=== PATIENT | female | born 1935 | race Caucasian/White ===

== ENCOUNTER 2023-06-21 18:06 | Inpatient (IN) | payer MEDICARE, SELFPAY ==
[2023-06-21] VITALS (12 sets, daily range): BP systolic 88–119; BP diastolic 46–85
[2023-06-21 15:33] LABS: ALT (SGPT) 31 U/L (0-35); AST (SGOT) 35 U/L (14-36); Albumin 3.2 g/dl (3.5-5.0); Alkaline Phosphatase 60 U/L (38-126); Blood Urea Nitrogen 79 mg/dl (7-17); Calcium 9.4 mg/dl (8.4-10.2); Carbon Dioxide 26 mmol/L (22-30); Chloride 108 mmol/L (98-107); Glucose 56 mg/dl (70-99); Magnesium 2.6 mg/dl (1.6-2.3); Potassium 5.2 mmol/L (3.5-5.1); Sodium 137 mmol/L (135-145); Total Bilirubin 0.7 mg/dl (0.2-1.3); Total Protein 5.6 g/dl (6.3-8.2)
[2023-06-21] MEDS: CARDIZEM 15 MG IV (15:49)
[2023-06-21] MEDS: CARDIZEM 125 IV (15:50)
[2023-06-21] MEDS: NSS 500 IV (15:50)
[2023-06-21 15:53] LABS: NT-proBNP 21200 pg/ml; Troponin I 0.231 ng/ml
[2023-06-21 15:54] LABS: % Basophils 0.9 % (0-2); % Eosinophils 2.1 % (0-6); % Immature Granulocytes 0.6 % (0-0.5); % Lymphocytes 18.1 % (20.5-51.1); % Monocytes 12.1 % (1.7-9.3); % Neutrophils 66.2 % (42.2-75.2); Absolute Basophils 0.1 10^3/uL (0-0.2); Absolute Eosinophils 0.2 10^3/uL (0-0.7); Absolute Immature Granulocytes 0.1 10^3/uL (0-0.05); Absolute Lymphocytes 2.1 10^3/uL (1.2-3.4); Absolute Monocytes 1.4 10^3/uL (0.1-0.6); Absolute Neutrophils 7.6 10^3/uL (1.4-6.5); Hemoglobin 11.9 g/dL (12.0-16.0); Mean Corpuscular Hgb 38.1 pg (27.0-31.0); Mean Corpuscular Volume 112.2 fL (81.0-99.0); Mean Platelet Volume 12.3 fL (7.4-10.4); Nucleated Red Blood Cells % 0.2 %; Platelet Count 136 10^3/uL (130-400); Red Blood Cell Count 3.12 10^6/uL (4.20-5.40); Red Cell Dist. Width 15.6 % (11.5-14.5); White Blood Cell Count 11.4 10^3/uL (4.8-10.8)
--- NOTE | 2023-06-21 16:42 | ED.GENMED ---
History of Present Illness
General
Chief Complaint: Fatigue
Source: patient
Exam Limitations: none
Time Seen by Provider: 06/21/23 14:52
Nursing documentation reviewed up to this point in time: agreed with
Travel History
Have you had any contact with someone who has COVID-19?: Yes
Comment: na
Do you have any symptoms of coronavirus? Fever > 100 degrees, chills, cough, shortness of breath, sore throat, loss of taste or smell, muscle aches, or headache?: Yes
Symptoms:: na
History of Present Illness
History of Present Illness:
Patient presents to ED secondary to worsening shortness of breath with exertion over the past 1 week. Denies fever or chills. Denies chest pain. Denies nausea or vomiting. Denies recent illness. Denies recent change in medications or diet. Of
note, patient states that she has had difficult time eating over the past 1 week, as her 'hiatal hernia' has been getting worse. Denies recent travel or surgery. Denies leg pain or swelling. Upon arrival, patient is found to be in rapid atrial
fibrillation, which is new for the patient.
Past History
Past History
ED Past Medical History: NIDDM
Social History
Living: alone
Review of Systems
Review of Systems
Allergies reviewed?: Yes
All Other Systems: ROS reviewed and negative except as documented in HPI and ROS
Constitutional: Reports no symptoms
EENT: Reports no symptoms
Respiratory: Reports trouble breathing
Cardiac: Reports no symptoms
ABD/GI: Reports no symptoms
: Reports no symptoms
Musculoskeletal: Reports no symptoms
Skin: Reports no symptoms
Neurological: Reports no symptoms
Phy Exam
Physical Exam
Physical Exam:
Physical Exam
General: mild distress, not acutely ill. afebrile. tachycardic
Head: nc/at. eomi
Neck: supple. no meningeal signs.
Heart: irregularly irregular, no murmur. equal radial pulses.
Lungs: mild respiratory distress. diminished breath sounds bilaterally
Abdomen: normal bowel sounds. not tender.
Neuro: alert and oriented. no focal neurological deficits
Skin: no rash
Psychiatric: well kept. interactive and cooperative
Extremities: no edema. no calf tenderness.
Course
Orders/Labs/Results
Orders:
Orders
06/21/23 14:55
Electrocardiogram (*1) Urgent
Reason for Study: Tachycardia
EKG- Treatment ONCE
BNP [NT-proBNP] Urgent
Troponin I Urgent
06/21/23 14:59
Comprehensive Metabolic Panel Urgent
Magnesium Urgent
TSH Urgent
06/21/23 Dinner
2200 calorie (18 carb) Diabetic
At Your Request: Limited Participation
06/21/23 15:22
Diltiazem HCl [Cardizem] 15 mg IV NOW STA
06/21/23 15:23
0.9% Sodium Chloride 500 ml [Nss] 500 ml IV BOLUS
CR Chest Portable - 1 View Urgent
Comment:
Reason For Exam: sob
Reason Study Needs to be Portable: Patient Unstable
06/21/23 15:30
Diltiazem 125 mg/125 ml Nss [Cardizem] 125 mg in 125 ml IV PER PROTOCOL
Initial dose in mg/hr, then titrate:: 2.5
Titrate to keep:: Heart rate 80-100 bpm
Titrate by mg/hr:: 5 mg/hr
Frequency of titrations (minutes):: 15
Maximum dose in mg/hr:: 15
06/21/23 15:36
Diltiazem HCl [Cardizem] 25 mg .ROUTE .STK-MED ONE
06/21/23 15:38
Complete Blood Count/With Diff Urgent
06/21/23 16:28
CR Chest - 2 Views Urgent
Comment:
Reason For Exam: sob
06/21/23 17:15
Dextrose 50%-Water [Dextrose 50% Syringe] 25 grams IV NOW STA
06/21/23 17:31
Admit/Transfer Patient As Directed
Co-Sign Provider:
Level of Care: Inpatient admission
Assign to:: IVU
Physician / Group: Hospitalist
Diagnosis: Afib
Reason for Hospitalization: .
Expected length of stay greater than two midnights?: Yes
ELOS- Estimated Length of Stay in days: 3
I certify the patient meets the requirements for IP care: Yes
Code Status As Directed
Resuscitation Status: Full Code
06/21/23 17:35
Heparin 4,000 units IV NOW STA
Heparin 4,000 units IV NOW STA
06/21/23 17:54
Digoxin [Lanoxin] 125 mcg IV NOW STA
06/21/23 17:59
PTT Urgent
06/21/23 18:24
Troponin I Q8H
Aspirin Low Dose EC [Aspir Low (Enteric Coated)] 81 mg PO QPM
Atorvastatin [Lipitor] 80 mg PO QPM
Calcium Gluconate 1 gram/100mL [Calcium Gluconate] 1 gram in 100 ml IV ONCE
Dextrose 50%-Water [Dextrose 50% Syringe] 12.5 grams IV [id number] PRN
Ezetimibe [Zetia] 10 mg PO QPM
Glucagon [GlucaGen] 1 mg IM PRN PRN
Heparin 57091 Units/250 ml 25,000 units in 250 ml IV PER PROTOCOL
Weight to be used for heparin protocol in kilograms (kg):: 88
Protocol:: Cardiac Tx/Acute Coronary
PTT Goal Range to be used:: PTT 73 to 111 seconds
Order type:: Initial
INITIAL Infusion Dose (UNITS/KG/hr) & then follow protocol:: 12 units/kg/hr
Infusion Dose in UNITS/hr & then follow protocol (UNITS/hr):: 1,000
INFUSION RATE in mL/hr & then follow protocol (mL/hr):: 10
PTT less than or equal to 64 seconds:: Increase rate by 200 units/hr (+ 2 mL/hr)
PTT 64.1 to 72.9 seconds:: Increase rate by 100 units/hr (+ 1 mL/hr)
PTT 73 to 111 seconds:: Target Range. No change in rate.
PTT 111.1 to 130.9 seconds:: Decrease rate by 100 units/hr (- 1 mL/hr)
PTT 131 to 199.9 seconds:: HOLD for 1 hr. Then decrease rate by 200 units/hr (- 2 mL/hr)
PTT greater than or equal to 200 seconds:: HOLD for 2 hrs & Notify Provider. Then decrease by 200 units/hr (-
2 mL/hr)
Lab follow-up:: Each change, PTT q6h until 2 consecutive are therapeutic. Then PTT
daily.
Loperamide [Imodium] 2 mg PO Q6HPRN PRN
06/21/23 18:24
Echo 2D MMode Color/Doppler [Echo 2D MMode Color/Doppler] Routine
Reason for Study: Afib
Consult Cardiology [CARDIOLOGY CONSULT] Routine
Consulting Provider: Ian Gonzalez
Was physician already notified: Yes
Reason for consult: A fib
PTT Urgent
Comment: Obtain baseline before beginning heparin infusion if not already collected
Bedside Glucose Monitoring As Directed
Frequency: AC&HS
Comment: Change to q6h if pt on TPN, tube feeding or not eating
Bladder Scan As Directed
Follow Bladder Retention/Intermittent Cath Algorithm?: Yes
PRN if no void in __ hours: 6
Frequency: Per Retention Algorithm
If Bladder Scan Result >: 400
then:: Straight cath
Notify MD As Directed
Notify physician if: Call provider for further orders if PTT is greater than or equal to 200 per heparin
infusion protocol.
Nursing to Place Non Medication Order As Directed
Physician Order: PTT 6 hours after initial start of Heparin infusion
Straight Cath As Directed
Frequency: Per Retention Algorithm
Additional Instructions: straight cath as needed per acute urinary retention algorithm for 24 hrs
Additional Instructions: for bladder scan greater than 400 mL
06/21/23 20:00
Acetaminophen [Tylenol] 650 mg PO BID
06/21/23 22:00
Doxazosin Mesylate [Cardura] 2 mg PO HS
06/22/23 02:24
Troponin I Q8H
06/22/23 06:00
Glycohemoglobin (HgbA1c) IN AM
06/22/23 07:30
Insulin Aspart Corrective Low [Novolog Flexpen-Low Resistance] See Protocol SC AC
06/22/23 08:00
Pantoprazole [Protonix IV] 40 mg IV DAILY
06/22/23 10:24
Troponin I Q8H
Abnormal Lab Results
06/21/23 06/21/23 06/21/23
14:55 14:59 15:38
WBC 11.4 H 10^3/uL
(4.8-10.8)
RBC 3.12 L 10^6/uL
(4.20-5.40)
Hgb 11.9 L g/dL
(12.0-16.0)
Hct 35.0 L %
(37.0-47.0)
MCV 112.2 H fL
(81.0-99.0)
MCH 38.1 H pg
(27.0-31.0)
RDW 15.6 H %
(11.5-14.5)
MPV 12.3 H fL
(7.4-10.4)
Abs Immat Gran (auto) 0.1 H 10^3/uL
(0-0.05)
Absolute Neuts (auto) 7.6 H 10^3/uL
(1.4-6.5)
Absolute Monos (auto) 1.4 H 10^3/uL
(0.1-0.6)
Immature Gran % 0.6 H %
(0-0.5)
Lymphocytes % 18.1 L %
(20.5-51.1)
Monocytes % 12.1 H %
(1.7-9.3)
Potassium 5.2 H mmol/L
(3.5-5.1)
Chloride 108 H mmol/L
(98-107)
BUN 79 H mg/dl
(7-17)
Creatinine 2.9 H mg/dL
(0.6-1.0)
Glucose 56 L mg/dl
(70-99)
Magnesium 2.6 H mg/dl
(1.6-2.3)
Troponin I 0.231 H* ng/ml
Total Protein 5.6 L g/dl
(6.3-8.2)
Albumin 3.2 L g/dl
(3.5-5.0)
TSH 5.20 H uIU/ml
(0.47-4.68)
POC Glucose
06/21/23
17:11
WBC
RBC
Hgb
Hct
MCV
MCH
RDW
MPV
Abs Immat Gran (auto)
Absolute Neuts (auto)
Absolute Monos (auto)
Immature Gran %
Lymphocytes %
Monocytes %
Potassium
Chloride
BUN
Creatinine
Glucose
Magnesium
Troponin I
Total Protein
Albumin
TSH
POC Glucose 53 L* mg/dl
(70-99)
06/21/23 15:38
06/21/23 14:59
Vital Signs
Initial and Last Documented VS:
Initial Vital Signs
Temp Pulse Resp BP Pulse Ox
98.4 F 150 23 119/72 100
06/21/23 14:33 06/21/23 14:33 06/21/23 14:33 06/21/23 14:33 06/21/23 14:33
Last Documented Vital Signs
Temp Pulse Resp BP Pulse Ox
98.4 F 127 18 110/61 99
06/21/23 14:33 06/21/23 18:29 06/21/23 18:29 06/21/23 18:29 06/21/23 18:29
MDM/Problems Addressed
MDM/Problems Addressed:
Patient found to be in rapid atrial fibrillation. Patient started on Cardizem infusion with improvement in heart rate. Elevated troponin noted, without chest pain, likely secondary to tachycardia. Patient will be admitted for further evaluation
and treatment.
Will defer anticoagulation to admitting team.
Critical care statement: A total of 40 minutes of critical care time was provided for this patient. This includes management of unstable vital signs, evaluation of the patient at bedside, reviewing the patient's pertinent medical records, discussion
with consultants, review of old EKGs and review of pertinent medical records. This time with separate from time utilized to perform the aforementioned documented procedures
*Critical Care Note
Total Time (30-74mins, 75-104mins- exclusive of procedures): 40 min
ED Attending Note
-
Portions of this chart may have been created with voice recognition software.� Occasional wrong word or��sound alike� substitutions may have occurred due to the inherent limitations of voice recognition software.
Discharge Plan
Departure
Patient Disposition: Admit
Date of Disposition: 06/21/23
Time of Disposition: 16:48
Admit to: IMU
Presentation/result/management discussed w/ accepting MD/DO: Hospitalist
Discharge Problem:
Atrial fibrillation, rapid, Abnormal cardiac enzyme level
Interventions
Interventions:
*Risk Screen - Suicide Last Done: 06/21/23 14:33
*General Assessment Last Done: 06/21/23 14:33
*Neglect/Abuse Screening Last Done: 06/21/23 14:33
*ED COVID-19 Vaccine History Last Done: 06/21/23 14:33
*Nursing Disposition Last Done: 06/21/23 18:27
Discharge Date and Time
Discharge Date/Time: 06/21/23 18:27
[2023-06-21 17:13] LABS: Glucose - Point of Care 53 mg/dl (70-99)
[2023-06-21] MEDS: DEXTROSE 50% SYRINGE 25 GRAMS IV (17:15)
--- NOTE | 2023-06-21 17:30 | HPS.HSE ---
Family Physician
-
Family Physician: Ashtyn Newby
Chief Complaint
-
Shortness of breath and weakness for 1 week during
History of Present Illness
88 years old female presented with shortness of breath and weakness for 1 week. History taken from the patient and family at bedside. Patient had diarrhea a week ago. She had one-time vomiting and thought was related to her hiatal hernia. She
has not been eating well the whole week. She had another bout of diarrhea last night for one time. Nonbloody. She continued to have shortness of breath and not feeling well. She was brought into the emergency room. She was found to have rapid
atrial fibrillation around 140-150. She was started on Cardizem drip. Patient denied history of cardiac disease in the past although coronary artery disease was on her record. 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 Her blood pressure dropped
in the ER to systolic 88 and patient became cold and clammy. Immediate check of blood glucose showed 53. Patient was given dextrose 50. She was given IV fluid and Cardizem drip was put on hold. Patient took her insulin today without eating
proper meals. Patient denied chest pain. She denied hypoxia in the past. She had mild elevation in white count at 11.4 creatinine 2.9 with potassium 5.2. Patient has known chronic kidney disease stage IV per records. Patient follows with
[facility] for kidney disease. Initial troponin was 0.231.
Medical History
Past Medical History
Past Medical History: Reports Other ( Type 2 diabetes, polymyalgia rheumatica, insomnia, hyperlipidemia, chronic kidney disease stage IV, venous insufficiency of lower extremities, obesity, coronary artery disease, dysphagia/hiatal hernia, back
pain, gastroesophageal reflux disease.)
Past Surgical History: Reports Other (No recent major surgery)
Social History
Tobacco: Non-smoker
Alcohol: None
Drug: None
Personal:
Living: Alone
Employment: Retired
Family History
Family History: Other (History of atrial fibrillation in the family)
Allergies / Home Medications
Allergies reflects when Allergies were last updated in [facility].
Home Medications with original date entered in [facility]
Allergy/Medication List:
Allergies
Allergy/AdvReac Type Severity Reaction Status Date / Time
No Known Allergies Allergy Verified 09/14/15 09:54
Home Medications
insulin aspar prot-insulin aspart 100 unit/mL (70-30) subcutaneous pen (Novolog Mix 70-30FlexPen U-100) 15 units (0.15 mL) SC BID@0800,1700 ##2 08/15/19
acetaminophen 325 mg tablet (Tylenol) 650 mg PO BID 06/21/23
aspirin 81 mg tablet,delayed release 81 mg PO QPM 06/21/23
atorvastatin 80 mg tablet (Lipitor) 80 mg PO QPM 06/21/23
bismuth subsalicylate 262 mg/15 mL oral suspension (Pepto-Bismol) 262 mg PO BIDPRN PRN diarrhea 06/21/23
calcium carbonate 500 mg-vitamin D3 10 mcg (400 unit) tablet (Calcium 500 + D) 1 tab PO BID 06/21/23
carvedilol 25 mg tablet (Coreg) 25 mg PO BID 06/21/23
doxazosin 2 mg tablet 2 mg PO HS 06/21/23
ezetimibe 10 mg tablet (Zetia) 10 mg PO QPM 06/21/23
furosemide 40 mg tablet (Lasix) 40 mg PO DAILY 06/21/23
loperamide 2 mg tablet 2 mg PO Q4HPRN PRN diarrhea 06/21/23
losartan 100 mg tablet 100 mg PO DAILY 06/21/23
omega 0-gzg-ozt-fish oil 1,000 mg (120 mg-180 mg) capsule (Fish Oil) 1 cap PO DAILY 06/21/23
therapeutic multivitamin 1 tab PO DAILY 06/21/23
Review of Systems
-
History Source: Patient
A 12 point ROS was completed and negative except as noted: Yes
Constitutional: Denies Fever or Chills
EENT: Denies Sore Throat or Runny Nose
Respiratory: Reports Trouble Breathing; Denies Cough
Cardiac: Denies Chest Pain
Abdomen/GI: Denies Abdominal Pain
: Denies Dysuria
Musculoskeletal: Denies Joint Pain
Skin: Denies Itching
Neurological: Denies Numbness
Endocrine: Denies Temp Intolerance
Hematologic/Lymphatic: Denies Bruising
Psych: Denies Panic Disorder
Physical Exam
Vital Signs
Vital Signs
Temp Pulse Resp BP Pulse Ox
98.4 F 109 17 88/59 97
06/21/23 14:33 06/21/23 17:02 06/21/23 15:30 06/21/23 17:02 06/21/23 17:02
Physical Exam
General: Appears Chronically Ill
HEENT: Anicteric and Moist mucous membranes
Respiratory: Rales (At the base)
Cardiac: Irregular Rhythm and Tachycardia
GI: Soft, Non Tender and Non Distended
Rectal: No Maroon Stools
Genito-urinary: No costovertebral tender
Musculoskeletal: No Clubbing, No Cyanosis and No Edema
Skin: No Jaundice
Neuro: AO x 3; No Slurred Speech, Facial Droop or Tremors
Psych: Calm and Intact Judgment/Insight
Laboratory Results
-
06/21/23 15:38
06/21/23 14:59
Laboratory Results
Total Bilirubin 0.7 mg/dl (0.2-1.3) 06/21/23 14:59
AST 35 U/L (14-36) 06/21/23 14:59
ALT 31 U/L (0-35) 06/21/23 14:59
Alkaline Phosphatase 60 U/L (38-126) 06/21/23 14:59
Troponin I 0.231 ng/ml H* 06/21/23 14:55
Impression/Plan
-
88 years old female presented with shortness of breath and weakness and was found to have rapid atrial fibrillation
#Atrial fibrillation with rapid ventricular response. No history of similar episodes in the past.
No history of cardiac disease per patient but CAD on records
Currently, patient denies chest pain. She reported weakness and shortness of breath over the last few days
Chest x-ray showing mild pleural effusion with signs of interstitial markings/cardiomegaly
EKG showed atrial fibrillation with with ST/T wave abnormalities
Troponin mildly positive.
Admit the patient to high level care IVU
Start the patient on Cardizem drip but patient became hypotensive. Will give some volume support with IV fluid
Cut back on drip rate.
Order echocardiogram
Start the patient on intravenous heparin. Monitor PTT
If blood pressure drops, will consider digoxin temporarily
Patient is not toxic appearing.
Appreciate cardiology input
# Hypoglycemia. Type 2 diabetes
Secondary to taking insulin and not maintaining good oral intake
Change her insulin to sliding scale only with Accu-Chek. Start dextrose 50 given now. Will monitor blood glucose
#Chronic kidney disease stage IV.
Creatinine on admission 2.9. Creatinine 2020 1.7. According to records, she is stage IV per nephrology evaluation
No flank pain. No hematuria. Monitor for retention
Will do bladder scan protocol
# Hyperkalemia. Hold losartan. Will give intravenous calcium gluconate.
Recheck potassium in few hours
# Type II MS secondary to rapid atrial fibrillation
Will trend troponin. No chest pain. Patient is on IV heparin.
Order echo
Eventual ischemic workup
# Hypovolemic shock/hypotension exacerbated by Cardizem drip
I think the patient is volume depleted. She has not eaten for a while.
Will give IV fluid and monitor. Hold blood pressure medications including Lasix, losartan, carvedilol.
# Obesity
# Gastroesophageal reflux disease/history of hiatal hernia
Keep on PPI, will add IV Protonix.
As needed Imodium for diarrhea. Abdominal examination is benign.
# Hyperlipidemia
# History of polymyalgia rheumatica/insomnia
Continue with Tylenol twice daily.
Total critical time spent to see the patient, examine the patient on the floor, review data and lab results, discuss treatment plan with patient, ER doctor and nursing staff around 85 minutes
[2023-06-21 18:20] LABS: APTT 25.6 Sec (23.4-35.0)
[2023-06-21 18:23] LABS: Glucose - Point of Care 151 mg/dl (70-99)
--- NOTE | 2023-06-21 18:50 | PTCARENOTE ---
received patient from ER, extremely [place] with bialt hearing aids and son at bedside. monitor placed, Afib, HR 132, BP 110/61. 2 INT's in left arm, patient has blood work that needs to be drawn , patient is a very difficult stick and unable to obtain
, paged phlebotomy. noticed from ER report that BS was 53 and was treated in ER but no follow up BS, accu check obtained 151, will obtain venous glucose as per protocol. ordered patient dinner. oriented to room and surroundings. report given to on
coming RN.
[2023-06-21] MEDS: CALCIUM GLUCONATE 100 IV (19:56)
[2023-06-21] MEDS: ZETIA 10 MG PO (20:02)
[2023-06-21] MEDS: ASPIR LOW (ENTERIC COATED) 81 MG PO (20:02)
[2023-06-21] MEDS: TYLENOL 650 MG PO (20:02)
[2023-06-21] MEDS: LIPITOR 80 MG PO (20:03)
[2023-06-21] MEDS: LANOXIN 125 MCG IV (20:03)
[2023-06-21 20:05] LABS: APTT 33.5 Sec (23.4-35.0)
[2023-06-21 20:07] LABS: Glucose 143 mg/dl (70-99)
[2023-06-21] MEDS: HEPARIN 4000 UNITS IV (20:34)
[2023-06-21] MEDS: HEPARIN 25000 UNITS/250 ML IV (20:41)
[2023-06-21 22:38] LABS: Glucose - Point of Care 206 mg/dl (70-99)
[2023-06-21 22:53] LABS: Troponin I 0.353 ng/ml
--- NOTE | 2023-06-21 23:09 | PTCARENOTE ---
Addendum entered by Kailee Mckinney RN 06/21/23 23:26:
She continues to be A-Fib on the monitor with HR in the 120s-130s.
Original Note:
Received patient at change of shift this PM. AAOx3. She is [employer] [employer] bilaterally and wears hearing aides in both ears. VSS. She is hypotensive and unable to tolerate Cardizem drip at this time. SBPs dropped into 80s with this in ED. Will continue to
monitor BPs. Discussed this with Nessa Cisneros NP and she would like to keep Cardizem as an active order, but not started again unless BPs are maintaining SBP of over 100. HS BP medication held and parameters added. INTx2 patent. She is a difficult
stick and a midline was placed in her right upper arm. Heparin drip started at 10mL/hr. She denies chest pain or discomfort. Plan of care discussed. We discussed her medications in depth and Heparin was explained. She has no further questions about
these at this time. She is receptive to teaching and motivated. She denies pain and appears comfortable in bed at this time. Will continue to monitor.
[2023-06-22] VITALS (22 sets, daily range): BP systolic 89–123; BP diastolic 46–91; BMI 34.6
[2023-06-22 03:57] LABS: APTT 156.4 Sec (23.4-35.0)
--- NOTE | 2023-06-22 06:36 | W.PN.HOSP.TC ---
Today's Communication/Plan
-
.
Assessment / Plan
Assessment / Plan
Physical Exam
General: Appears Chronically Ill but not in distress.
HEENT: Anicteric and Moist mucous membranes
Respiratory: Rales (At the base)
Cardiac: Irregular Rhythm and Tachycardia
GI: Soft, Non Tender and Non Distended
Rectal: No Maroon Stools
Genito-urinary: No costovertebral tender
Musculoskeletal: No Clubbing, No Cyanosis and No Edema
Skin: No Jaundice
Neuro: AO x 3; No Slurred Speech, Facial Droop or Tremors
Psych: Calm and Intact Judgment/Insight
88 years old female presented with shortness of breath and weakness and was found to have rapid atrial fibrillation
#Atrial fibrillation with rapid ventricular response.� No history of similar episodes in the past.
HR around 110-130 this morning
Not on Cardizem gtt due to hypotension
Given one dose Digoxin that helped, will try another
Can start on low dose oral Cardizem or IV Cardizem low rate
Order Echo
on IV Heparin gtt . [id number] around 6
Appreciate cardiology input
# Suspect Acute HRpEF
We do not have new Echo, will repeat
Unable to do Lasix while low BP, gaol to stabilize HR for now and trial of diuretic therapy
Might need pressure support
# Hypoglycemia.�Resolved
Hx of Type 2 diabetes
s/p D50
Now on ISS / Diabetic diet
#Chronic kidney disease stage IV.
Creatinine on admission 2.9.� Creatinine 2020 1.7.� According to records, she is stage IV per nephrology evaluation
No flank pain.� No hematuria.� Monitor for retention
Bladder scan protocol
Repeat BMP
# Hyperkalemia.� Hold losartan.� s/p intravenous calcium gluconate.
Recheck potassium
# Type II MO secondary to rapid atrial fibrillation
� No chest pain.� Patient is on IV heparin.
Order echo
Eventual ischemic workup
# Hypovolemic shock/hypotension exacerbated by Cardizem drip
I think the patient is volume depleted.� She has not eaten for a while.
Will give IV fluid and monitor.� Hold blood pressure medications including Lasix, losartan, carvedilol.
# Obesity
# Gastroesophageal reflux disease/history of hiatal hernia
Keep on PPI IV Protonix.
As needed Imodium for diarrhea.� Abdominal examination is benign.
# Hyperlipidemia
# History of polymyalgia rheumatica/insomnia
Continue with Tylenol twice daily.
Total time spent to see the patient, examine the patient on the floor, review data and lab results, discuss treatment plan with patient, and nursing staff around 59 minutes
Anticipated Discharge: > 48 hours
Subjective/Interval History
-
Date of Service: June 22, 2023
Exertional SOB
No chest pain
No abd pain
Night team: Digoxin helped to lower HR, Off Cardizem gtt
Objective Data
-
Labs:
Laboratory Results
06/21/23 06/21/23 06/22/23
19:42 19:43 02:42
APTT 33.5 156.4 H*
Glucose 143 H
06/22/23
11:10
APTT Pending
Glucose
Vital Signs:
Vital Signs
Temp Pulse Resp BP Pulse Ox
98.3 F 145 22 103/66 100
06/22/23 02:35 06/22/23 02:32 06/22/23 02:35 06/22/23 02:32 06/22/23 02:35
I&O
06/20/23 06/21/23 06/22/23
06:59 06:59 06:59
Intake Total 960 / 960
Balance 960 / 960
--- NOTE | 2023-06-22 07:50 | CON.CAR ---
Consultation
Consultation Request
Date/Time Consultation Requested: 06/21/2023 at 2000
Date/Time Consultation Performed: 06/22/2023 at 750
Requesting Provider: Dr. Aly
Performing Provider: Ian Gonzalez
Reason for Consultation: Atrial fibrillation
Medical History
-
Chief Complaint: Shortness of breath, fatigue
History of Present Illness:
88-year-old woman who has been short of breath for 1 week following what could have been a gastroenteritis, now with shortness of breath and progressive fatigue over the last month or so. No prior history of atrial fibrillation. She presented to
the emergency department with marginal blood pressure, heart rate approximately 140, markedly elevated proBNP and evidence of heart failure with atrial fibrillation and rapid ventricular response. Heart rate has been difficult to control since
admission on IV diltiazem, she is short of breath, no awareness of tachycardia. She has dysphagia and was planning to see Dr. Sweeney.
PMH:
CKD 4, creatinine 1.77, GFR 28 May 20, 2023
Type 2 diabetes
Hypertension
Hyperlipidemia
Polymyalgia rheumatica
Diabetic neuropathy
Obesity
Past Medical History
Past Medical History: Other (Per HPI)
Past Surgical History: Other (Cataract surgery)
Social History
Tobacco: Former Smoker
Alcohol: Occasional
Drug: None
Personal:
Living: Alone
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
Family History
Family History: Reviewed & Not Pertinent (Lives with foster families)
Allergies / Home Medications
Allergy/AdvReac Type Severity Reaction Status Date / Time
No Known Allergies Allergy Verified 09/14/15 09:54
Medication Instructions Recorded Confirmed Type
insulin aspar prot-insulin aspart 15 units (0.15 mL) SC 08/15/19 06/21/23 Rx
100 unit/mL (70-30) subcutaneous BID@0800,1700 ##2
pen (Novolog Mix 70-30FlexPen
U-100)
acetaminophen 325 mg tablet 650 mg PO BID 06/21/23 06/21/23 History
(Tylenol)
aspirin 81 mg tablet,delayed 81 mg PO QPM 06/21/23 06/21/23 History
release
atorvastatin 80 mg tablet (Lipitor) 80 mg PO QPM 06/21/23 06/21/23 History
bismuth subsalicylate 262 mg/15 mL 262 mg PO BIDPRN PRN diarrhea 06/21/23 06/21/23 History
oral suspension (Pepto-Bismol)
calcium carbonate 500 mg-vitamin 1 tab PO BID 06/21/23 06/21/23 History
D3 10 mcg (400 unit) tablet
(Calcium 500 + D)
carvedilol 25 mg tablet (Coreg) 25 mg PO BID 06/21/23 06/21/23 History
doxazosin 2 mg tablet 2 mg PO HS 06/21/23 06/21/23 History
ezetimibe 10 mg tablet (Zetia) 10 mg PO QPM 06/21/23 06/21/23 History
furosemide 40 mg tablet (Lasix) 40 mg PO DAILY 06/21/23 06/21/23 History
loperamide 2 mg tablet 2 mg PO Q4HPRN PRN diarrhea 06/21/23 06/21/23 History
losartan 100 mg tablet 100 mg PO DAILY 06/21/23 06/21/23 History
omega 1-zql-ybp-fish oil 1,000 mg 1 cap PO DAILY 06/21/23 06/21/23 History
(120 mg-180 mg) capsule (Fish Oil)
therapeutic multivitamin 1 tab PO DAILY 06/21/23 06/21/23 History
Physical Exam
Vital Signs
Temp Pulse Resp BP Pulse Ox
36.6 C 129 22 104/67 100
06/22/23 07:47 06/22/23 07:47 06/22/23 07:47 06/22/23 07:47 06/22/23 07:47
Lab Results
06/21/23 15:38
06/21/23 19:42
Troponin I 0.340 ng/ml H* 06/22/23 02:42
Ebr-R-Slpkrwtipty Pept 04065 pg/ml 06/21/23 14:55
Physical Exam
General: No Apparent Distress (Possibly mildly tachypneic)
Respiratory: Other (Diminished breath sounds)
Cardiac: Irregular Rhythm (Tachycardic rate around 140, no murmurs) and JVD (JVD difficult to assess)
Musculoskeletal: No Edema
Skin: Warm
Neuro: AO x 3
Psych: Calm
Impression / Plan
-
Impression:
Acute heart failure, suspect acute HFpEF
New onset atrial fibrillation with RVR, suspect 1 week in duration
DANIEL with CKD 4
Type 2 diabetes
Hypertension
Hyperlipidemia
Polymyalgia rheumatica
Diabetic neuropathy
Obesity
Dysphagia
Echo 08/2019: EF 50-55%, normal RV, mildly dilated left atrium, aortic sclerosis
Holter monitor August 2020: Normal sinus rhythm average 63 bpm occasional PVCs and PACs with rare short atrial and ventricular runs, 2% PVC burden, 1% PAC burden
Plan:
She presents with acute heart failure, I suspect HFpEF, likely related to atrial fibrillation.
Management is very challenging. She has acute kidney injury, and a history of dysphagia. A-fib duration is probably at least a week, possibly a month.
Thus far we have been unable to control her heart rate largely related to marginal blood pressure. We will attempt to manage without the use of pressor support though this may be necessary.
Will add IV amiodarone for rate control. She has received 2 doses of dig, given acute kidney injury will not give any more. Will try low-dose metoprolol and will add midodrine to support blood pressure. She may need Jitendra-Synephrine which would
require transfer to IMU or ICU.
Continue IV diltiazem for now though this is relatively contraindicated in the setting of HFpEF.
She will likely need transesophageal echo and cardioversion. However she may need GI evaluation given her history of dysphagia. She will likely require either EGD or barium swallow.
Stop heparin, start renally dosed Eliquis.
I discussed with patient and son.
Data Reviewed
-
EKG: Tracing Personally Visualized and interpreted (ECG atrial fibrillation, rapid ventricular response, nonspecific ST and T wave changes, consider lateral ischemia)
Radiology: Image Personally Visualized and interpreted (Small bilateral pleural effusions, interstitial prominence)
Labs: Labs Reviewed by me (Hemoglobin 11.9, MCV 112, platelets 136, troponin 0.34, proBNP 21,200, creatinine is 2.9, had been 1.7 on August 15, 2019, magnesium 2.6, normal TSH, potassium 5.2)
Old Records: Reviewed
[2023-06-22] MEDS: NSS (PRESERVATIVE FREE) 10 ML IV (08:00)
[2023-06-22 08:33] LABS: Glycohemoglobin (HgbA1c) 5.5 % (4.0-5.6)
[2023-06-22] MEDS: CORDARONE 103 MG IV (08:43)
[2023-06-22] MEDS: LOPRESSOR 12.5 MG PO ×4 (08:44→23:24)
[2023-06-22] MEDS: PROTONIX IV 40 MG IV (08:44)
[2023-06-22] MEDS: TYLENOL 650 MG PO ×2 (08:44→19:35)
[2023-06-22] MEDS: ELIQUIS 2.5 MG PO ×2 (08:47→19:34)
[2023-06-22] MEDS: FLUSH (NSS) 1 FLUSH IV (08:47)
[2023-06-22] MEDS: ProAmatine 5 MG PO ×3 (08:50→17:12)
[2023-06-22] MEDS: NOVOLOG FLEXPEN-LOW RESISTANCE SC ×2 (08:53→13:19)
[2023-06-22 08:55] LABS: Glucose - Point of Care 139 mg/dl (70-99)
[2023-06-22] MEDS: LANOXIN 125 MCG IV (09:07)
[2023-06-22] MEDS: CORDARONE 518 MG IV (09:15)
--- NOTE | 2023-06-22 09:26 | PTCARENOTE ---
Dr. Artem Gonzalez in with patient, monitor shows Afib in the 130's BP 104/67, Digoxin, Lopressor, midodrine, Eliquis given as ordered. IV amiodarone bolus given followed by a IV amiodarone drip via right midline at 1mg/min for 6 hours then will be
decreased to 0.5mg/min. IV heparin gtt. D/C'd as ordered. lab work drawn thru midline as ordered and sent to lab. BP 89/75, Dr. Artem Gonzalez aware that IV cardizem gtt has not been on since ER yesterday. patient is going to remain NPO for barium
swallow test as ordered. patient is extremely MINTO with bilat. hearing aids in. patient is SOB, o2 sat on 2 LNC 96%, can hear audible wheezes. patient doesnot appear to be in any distress at this time. patient will be transferred to CVICU.
[2023-06-22 09:33] LABS: Hematocrit 32.9 % (37.0-47.0); Hemoglobin 10.6 g/dL (12.0-16.0); Mean Corp Hgb Conc. 32.2 g/dL (33.0-37.0); Mean Corpuscular Hgb 37.5 pg (27.0-31.0); Mean Corpuscular Volume 116.3 fL (81.0-99.0); Mean Platelet Volume 12.3 fL (7.4-10.4); Platelet Count 129 10^3/uL (130-400); Red Blood Cell Count 2.83 10^6/uL (4.20-5.40); Red Cell Dist. Width 15.6 % (11.5-14.5); White Blood Cell Count 12.2 10^3/uL (4.8-10.8)
[2023-06-22 09:49] LABS: Blood Urea Nitrogen 82 mg/dl (7-17); Calcium 8.9 mg/dl (8.4-10.2); Carbon Dioxide 24 mmol/L (22-30); Chloride 103 mmol/L (98-107); Estimated Creatinine Clearance 13 ml/min; Glucose 144 mg/dl (70-99); Potassium 4.8 mmol/L (3.5-5.1); Sodium 135 mmol/L (135-145); eGFR 14.59
[2023-06-22 09:58] LABS: Troponin I 0.245 ng/ml
--- NOTE | 2023-06-22 11:34 | PTCARENOTE ---
Barium swallow completed, patient will return to IVU.
[2023-06-22 12:17] LABS: Glucose - Point of Care 180 mg/dl (70-99)
--- NOTE | 2023-06-22 14:14 | PTCARENOTE ---
Addendum entered by Sonia Torres RN 06/22/23 14:16:
Dr. Aly aware, already consulted renal.
Original Note:
patient has not voided since this am, bladder scanned patient, 4cc of urine. patient has no urge to void.
--- NOTE | 2023-06-22 14:44 | W.CON.NEPH ---
Addendum entered and electronically signed by Jean Carlos Estrella DO 06/22/23 15:16:
sbp ~100 and patient with volume overload
40mg IV lasix given
Original Note:
Consultation
-
Date/Time Consultation Requested: June 22, 2023 218pm
Date/Time Consultation Performed: June 22, 2023 2:18 PM
Requesting Provider: Sheeba
Performing Provider: Delores
Reason for Consultation: DANIEL/CKD 4
Medical History
-
Chief Complaint: Acute on chronic renal failure
History of Present Illness:
88-year-old woman who has been short of breath for several weeks following what could have been a gastroenteritis, now with shortness of breath and progressive fatigue over the last month or so.� No prior history of atrial fibrillation.� She
presented to the emergency department with marginal blood pressure, heart rate approximately 140, markedly elevated proBNP and evidence of heart failure with atrial fibrillation and rapid ventricular response.� Heart rate has been difficult to
control since admission on IV diltiazem, she is short of breath, no awareness of tachycardia.� She has dysphagia due to esophageal dysfunction. The patient has a longstanding history of diabetes with multiple microvascular complications and is
maintained on insulin therapy. She is maintained on Lasix therapy 40 mg daily for her congestive heart failure. She does have a history of hypertension and is maintained on losartan and carvedilol and doxazosin. She is seen by Dr. Avila of
nephrology for her CKD stage IV with a baseline creatinine noted to be 1.77 in May 2023. I was consulted for acute on chronic renal failure as her creatinine has now escalated up to 3 and she is essentially anuric.
Past Medical History
CKD 4, creatinine 1.77, GFR 28 May 20, 2023
Type 2 diabetes with known neuropathy
Hypertension
Hyperlipidemia
Polymyalgia rheumatica
Diabetic neuropathy
Obesity
Coronary artery
Hearing impaired
Social History
Tobacco: Former Smoker
Alcohol: Occasional
Drug: None
Family History
No CKD
Allergies / Home Medications
Allergy/AdvReac Type Severity Reaction Status Date / Time
No Known Allergies Allergy Verified 09/14/15 09:54
Medication Instructions Recorded Confirmed Type
acetaminophen 325 mg tablet 650 mg PO BID Pain 06/21/23 06/21/23 History
(Tylenol)
aspirin 81 mg tablet,delayed 81 mg PO QPM Blood Clot 06/21/23 06/21/23 History
release Prevention/Tx
atorvastatin 80 mg tablet (Lipitor) 80 mg PO QPM High Cholesterol 06/21/23 06/21/23 History
bismuth subsalicylate 262 mg/15 mL 262 mg PO BIDPRN PRN diarrhea 06/21/23 06/21/23 History
oral suspension (Pepto-Bismol)
calcium carbonate 500 mg-vitamin 1 tab PO BID Supplement 06/21/23 06/21/23 History
D3 10 mcg (400 unit) tablet
(Calcium 500 + D)
carvedilol 25 mg tablet (Coreg) 25 mg PO BID Heart 06/21/23 06/21/23 History
Disease/Condition
doxazosin 2 mg tablet 2 mg PO HS Urinary Issue 06/21/23 06/21/23 History
ezetimibe 10 mg tablet (Zetia) 10 mg PO QPM High Cholesterol 06/21/23 06/21/23 History
furosemide 40 mg tablet (Lasix) 40 mg PO DAILY Fluid 06/21/23 06/21/23 History
Retention/Swelling
loperamide 2 mg tablet 2 mg PO Q4HPRN PRN diarrhea 06/21/23 06/21/23 History
losartan 100 mg tablet 100 mg PO DAILY Blood Pressure 06/21/23 06/21/23 History
omega 4-zyk-svx-fish oil 1,000 mg 1 cap PO DAILY High Cholesterol 06/21/23 06/21/23 History
(120 mg-180 mg) capsule (Fish Oil)
therapeutic multivitamin 1 tab PO DAILY Supplement 06/21/23 06/21/23 History
insulin aspar prot-insulin aspart 15 units SC BID@00,1700 Diabetes 06/22/23 06/21/23 History
100 unit/mL (70-30) subcutaneous
pen (Novolog Mix 70-30FlexPen
U-100)
Review of Systems
-
History Source: Patient
All other systems: Negative unless noted
Constitutional: Fatigue (Decreased appetite)
EENT: Other (Chronic hearing impairment ()
Respiratory: Trouble Breathing
Cardiac: No Symptoms
Abdomen/GI: No Symptoms
: Incontinence and Difficulty Voiding
Musculoskeletal: No Symptoms
Skin: No Symptoms
Neurological: Other (Baseline lower extremity neuropathy)
Endocrine: No Symptoms
Hematologic/Lymphatic: No Symptoms
Physical Exam
Vital Signs
Vital Signs
Temp Pulse Resp BP Pulse Ox
97.9 F 127 22 109/89 96
06/22/23 07:47 06/22/23 13:18 06/22/23 07:47 06/22/23 13:21 06/22/23 08:30
Lab Results
WBC 12.2 10^3/uL (4.8-10.8) H 06/22/23 09:24
RBC 2.83 10^6/uL (4.20-5.40) L 06/22/23 09:24
Hgb 10.6 g/dL (12.0-16.0) L 06/22/23 09:24
Hct 32.9 % (37.0-47.0) L 06/22/23 09:24
Plt Count 129 10^3/uL (130-400) L 06/22/23 09:24
Sodium 135 mmol/L (135-145) 06/22/23 09:24
Potassium 4.8 mmol/L (3.5-5.1) 06/22/23 09:24
Chloride 103 mmol/L (98-107) 06/22/23 09:24
Carbon Dioxide 24 mmol/L (22-30) 02/11/24 09:24
BUN 82 mg/dl (7-17) H 06/22/23 09:24
Creatinine 3.0 mg/dL (0.6-1.0) H 06/22/23 09:24
eGFR 14.59 06/22/23 09:24
Glucose 144 mg/dl (70-99) H 06/22/23 09:24
Calcium 8.9 mg/dl (8.4-10.2) 06/22/23 09:24
Nxq-J-Tpufcnussvk Pept 58689 pg/ml 06/21/23 14:55
Albumin 3.2 g/dl (3.5-5.0) L 06/21/23 14:59
Physical Exam
General: AOx3 and Other (Obese)
HEENT: PERRL, EOMI, Ear/Nose Intact, Hearing Normal (Hearing impairment with bilateral hearing aid), Facial Symmetry (No asymmetry), Neck Supple, Trachea Midline, No JVD and No Thyromegaly
Respiratory: Normal Excursion and Other (Coarse breath sounds noted)
Cardiac: Regular Rate/Rhythm (Irregular rhythm) and Edema (+1)
Breast: Deferred by me
Abdomen: Soft, Nontender, Nondistended and No Hepatosplenomegaly
Musculoskeletal: No Clubbing, No Cyanosis and Edema (Trace edema)
Skin: No Rash
Neuro: Nonfocal/Grossly Intact and Other (Some plantar neurosensory deficit)
Hematologic/Lymphatic: No Cervical Lymphadenopathy
Psych: Mood/afflect pleasant
Assessment/Plan
-
Acute kidney injury
CKD stage IV with baseline creatinine 1.77
Decompensated congestive heart failure in setting of new onset atrial fibrillation with rapid ventricular response
Hypotension
Diabetes
History of hypertension
PMR history
Dyslipidemia
Obesity
Troponin leak
Plan:
Acute kidney injury:
-Likely prerenal in mediated in setting of hypotension due to decompensated congestive heart failure in setting of atrial fibrillation with rapid ventricular response
-Check fractional excretion of sodium
-Antihypertensives held
-Bladder scan obtained with less than 10 cc of urine
-Need to maximize MAP to greater than 65 with midodrine and/or pressor support to augment renal arterial perfusion pressure
-Accurate I's and O's and daily weight
-Will need eventual diuresis once hemodynamically more stable
-No acute hemodialysis requirement at this
Data Reviewed
-
Radiology: Image Personally Visualized and interpreted (Chest x-ray personally reviewed by myself noted lower lobe opacifications)
Medical Tests (Nuc Med, Echo etc): Image Personally Visualized and interpreted (EKG report reviewed noted atrial fibrillation rhythm with rapid ventricular response)
Labs: Labs Reviewed by me
Old Records: Reviewed (Noted previous creatinine in electronic medical record at 1.77 in May 2023)
Labs
-
Labs:
06/22/23:24
06/22/23:24
WBC 12.2 10^3/uL (4.8-10.8) H 06/22/23:24
RBC 2.83 10^6/uL (4.20-5.40) L 06/22/23:24
Hgb 10.6 g/dL (12.0-16.0) L 06/22/23:24
Hct 32.9 % (37.0-47.0) L 06/22/23:24
Plt Count 129 10^3/uL (130-400) L 06/22/23:24
Sodium 135 mmol/L (135-145) 06/22/23:24
Potassium 4.8 mmol/L (3.5-5.1) 06/22/23:24
Chloride 103 mmol/L (98-107) 06/22/23:24
Carbon Dioxide 24 mmol/L (22-30) 06/22/23:24
BUN 82 mg/dl (7-17) H 06/22/23:24
Creatinine 3.0 mg/dL (0.6-1.0) H 06/22/23 09:24
eGFR 14.59 06/22/23 09:24
Glucose 144 mg/dl (70-99) H 06/22/23 09:24
Calcium 8.9 mg/dl (8.4-10.2) 06/22/23 09:24
Tac-S-Mxsgnovwrys Pept 53063 pg/ml 06/21/23 14:55
Albumin 3.2 g/dl (3.5-5.0) L 06/21/23 14:59
[2023-06-22] MEDS: LASIX 40 MG IV (15:33)
--- NOTE | 2023-06-22 15:46 | PTCARENOTE ---
Dr. Mckinney in seeing patient, aware that patient has not voided today and bladder scan done, lasix 40mg IV given as ordered.
[2023-06-22] MEDS: LIPITOR 80 MG PO (17:12)
[2023-06-22] MEDS: ZETIA 10 MG PO (17:12)
[2023-06-22 17:17] LABS: Glucose - Point of Care 168 mg/dl (70-99)
[2023-06-22] MEDS: NOVOLOG FLEXPEN-LOW RESISTANCE 1 UNITS SC (17:17)
[2023-06-22 20:08] LABS: Urine Sodium 21 mmol/L (30-90)
[2023-06-22 21:27] LABS: Glucose - Point of Care 189 mg/dl (70-99)
--- NOTE | 2023-06-22 21:41 | PTCARENOTE ---
Pt. voided 300 ml mariaa urine in BSC; pending specimen sent. Remains A-fib on the monitor, rate 100's-120's. Pt. does get SOB with activity, exertional wheeze present, pulse ox 100% on 2L O2. Pt. very pleasant, completely oriented.
[2023-06-23] VITALS (12 sets, daily range): BP systolic 91–126; BP diastolic 42–84; PULSE 118–125; O2SAT 99; BMI 34.2
[2023-06-23] MEDS: LOPRESSOR 12.5 MG PO (06:22)
--- NOTE | 2023-06-23 06:34 | PTCARENOTE ---
Able to give all scheduled doses of metoprolol without dropping BP (SBP ranging low 100's - 110's). Continued A-fib on the monitor, HR mostly low 100's with sleep, 120's when OOB to use BSC. Amiodarone gtt infusing as ordered. Pt. voided another
350 ml mariaa urine without difficulty this morning.
[2023-06-23 06:57] LABS: Blood Urea Nitrogen 90 mg/dl (7-17); Calcium 8.9 mg/dl (8.4-10.2); Carbon Dioxide 22 mmol/L (22-30); Chloride 99 mmol/L (98-107); Estimated Creatinine Clearance 12 ml/min; Glucose 169 mg/dl (70-99); Potassium 5.2 mmol/L (3.5-5.1); Sodium 132 mmol/L (135-145); eGFR 13.01
[2023-06-23] MEDS: ELIQUIS PO (08:32)
[2023-06-23] MEDS: NSS (PRESERVATIVE FREE) 10 ML IV ×2 (08:33)
[2023-06-23] MEDS: TYLENOL 650 MG PO ×2 (08:33→19:22)
[2023-06-23] MEDS: ProAmatine 5 MG PO ×3 (08:34→18:02)
[2023-06-23] MEDS: FLUSH (NSS) 1 FLUSH IV (08:36)
[2023-06-23] MEDS: NOVOLOG FLEXPEN-LOW RESISTANCE SC (08:47)
[2023-06-23] MEDS: PROTONIX IV 40 MG IV (08:53)
[2023-06-23] MEDS: PACERONE 400 MG PO ×3 (08:53→22:34)
--- NOTE | 2023-06-23 09:43 | W.PN.HOSP.TC ---
Today's Communication/Plan
-
see bold
Assessment / Plan
Assessment / Plan
88 years old female presented with shortness of breath and weakness and was found to have rapid atrial fibrillation
#Atrial fibrillation with rapid ventricular response.� No history of similar episodes in the past.
Appreciate cardiology input, status post IV heparin/IV cardizem
Currently on amiodarone, and metoprolol tartrate
Consider PUJA/cardioversion pending GI workup of dysphagia versus reflux
Plan to start Eliquis once GI workup completed
# Suspect Acute HFpEF
Continue diuretics as per nephrology
Echocardiogram requested, fluid restriction
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
#Probable cardiorenal syndrome
Creatinine continues to worsen at 3.3 today, was 3, baseline 1.77
Nephrology following
#Dysphagia
Patient was supposed to see Dr. Sweeney on 06/24
Consult SPL, consult GI here
# Hyperkalemia
Hold losartan, low K diet
#Hyponatremia
Likely due to fluid overload, fluid restrict, Lasix as per nephrology
# Type 2 diabetes
# Hypoglycemia
Hypoglycemia resolved
Continue carb controlled diet, sliding scale insulin
# Type II IN secondary to rapid atrial fibrillation
No chest pain
# Hypovolemic shock/hypotension exacerbated by Cardizem drip
Hold losartan
Continue midodrine 5 mg 3 times daily
# Obesity
Affects all aspects of care
# Gastroesophageal reflux disease/history of hiatal hernia
Keep on PPI IV Protonix.
As needed Imodium for diarrhea.� Abdominal examination is benign.
# Hyperlipidemia
# History of polymyalgia rheumatica/insomnia
Continue with Tylenol twice daily.
DVT ppx - SCDs
Full Code
Total time spent to see the patient on the floor, examine the patient, review data and lab results, discuss treatment plan with patient, nursing staff around 51 minutes.
Physical Exam
General: Obese, no acute distress
HEENT: Normocephalic, Atraumatic, EOMI, MMM
Respiratory: Clear to Auscultation bilaterally
Cardiac: Normal S1/S2, tachycardic rate, irregular rhythm
GI: Soft, Nontender, Nondistended, Normal Bowel Sounds
Anticipated Discharge: > 48 hours
Subjective/Interval History
-
Date of Service: June 23, 2023
Patient reports food is getting stuck in her esophagus when eating. Denies palpitations, denies chest pain.
Objective Data
-
Labs:
Laboratory Results
06/23/23
05:55
Sodium 132 L
Potassium 5.2 H
Chloride 99
Carbon Dioxide 22
BUN 90 H
Creatinine 3.3 H
Glucose 169 H
Calcium 8.9
Vital Signs:
Vital Signs
Temp Pulse Resp BP Pulse Ox
98.0 F 123 20 116/68 98
06/23/23 06:17 06/23/23 08:53 06/23/23 06:17 06/23/23 08:53 06/23/23 06:17
I&O
06/22/23 06/23/23 06/24/23
06:59 06:59 06:59
Intake Total 960 / 960 302.8 / 302.8
Output Total 650 / 650
Balance 960 / 960 -347.2 / -347.2
--- NOTE | 2023-06-23 09:56 | PTCARENOTE ---
D/C'd IV amiodarone and started on po as ordered.
--- NOTE | 2023-06-23 10:34 | W.PN.CARDCBS ---
Addendum entered and electronically signed by Danial Streeter MD 06/23/23 11:23:
I saw and examined the patient.
The CRIPPLE CHASER or PA's note was reviewed and I agree with the note.
Comment: General: Well developed, well nourished in NAD.
Neck: Supple, no JVD, HJR, carotids +2 B/L, no bruits bilaterally.
Heart: Non displaced PMI, irregular, no murmurs, No S3, S4, no rubs.
Lungs: Scattered rhonchi
Extremities: No clubbing, cyanosis or edema bilaterally.
Neuro: Grossly nonfocal, awake, alert and oriented x3.
Remains in atrial fibrillation with poor heart rate control
Change amiodarone to p.o.
GI has been consulted and will consider PUJA/cardioversion pending workup of possible dysphagia versus reflux.
Also might consider rate control
Hold Eliquis until GI evaluation has been done
Increase Lopressor to 25 mg p.o. every 6 hours with plans to change to twice daily
Discussed with GI as well as primary service
check echo
Original Note:
Today's Communication / Plan
-
Stopped amiodarone gtt and transitioned to amiodarone 400 mg PO TID
Appreciate help of Hospitalist in consulting GI in case we move forward with PUJA/CV this admission
Eliquis now on hold, last dose 06/22/23 PM. Will restart Eliquis tonight if no GI procedures are planned
Impression / Plan
-
PCP: Ashtyn Newby PA-C
Cardiology: Dr. Herrera
Impression:
Acute HFpEF
Newly diagnosed Afib with RVR
DANIEL with CKD 4
Type 2 diabetes
Hypertension
Hyperlipidemia
Polymyalgia rheumatica
Diabetic neuropathy
Obesity
Dysphagia
Holter monitor August 2020: Normal sinus rhythm average 63 bpm occasional PVCs and PACs with rare short atrial and ventricular runs, 2% PVC burden, 1% PAC burden
Echo 08/13/19: EF 50-55%, normal RV, mildly dilated left atrium, aortic sclerosis
Echo 06/23/23: Study pending
Plan:
-Weight is down 6 lbs from admission after Lasix 40 mg IV x1 on 06/22/23 at 1515. Patient was taking Lasix 40 mg PO daily prior to admission.
-Cre up to 3.3 on 06/23/23 and Nephrology is following.
-Patient with rapid Afib on admission of unclear duration and this was a new diagnosis at time of admission. Initially plan was for rate control with Cardizem gtt, but hypotension proved difficult for optimal HR control so Cardizem gtt stopped and
patient was given Digoxin 125 mcg IV x2 doses of 06/21/23 and then started on an amiodarone gtt 06/22/23. Lopressor 12.5 mg PO q6 hours was ordered 06/22/23 as well.
-Amiodarone gtt converted to amiodarone 400 mg PO TID on 06/23/23 AM
-HRs in the 110-120 range and patient is intermittently hypotensive. Options include ongoing amiodarone PO for rate control or PUJA/CV.
-Patient reports dysphagia and was scheduled to see Dr. Sweeney in the office 06/24/23 at 10. Esophagram ordered by cardiology 06/22/23 was a limited study due to patient mobility and debility, but esophagus was normal in caliber, without significant
focal mucosal abnormality or mass/ulceration, decreased esophageal motility with tertiary contractions and no esophageal obstruction. Appreciate help of Hospitalist attending ordering a formal GI consultation on 06/23/23.
-Due to overall frailty might want to consider rate control alone.
-Midodrine 5 mg TID added 06/22/23 and BPs tolerating low dose Lopressor. Outpatient dose of losartan 100 mg daily is on hold.
-Eliquis 2.5 mg BID started on 06/22/23 in anticipation of possible PUJA/CV 06/23/23, but given above this is deferred and GI has been consulted so will hold Eliquis 06/23/23 AM and considering transitioning back to Heparin gtt while plan is made
HPI: 88-year-old woman who has been short of breath for 1 week following what could have been a gastroenteritis, now with shortness of breath and progressive fatigue over the last month or so.� No prior history of atrial fibrillation.� She presented
to the emergency department with marginal blood pressure, heart rate approximately 140, markedly elevated proBNP and evidence of heart failure with atrial fibrillation and rapid ventricular response.� Heart rate has been difficult to control since
admission on IV diltiazem, she is short of breath, no awareness of tachycardia.� She has dysphagia and was planning to see Dr. Sweeney.
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
Subjective
Date of Service: June 23, 2023
No palpitations
Objective
Labs:
06/22/23 09:24
06/23/23 05:55
Labs
Hgb 10.6 g/dL (12.0-16.0) L 06/22/23 09:24
Hct 32.9 % (37.0-47.0) L 06/22/23 09:24
Plt Count 129 10^3/uL (130-400) L 06/22/23 09:24
APTT Cancelled 06/22/23 11:10
Sodium 132 mmol/L (135-145) L 06/23/23 05:55
Potassium 5.2 mmol/L (3.5-5.1) H 06/23/23 05:55
BUN 90 mg/dl (7-17) H 06/23/23 05:55
Creatinine 3.3 mg/dL (0.6-1.0) H 06/23/23 05:55
Glucose 169 mg/dl (70-99) H 06/23/23 05:55
Troponins
06/21/23 06/21/23 06/21/23
14:55 19:42 22:19
Troponin I 0.231 H* Cancelled 0.353 H* D
06/22/23 06/22/23
02:42 09:24
Troponin I 0.340 H* 0.245 H* D
Vital Signs and I&O:
Vital Signs
Temp Pulse Resp BP Pulse Ox
98.0 F 132 20 116/68 98
06/23/23 06:17 06/23/23 10:00 06/23/23 06:17 06/23/23 08:53 06/23/23 08:30
Vital Signs
Temp Pulse Resp BP Pulse Ox
98.0 F 132 20 116/68 98
06/23/23 06:17 06/23/23 10:00 06/23/23 06:17 06/23/23 08:53 06/23/23 08:30
Intake & Output
06/21/23 06/22/23 06/23/23 06/24/23
06:59 06:59 06:59 06:59
Intake Total 960 / 960 302.8 / 302.8
Output Total 650 / 650
Balance 960 / 960 -347.2 / -347.2
Physical Exam
Physical Exam
GEN: NAD. AAO to person, place and situation
HEENT: EOMI
LUNGS: CTA B/L
CV: Irreg irreg
ABD: +BS
EXT: No edema
NEURO: Gross non-focal
SKIN: No rash
--- NOTE | 2023-06-23 12:27 | CON.GI ---
Addendum entered and electronically signed by Addie Gutierrez MD 06/23/23 16:04:
I saw and examined the patient.
The GROUND SOURCE HEAT PUMP TECHNICIAN or PA's note was reviewed and I agree with the note.
Comment: 88-year-old female with history of diabetes, chronic kidney disease, GERD presenting with shortness of breath, in the ER noted to have rapid atrial fibrillation. Reports having diarrhea last Friday but normal pattern is more for
constipation. She has history of trouble swallowing which has been chronic, mainly with liquids with regurgitation, sometimes solid food also feels like it is going down slow, usually no trouble with pills, no choking or coughing, no abdominal
pain, odynophagia, GERD or vomiting. No blood in the stool or black stool or unintentional weight loss or NSAID use. Upper endoscopy in 2021 showing normal esophagus, no evidence of eosinophilic esophagitis, erythema in the antrum, no H. pylori.
Upper GI study showing normal thoracic esophagus, decreased motility noted but free flow of contrast into the stomach without any obstruction, mucosal abnormality.
Colonoscopy in 2015, random biopsies with mild nonspecific colitis.
Mild anemia noted during this hospital visit without any overt bleeding.
-Dysphagia which seems to be chronic
Upper endoscopy without eosinophilic esophagitis or structural abnormalities
Likely esophageal dysmotility causing trouble swallowing
No contraindication to PUJA at this time
Evaluated by speech who recommended regular solids with thin liquids with precautions. No signs of aspiration noted.
Continue PPI.
Will arrange for outpatient follow-up with Dr. Mixon after discharge.
Will sign off, please call back if needed.
Original Note:
Consultation
-
Date/Time Consultation Requested: 06/23/23 1100
Date/Time Consultation Performed: 05/23/23 1220
Requesting Provider: Lalit Cooley MD
Performing Provider: GINA Don, Addie Gutierrez MD
Reason for Consultation: dysphagia
Medical History
Chief Complaint / HPI
Chief Complaint: dysphagia
History of Present Illness:
Pt is a 88yo with hx NIDDM, PMR, CKD, venous insufficiency, obesity,GERD with onset of shortness of breath with recent diarrhea and vomiting thought to be from hiatal hernia. In ER noted with rapid afib and marginal BP. Pt is scheduled for
possible PUJA cardioversion 06/23 and noted with complaints of dysphagia. She completed esophagram with some limitation of study without focal mucosal abnormality or mass. Some decreased esophageal motility with tertiary contraction without
obstruction. Hx EGD 04/2022 with erythema in antrum, gastric atrophy normal duodenum with neg.
Pt states symptoms worse with liquids. She will eat some thing solid and try to rinse down with liquid and then have regurgitation with liquids. Symptoms have been chronic for some time. She also had diarrhea and constipation. She denies wt
loss, nausea, abdominal pain, or rectal bleeding.
Past Medical History
Past Medical History: Arrhythmias (afib with RVR), CAD, GERD, Hypercholesterolemia, NIDDM, NM, Renal Failure (CKD) and Other (obesity, HH, PMR, insomnia, venous insufficiency)
Social History
Tobacco: Non-Smoker
Alcohol: Occasional (rare)
Drug: None
Living: Alone
Employment: Retired
Family History
Family History: Other (father with colon CA in 50's)
Allergies / Home Medications
Allergy/AdvReac Type Severity Reaction Status Date / Time
No Known Allergies Allergy Verified 09/14/15 09:54
Medication Instructions Recorded
acetaminophen 325 mg tablet 650 mg PO BID Pain 06/21/23
(Tylenol)
aspirin 81 mg tablet,delayed 81 mg PO QPM Blood Clot 06/21/23
release Prevention/Tx
atorvastatin 80 mg tablet (Lipitor) 80 mg PO QPM High Cholesterol 06/21/23
bismuth subsalicylate 262 mg/15 mL 262 mg PO BIDPRN PRN diarrhea 06/21/23
oral suspension (Pepto-Bismol)
calcium carbonate 500 mg-vitamin 1 tab PO BID Supplement 06/21/23
D3 10 mcg (400 unit) tablet
(Calcium 500 + D)
carvedilol 25 mg tablet (Coreg) 25 mg PO BID Heart 06/21/23
Disease/Condition
doxazosin 2 mg tablet 2 mg PO HS Urinary Issue 06/21/23
ezetimibe 10 mg tablet (Zetia) 10 mg PO QPM High Cholesterol 06/21/23
furosemide 40 mg tablet (Lasix) 40 mg PO DAILY Fluid 06/21/23
Retention/Swelling
loperamide 2 mg tablet 2 mg PO Q4HPRN PRN diarrhea 06/21/23
losartan 100 mg tablet 100 mg PO DAILY Blood Pressure 06/21/23
omega 1-bhp-efz-fish oil 1,000 mg 1 cap PO DAILY High Cholesterol 06/21/23
(120 mg-180 mg) capsule (Fish Oil)
therapeutic multivitamin 1 tab PO DAILY Supplement 06/21/23
insulin aspar prot-insulin aspart 15 units SC BID@0800,1700 Diabetes 06/22/23
100 unit/mL (70-30) subcutaneous
pen (Novolog Mix 70-30FlexPen
U-100)
Review of Systems
-
History Source: Patient and Family
Constitutional: Reports No Symptoms
EENT: Reports No Symptoms
Respiratory: Reports Trouble Breathing (with exertion)
Cardiac: Reports No Symptoms
Abdomen/GI: Reports Diarrhea, Constipated and Other (dysphagia worse with liquids )
: Reports No Symptoms
Musculoskeletal: Reports No Symptoms
Skin: Reports No Symptoms
Neurological: Reports No Symptoms
Endocrine: Reports No Symptoms
Hematologic/Lymphatic: Reports No Symptoms
Vital Signs
Temp Pulse Resp BP Pulse Ox
98.6 F 132 18 116/68 99
06/23/23 12:22 06/23/23 10:00 06/23/23 12:22 06/23/23 08:53 06/23/23 12:22
Physical Exam
Exam
General: Well Developed, Well Nourished and No Apparent Distress
HEENT: Normocephalic and Anicteric
Respiratory: Clear
Cardiac: Other (tachy)
GI: Soft, Non Tender and Non Distended
Musculoskeletal: No Clubbing and No Cyanosis
Skin: Warm and Dry
Neuro: Awake, Alert and AO x 3
Psych: Calm
Results
WBC 12.2 10^3/uL (4.8-10.8) H 06/22/23 09:24
Hgb 10.6 g/dL (12.0-16.0) L 06/22/23 09:24
Hct 32.9 % (37.0-47.0) L 06/22/23 09:24
MCV 116.3 fL (81.0-99.0) H 06/22/23 09:24
Plt Count 129 10^3/uL (130-400) L 06/22/23 09:24
Absolute Neuts (auto) 7.6 10^3/uL (1.4-6.5) H 06/21/23 15:38
APTT Cancelled 06/22/23 11:10
Sodium 132 mmol/L (135-145) L 06/23/23 05:55
Potassium 5.2 mmol/L (3.5-5.1) H 06/23/23 05:55
Chloride 99 mmol/L (98-107) 06/23/23 05:55
Carbon Dioxide 22 mmol/L (22-30) 06/23/23 05:55
BUN 90 mg/dl (7-17) H 06/23/23 05:55
Creatinine 3.3 mg/dL (0.6-1.0) H 06/23/23 05:55
Calcium 8.9 mg/dl (8.4-10.2) 06/23/23 05:55
Total Bilirubin 0.7 mg/dl (0.2-1.3) 06/21/23 14:59
AST 35 U/L (14-36) 06/21/23 14:59
ALT 31 U/L (0-35) 06/21/23 14:59
Alkaline Phosphatase 60 U/L (38-126) 06/21/23 14:59
Diagnostic Image Results:
06/22/23 esophagram
Limited study demonstrating the esophagus to be normal in caliber, without significant focal mucosal abnormality or mass/ulceration.
Decreased esophageal motility with tertiary contractions. No esophageal obstruction.
06/21/23 CXR
There is persistent bibasilar interstitial prominence, small bilateral pleural effusions, and findings most consistent with CHF in a patient with cardiomegaly.
No radiopaque foreign body
Prior GI Procedures:
EGD: �04/2022 mixon� � � � - Normal esophagus.
�� � � � � � � � � � � - Erythematous mucosa in the antrum. Biopsied.
�� � � � � � � � � � � - Gastric mucosal atrophy. Biopsied.
�� � � � � � � � � � � - Normal examined duodenum.
�� � � � � � � � � � � - Biopsies were taken with a cold forceps for
�� � � � � � � � � � � evaluation of eosinophilic esophagitis.
Colonoscopy: mixon � - One diminutive polyp in the cecum. Resected and
�� � � � � � � � � � retrieved.
�� � � � � � � � � � - Biopsies were taken with a cold forceps from the
�� � � � � � � � � � ascending colon, descending colon and rectum for
�� � � � � � � � � � evaluation of microscopic colitis.
Assessment / Plan
-
Pt is a 88yo with hx NIDDM, PMR, CKD, venous insufficiency, obesity, GERD with onset of shortness of breath with recent diarrhea and vomiting thought to be from hiatal hernia. In ER noted with rapid afib and marginal BP. Pt is scheduled for
possible PUJA cardioversion 06/23 and noted with complaints of chronic dysphagia. She completed esophagram with some limitation of study without focal mucosal abnormality or mass. Some decreased esophageal motility with tertiary contraction without
obstruction. Hx EGD 04/2022 with erythema in antrum, gastric atrophy normal duodenum with neg.
-dysphagia
-esophagram with decreased motility with tertiary contractions
-rapid Afib on admission
-acute CHF
-hypotension on Midodrine
-chronic diarrhea and constipation
-leukocytosis
-macrocytosis
-mild thrombocytopenia
-acute on chronic renal disease
other medical problems:
-NIDDM
-obesity
-GERD
-venous insufficiency
-PMR
PLAN:
etiology of dysphagia related to esophageal dysmotility vs other
will review esophagram 06/[address] Gutierrez for clearance for PUJA but no noted mucosal abnormality or mass
EGD 04/2022 stable
discussed small bites and staying upright after meals
pt was given 1 dose Eliquis 06/22 with new afib then on hold
cont PPI daily
monitor diarrhea and constipation has been chronic issues consider adding fiber supplement
trend cbc with leukocytosis and mild thrombocytopenia
renal following with worsening creat
-
-
Thank you for consultation and allowing me to participate in the patient's care. Please call the customer care consultant GI physician during the after hours with any questions or concerns.
[2023-06-23 12:40] LABS: Glucose - Point of Care 310 mg/dl (70-99)
[2023-06-23] MEDS: NOVOLOG FLEXPEN-LOW RESISTANCE 4 UNITS SC (12:40)
[2023-06-23] MEDS: LOPRESSOR 25 MG PO ×3 (12:44→23:49)
--- NOTE | 2023-06-23 14:08 | PTCARENOTE ---
Echo completed at bedside.
--- NOTE | 2023-06-23 14:16 | CM ---
priced shabbir with pts perscript plan. her first month copay is $ 333.81- this includes her deductible--after that her co-pay is $146.31 this is a teir 3 drug in her plan. pt is agreeable to this cost.
--- NOTE | 2023-06-23 14:18 | CM ---
spoke to pt in room, she is prev indep, lives alone in a mobile home with 5 steps to enter. she has a cane she uses and a walker to use at home if needed. she denies any dc planning needs. plan is for dc to home when medicably stable
--- NOTE | 2023-06-23 15:07 | PTOTSP ---
Speech Therapy Swallowing Assessment
Oral/pharyngeal swallow deemed within functional limits without overt signs of aspiration. Patient reports symptoms consistent with findings of dysmotility on recent esophagram including sternal retention, and occasional burping with regurgitation
to mouth but not observed during assessment today.
Recommend
1. Regular solids and Thin Liquids
2. Avoid overly dry/dense solids
3. Alternate sip of liquid in between every 2-3 bites of solids.
4. Take rest break for 1-2 minutes when sensation of sternal retention.
5. Smaller, more frequent meals.
6. Reflux precautions.
7. Remain upright for at least 30 minutes after meals.
[2023-06-23] MEDS: NOVOLOG FLEXPEN-LOW RESISTANCE 2 UNITS SC (17:43)
[2023-06-23 17:44] LABS: Glucose - Point of Care 241 mg/dl (70-99)
[2023-06-23] MEDS: LIPITOR 80 MG PO (17:45)
[2023-06-23] MEDS: ZETIA 10 MG PO (17:45)
--- NOTE | 2023-06-23 19:22 | W.PN.NEPH.PH ---
Today's Communication / Plan
-
- lasix IV 20mg once
- continue to trend BMPs
Assessment/Plan
-
Acute kidney injury
CKD stage IV with baseline creatinine 1.77
Decompensated congestive heart failure in setting of new onset atrial fibrillation with rapid ventricular response
Hypotension
Diabetes
History of hypertension
PMR history
Dyslipidemia
Obesity
Troponin leak
Plan:
Acute kidney injury:
-Likely prerenal in mediated in setting of hypotension due to decompensated congestive heart failure in setting of atrial fibrillation with rapid ventricular response
-FeNa <1% --> prerenal disease
-Antihypertensives held
-Bladder scan obtained with less than 10 cc of urine
-Need to maximize MAP to greater than 65 with midodrine and/or pressor support to augment renal arterial perfusion pressure
-Accurate I's and O's and daily weight
-Plan for diuresis with 20 IV Lasix today
-No acute hemodialysis requirement at this
-
-
Date of Service: June 23, 2023
CC / HPI / ROS
-
Chief Complaint:
DANIEL
History of Present Illness:
DANIEL on CKD (bl Cr 1.7). Cr elevated 3.3 today
Afib
Dysphagia
Review of Systems:
UOP 650cc
lasix 20mg IV today
Labs
-
Labs:
WBC 12.2 10^3/uL (4.8-10.8) H 06/22/23 09:24
RBC 2.83 10^6/uL (4.20-5.40) L 06/22/23 09:24
Hgb 10.6 g/dL (12.0-16.0) L 06/22/23 09:24
Hct 32.9 % (37.0-47.0) L 06/22/23 09:24
Plt Count 129 10^3/uL (130-400) L 06/22/23 09:24
Sodium 132 mmol/L (135-145) L 06/23/23 05:55
Potassium 5.2 mmol/L (3.5-5.1) H 06/23/23 05:55
Chloride 99 mmol/L (98-107) 06/23/23 05:55
Carbon Dioxide 22 mmol/L (22-30) 06/23/23 05:55
BUN 90 mg/dl (7-17) H 06/23/23 05:55
Creatinine 3.3 mg/dL (0.6-1.0) H 06/23/23 05:55
eGFR 13.01 06/23/23 05:55
Glucose 169 mg/dl (70-99) H 06/23/23 05:55
Calcium 8.9 mg/dl (8.4-10.2) 06/23/23 05:55
Bop-A-Eqqavxgpxlm Pept 30927 pg/ml 06/21/23 14:55
Albumin 3.2 g/dl (3.5-5.0) L 06/21/23 14:59
Physical Exam
-
Vital Signs:
Vital Signs
Temp Pulse Resp BP Pulse Ox
98.2 F 112 18 91/66 99
06/23/23 15:26 06/23/23 18:02 06/23/23 15:26 06/23/23 18:02 06/23/23 15:26
Cardiovascular:: Irregular rate and rhythm
Respiratory:: Bilateral: CTA
Lung Excursion:: Normal
Abdomen:: Nontender and Soft
Bowel Sounds:: Normal
Extremity Edema:: +1: Bilateral:
Suarez Catheter: No
[2023-06-23] MEDS: LASIX 20 MG IV (19:48)
[2023-06-23 22:39] LABS: Glucose - Point of Care 137 mg/dl (70-99)
[2023-06-24] VITALS (9 sets, daily range): BP systolic 107–128; BP diastolic 67–87; O2SAT 98; BMI 35.0; BMI 34.9
--- NOTE | 2023-06-24 02:41 | PTCARENOTE ---
Patient ambulating in room and using RW, and appears RICK. Patient w/ an audible exp wheeze after ambulating back from the bathroom. Heaven FUENTES notified, and orders obtained. Sating 92% RA, applied 2L of O2 for comfort. Tele remains Afib w/ HR
in the 100-120's. Denies any chest pain. Does c/o acid reflux, Heaven FUENTES notified. Patient aware of POC,call mosqueda within reach.
[2023-06-24] MEDS: XOPENEX 1.25 MG INHALANT SOLUTION INH (02:46)
[2023-06-24] MEDS: TUMS EX (EXTRA STRENGTH) CHEWABLE 2 TABLET PO ×2 (02:59→22:28)
[2023-06-24 03:07] LABS: Hematocrit 31.7 % (37.0-47.0); Hemoglobin 10.7 g/dL (12.0-16.0); Mean Corp Hgb Conc. 33.8 g/dL (33.0-37.0); Mean Corpuscular Hgb 37.9 pg (27.0-31.0); Mean Corpuscular Volume 112.4 fL (81.0-99.0); Mean Platelet Volume 12.1 fL (7.4-10.4); Platelet Count 141 10^3/uL (130-400); Red Blood Cell Count 2.82 10^6/uL (4.20-5.40); Red Cell Dist. Width 15.7 % (11.5-14.5); White Blood Cell Count 10.6 10^3/uL (4.8-10.8)
[2023-06-24 03:33] LABS: Blood Urea Nitrogen 86 mg/dl (7-17); Calcium 8.5 mg/dl (8.4-10.2); Carbon Dioxide 23 mmol/L (22-30); Chloride 104 mmol/L (98-107); Estimated Creatinine Clearance 12 ml/min; Glucose 141 mg/dl (70-99); Potassium 5.2 mmol/L (3.5-5.1); Sodium 131 mmol/L (135-145); eGFR 13.01
[2023-06-24] MEDS: LOPRESSOR 25 MG PO ×2 (06:10→13:14)
[2023-06-24 07:20] LABS: Glucose - Point of Care 150 mg/dl (70-99)
[2023-06-24] MEDS: TYLENOL 650 MG PO ×2 (08:30→19:24)
[2023-06-24] MEDS: PACERONE 400 MG PO ×3 (08:31→22:27)
[2023-06-24] MEDS: NOVOLOG FLEXPEN-LOW RESISTANCE 1 UNITS SC ×3 (08:32→18:37)
[2023-06-24] MEDS: ELIQUIS 2.5 MG PO ×2 (08:33→19:24)
[2023-06-24] MEDS: PROTONIX IV 40 MG IV (08:34)
[2023-06-24] MEDS: ProAmatine 5 MG PO ×3 (08:37→17:35)
--- NOTE | 2023-06-24 09:58 | W.PN.CARDCBS ---
Addendum entered and electronically signed by Danial Streeter MD 06/24/23 13:38:
I saw and examined the patient.
The MAID CLEANING COOKING or PA's note was reviewed and I agree with the note.
Comment: General: Well developed, well nourished in NAD.
Neck: Supple, no JVD, HJR, carotids +2 B/L, no bruits bilaterally.
Heart: Non displaced PMI, irregular, no murmurs, No S3, S4, no rubs.
Lungs: Scattered rhonchi
Abdomen: Normal bowel sounds, soft, non-tender, non-distended.
Extremities: No clubbing, cyanosis or edema bilaterally.
Neuro: Grossly nonfocal, awake, alert and oriented x3.
Remains in atrial fibrillation with relatively poor heart rate control. EF 25 to 30%. Will change Lopressor to Coreg. No CRUZITO/ARB with renal insufficiency. No Aldactone with renal insufficiency.. Nephrology managing diuretics and creatinine
remains elevated but stable at 3.3. Tentative plan is for PUJA/cardioversion on 06/25. GI gave clearance for PUJA. Will update son.
Original Note:
Today's Communication / Plan
-
Possible PUJA/CV in AM
Await call back from her son to review
Weight is up despite ongoing IV diuresis, nephrology following
Impression / Plan
-
PCP: Ashtyn Newby PA-C
Cardiology: Dr. Herrera
Impression:
Acute HFpEF
Newly diagnosed Afib with RVR
DANIEL with CKD 4
Type 2 diabetes
Hypertension
Hyperlipidemia
Polymyalgia rheumatica
Diabetic neuropathy
Obesity
Dysphagia
Holter monitor August 2020: Normal sinus rhythm average 63 bpm occasional PVCs and PACs with rare short atrial and ventricular runs, 2% PVC burden, 1% PAC burden
Echo 08/13/19: EF 50-55%, normal RV, mildly dilated left atrium, aortic sclerosis
Echo 06/23/23: EF 25-30%, global hypokinesis, biatrial enlargement, mild MR, mild TR, small pericardial effusion
Plan:
-Weight is up 5 lbs overnight despite Lasix 20 mg IV x1 given 06/23/23 at 1923. Patient also received Lasix 40 mg IV x1 on 06/22/23. Patient was taking Lasix 40 mg PO daily prior to admission. Will ask nursing to weigh again.
-Nephrology is following and Cre is stable at 3.3.
-EF down to 25-30% by echo. Reviewed echo with patient on 06/24/23
-CM might be related to tachyarrhythmia. Talked with patient about new rapid Afib on admission of unclear duration. Talked about rate control vs rhythm control. Rate control has been difficult due to hypotension and initially managed with Cardizem
gtt, but stopped due to hypotension. Patient given Digoxin 125 mcg IV x2 doses of 06/21/23 and then started on an amiodarone gtt 06/22/23. Lopressor 12.5 mg PO q6 hours was ordered 06/22/23 as well. Then started on amiodarone gtt and finally converted
to amiodarone 400 mg PO TID on 06/23/23 AM
-Talked with patient about possibility of a PUJA/CV and explained procedure. Then called patient's son, Uzair, and left a message asking for a call back to review.
-Appreciate help of GI team in clearing patient for PUJA.
-Midodrine 5 mg TID added 06/22/23 and BPs tolerating low dose Lopressor. Outpatient dose of losartan 100 mg daily is on hold.
-New to Eliquis 2.5 mg BID this admission.
HPI: 88-year-old woman who has been short of breath for 1 week following what could have been a gastroenteritis, now with shortness of breath and progressive fatigue over the last month or so.� No prior history of atrial fibrillation.� She presented
to the emergency department with marginal blood pressure, heart rate approximately 140, markedly elevated proBNP and evidence of heart failure with atrial fibrillation and rapid ventricular response.� Heart rate has been difficult to control since
admission on IV diltiazem, she is short of breath, no awareness of tachycardia.� She has dysphagia and was planning to see Dr. Sweeney.
Progress Note - Marketing Executive
Subjective
Date of Service: June 24, 2023
She says she is tired
Objective
Labs:
06/24/23 02:55
06/24/23 02:55
Labs
Hgb 10.7 g/dL (12.0-16.0) L 06/24/23 02:55
Hct 31.7 % (37.0-47.0) L 06/24/23 02:55
Plt Count 141 10^3/uL (130-400) 06/24/23 02:55
APTT Cancelled 06/22/23 11:10
Sodium 131 mmol/L (135-145) L 06/24/23 02:55
Potassium 5.2 mmol/L (3.5-5.1) H 06/24/23 02:55
BUN 86 mg/dl (7-17) H 06/24/23 02:55
Creatinine 3.3 mg/dL (0.6-1.0) H 06/24/23 02:55
Glucose 141 mg/dl (70-99) H 06/24/23 02:55
Troponins
06/21/23 06/21/23 06/21/23
14:55 19:42 22:19
Troponin I 0.231 H* Cancelled 0.353 H* D
06/22/23 06/22/23
02:42 09:24
Troponin I 0.340 H* 0.245 H* D
Vital Signs and I&O:
Vital Signs
Temp Pulse Resp BP Pulse Ox
97.8 F 112 18 124/78 94
06/24/23 07:15 06/24/23 08:00 06/24/23 07:15 06/24/23 07:17 06/24/23 08:00
Vital Signs
Temp Pulse Resp BP Pulse Ox
97.8 F 112 18 124/78 94
06/24/23 07:15 06/24/23 08:00 06/24/23 07:15 06/24/23 07:17 06/24/23 08:00
Intake & Output
06/22/23 06/23/23 06/24/23 06/25/23
06:59 06:59 06:59 06:59
Intake Total 960 / 960 302.8 / 302.8 240 / 240
Output Total 650 / 650 350 / 350
Balance 960 / 960 -347.2 / -347.2 -110 / -110
Physical Exam
Physical Exam
GEN: NAD. AAO to person, place and situation
HEENT: EOMI
LUNGS: CTA B/L
CV: Irreg irreg
ABD: +BS
EXT: No edema
NEURO: Gross non-focal
SKIN: No rash
--- NOTE | 2023-06-24 10:32 | W.PN.HOSP.TC ---
Today's Communication/Plan
-
see bold
Assessment / Plan
Assessment / Plan
88 years old female presented with shortness of breath and weakness and was found to have rapid atrial fibrillation
#Atrial fibrillation with rapid ventricular response.� No history of similar episodes in the past.
Appreciate cardiology input, status post IV heparin/IV cardizem
Currently on eliquis, amiodarone, and coreg
For possible PUJA cardioversion tomorrow
# Suspect Acute HFpEF
Continue diuretics as per nephrology
Echocardiogram reviewed, continue fluid restriction
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
#Probable cardiorenal syndrome
Creatinine at 3.3 today, was 3.3, was 3, baseline 1.77
Nephrology following
#Chronic dysphagia
Patient was supposed to see Dr. Sweeney on 06/24
Appreciate GI input, EGD done in 2021 shows normal esophagus, no evidence of eosinophilic esophagitis, erythema in the antrum, no H. pylori
GI suspects esophageal dysmotility
No contraindications for PUJA cardioversion, follow-up with Dr. Sweeney in the office
# Hyperkalemia
Hold losartan, low K diet
#Hyponatremia
Likely due to fluid overload, fluid restrict, Lasix as per nephrology
# Type 2 diabetes
# Hypoglycemia
Hypoglycemia resolved
Continue carb controlled diet, sliding scale insulin
# Type II VT secondary to rapid atrial fibrillation
No chest pain
# Hypovolemic shock/hypotension exacerbated by Cardizem drip
Hold losartan
Continue midodrine 5 mg 3 times daily
# Obesity
Affects all aspects of care
# Gastroesophageal reflux disease/history of hiatal hernia
IV Protonix, as needed Imodium for diarrhea
# Hyperlipidemia
# History of polymyalgia rheumatica/insomnia
Continue with Tylenol twice daily
DVT ppx - eliquis
Full Code
Total time spent to see the patient on the floor, examine the patient, review data and lab results, discuss treatment plan with patient, nursing staff around 51 minutes.
Physical Exam
General: Obese, no acute distress
HEENT: Normocephalic, Atraumatic, EOMI, MMM
Respiratory: Clear to Auscultation bilaterally
Cardiac: Normal S1/S2, tachycardic rate, irregular rhythm
GI: Soft, Nontender, Nondistended, Normal Bowel Sounds
Anticipated Discharge: > 48 hours
Subjective/Interval History
-
Date of Service: June 24, 2023
Denies palpitations. Continues to have dyspnea with activity.
Objective Data
-
Labs:
Laboratory Results
06/24/23
02:55
WBC 10.6
Hgb 10.7 L
Hct 31.7 L
Plt Count 141
Sodium 131 L
Potassium 5.2 H
Chloride 104
Carbon Dioxide 23
BUN 86 H
Creatinine 3.3 H
Glucose 141 H
Calcium 8.5
Vital Signs:
Vital Signs
Temp Pulse Resp BP Pulse Ox
97.8 F 112 18 124/78 94
06/24/23 07:15 06/24/23 08:00 06/24/23 07:15 06/24/23 07:17 06/24/23 08:00
I&O
06/23/23 06/24/23 06/25/23
06:59 06:59 06:59
Intake Total 302.8 / 302.8 240 / 240
Output Total 650 / 650 350 / 350
Balance -347.2 / -347.2 -110 / -110
[2023-06-24 11:35] LABS: Glucose - Point of Care 158 mg/dl (70-99)
--- NOTE | 2023-06-24 14:12 | W.PN.NEPH.PH ---
Today's Communication / Plan
-
- hold diuresis
- CTM
Assessment/Plan
-
Acute kidney injury
CKD stage IV with baseline creatinine 1.77
Decompensated congestive heart failure in setting of new onset atrial fibrillation with rapid ventricular response
Hypotension
Diabetes
History of hypertension
PMR history
Dyslipidemia
Obesity
Troponin leak
Plan:
Acute kidney injury:
-Likely prerenal in mediated in setting of hypotension due to decompensated congestive heart failure in setting of atrial fibrillation with rapid ventricular response
-FeNa <1% --> prerenal disease
-Antihypertensives held
-Bladder scan obtained with less than 10 cc of urine
-Need to maximize MAP to greater than 65 with midodrine and/or pressor support to augment renal arterial perfusion pressure
-Accurate I's and O's and daily weight
-hold further diuresis at this time
-No acute hemodialysis requirement at this
-
-
Date of Service: June 24, 2023
CC / HPI / ROS
-
Chief Complaint:
DANIEL
History of Present Illness:
DANIEL on CKD (bl Cr 1.7). Cr elevated 3.3 today
Afib
Dysphagia
Review of Systems:
UOP 350cc
little respons eto lasix, hold off on further diuretics today
Labs
-
Labs:
WBC 10.6 10^3/uL (4.8-10.8) 06/24/23 02:55
RBC 2.82 10^6/uL (4.20-5.40) L 06/24/23 02:55
Hgb 10.7 g/dL (12.0-16.0) L 06/24/23 02:55
Hct 31.7 % (37.0-47.0) L 06/24/23 02:55
Plt Count 141 10^3/uL (130-400) 06/24/23 02:55
Sodium 131 mmol/L (135-145) L 06/24/23 02:55
Potassium 5.2 mmol/L (3.5-5.1) H 06/24/23 02:55
Chloride 104 mmol/L (98-107) 06/24/23 02:55
Carbon Dioxide 23 mmol/L (22-30) 06/24/23 02:55
BUN 86 mg/dl (7-17) H 06/24/23 02:55
Creatinine 3.3 mg/dL (0.6-1.0) H 06/24/23 02:55
eGFR 13.01 06/24/23 02:55
Glucose 141 mg/dl (70-99) H 06/24/23 02:55
Calcium 8.5 mg/dl (8.4-10.2) 06/24/23 02:55
Tna-Q-Dskeggvecje Pept 38937 pg/ml 06/21/23 14:55
Albumin 3.2 g/dl (3.5-5.0) L 06/21/23 14:59
Physical Exam
-
Vital Signs:
Vital Signs
Temp Pulse Resp BP Pulse Ox
98.4 F 125 16 117/87 97
06/24/23 11:29 06/24/23 13:00 06/24/23 11:29 06/24/23 11:31 06/24/23 11:29
Cardiovascular:: Regular rate and rhythm
Respiratory:: Bilateral: Coarse
Lung Excursion:: Normal
Abdomen:: Nontender and Soft
Bowel Sounds:: Normal
Extremity Edema:: None: Bilateral:
Suarez Catheter: No
[2023-06-24] MEDS: ZETIA 10 MG PO (17:35)
[2023-06-24] MEDS: LIPITOR 80 MG PO (17:35)
[2023-06-24 18:41] LABS: Glucose - Point of Care 157 mg/dl (70-99)
[2023-06-24] MEDS: COREG 12.5 MG PO (19:24)
[2023-06-24 22:31] LABS: Glucose - Point of Care 208 mg/dl (70-99)
--- NOTE | 2023-06-24 22:36 | PTCARENOTE ---
Tele remains Afib. VSS, and sating 94-95% RA. Denies any chest pain. Occasional RICK when ambulating. Patient aware of NPO status at midnight for PUJA/ECHO tomorrow. Call mosqueda in reach.
[2023-06-25] VITALS (12 sets, daily range): BP systolic 92–147; BP diastolic 46–97; PULSE 52–60; O2SAT 95–96; BMI 34.8
[2023-06-25 05:02] LABS: Hematocrit 32.6 % (37.0-47.0); Hemoglobin 10.8 g/dL (12.0-16.0); Mean Corp Hgb Conc. 33.1 g/dL (33.0-37.0); Mean Corpuscular Hgb 36.9 pg (27.0-31.0); Mean Corpuscular Volume 111.3 fL (81.0-99.0); Mean Platelet Volume 12.2 fL (7.4-10.4); Platelet Count 152 10^3/uL (130-400); Red Blood Cell Count 2.93 10^6/uL (4.20-5.40); Red Cell Dist. Width 15.6 % (11.5-14.5); White Blood Cell Count 8.6 10^3/uL (4.8-10.8)
[2023-06-25 05:32] LABS: Blood Urea Nitrogen 86 mg/dl (7-17); Calcium 9.2 mg/dl (8.4-10.2); Carbon Dioxide 21 mmol/L (22-30); Chloride 103 mmol/L (98-107); Estimated Creatinine Clearance 13 ml/min; Glucose 165 mg/dl (70-99); Potassium 4.7 mmol/L (3.5-5.1); Sodium 133 mmol/L (135-145); eGFR 14.59
[2023-06-25 07:48] LABS: Glucose - Point of Care 164 mg/dl (70-99)
[2023-06-25] MEDS: TYLENOL 650 MG PO ×2 (08:30→20:04)
[2023-06-25] MEDS: ProAmatine 5 MG PO ×3 (08:30→20:04)
[2023-06-25] MEDS: COREG 12.5 MG PO (08:30)
[2023-06-25] MEDS: PACERONE 400 MG PO ×3 (08:31→22:48)
[2023-06-25] MEDS: ELIQUIS 2.5 MG PO ×2 (08:31→20:04)
[2023-06-25] MEDS: NSS (PRESERVATIVE FREE) 10 ML IV (08:32)
[2023-06-25] MEDS: NOVOLOG FLEXPEN-LOW RESISTANCE 1 UNITS SC ×3 (08:40→18:28)
[2023-06-25] MEDS: PROTONIX IV 40 MG IV (08:44)
--- NOTE | 2023-06-25 09:02 | W.PN.NEPH.PH ---
Today's Communication / Plan
-
lasix 40mg IV
Assessment/Plan
-
Acute kidney injury
CKD stage IV with baseline creatinine 1.77
Decompensated congestive heart failure in setting of new onset atrial fibrillation with rapid ventricular response
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
Hypotension
Diabetes
History of hypertension
PMR history
Dyslipidemia
Obesity
Troponin leak
Plan:
Acute kidney injury:
-Creatinine with modest improvement to 3, urine output around 600 cc, weight is unchanged
-Likely prerenal in mediated in setting of hypotension due to decompensated congestive heart failure in setting of atrial fibrillation with rapid ventricular response
-FeNa <1% --> prerenal disease
-Antihypertensives held, now hemodynamically stable
-For cardioversion today in setting of A-fib
-Accurate I's and O's and daily weight
-lasix 40mg IV after CV
-
-
Date of Service: June 25, 2023
CC / HPI / ROS
-
Chief Complaint:
DANIEL
History of Present Illness:
DANIEL on CKD (bl Cr 1.7). Cr improving to 3
Afib but hemodynamically
Review of Systems:
UOP around 600 cc
No chest pain
Weight is unchanged
Dysphagia
Labs
-
Labs:
WBC 8.6 10^3/uL (4.8-10.8) 06/25/23 04:44
RBC 2.93 10^6/uL (4.20-5.40) L 06/25/23 04:44
Hgb 10.8 g/dL (12.0-16.0) L 06/25/23 04:44
Hct 32.6 % (37.0-47.0) L 06/25/23 04:44
Plt Count 152 10^3/uL (130-400) 06/25/23 04:44
Sodium 133 mmol/L (135-145) L 06/25/23 04:44
Potassium 4.7 mmol/L (3.5-5.1) 06/25/23 04:44
Chloride 103 mmol/L (98-107) 06/25/23 04:44
Carbon Dioxide 21 mmol/L (22-30) L 06/25/23 04:44
BUN 86 mg/dl (7-17) H 06/25/23 04:44
Creatinine 3.0 mg/dL (0.6-1.0) H 06/25/23 04:44
eGFR 14.59 06/25/23 04:44
Glucose 165 mg/dl (70-99) H 06/25/23 04:44
Calcium 9.2 mg/dl (8.4-10.2) 06/25/23 04:44
Rgc-D-Fbybucwwzvb Pept 65376 pg/ml 06/21/23 14:55
Albumin 3.2 g/dl (3.5-5.0) L 06/21/23 14:59
Physical Exam
-
Vital Signs:
Vital Signs
Temp Pulse Resp BP Pulse Ox
97.9 F 123 16 146/97 96
06/25/23 07:45 06/25/23 07:45 06/25/23 07:45 06/25/23 04:38 06/25/23 07:45
Cardiovascular:: Irregular rate and rhythm
Lung Excursion:: Normal
Abdomen:: Nontender and Soft
Bowel Sounds:: Normal
Extremity Edema:: +1: Bilateral:
Suarez Catheter: No
--- NOTE | 2023-06-25 09:36 | W.PN.CARDCBS ---
Addendum entered and electronically signed by Geoffrey Kate MD 06/25/23 12:48:
I saw and examined the patient.
The Hip Hop Performers's note was reviewed and I agree with the note.
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
She underwent PUJA/DCCV this morning with successful muslim of normal sinus rhythm
Post procedure she has been bradycardic with heart rate into the 40s, plan to decrease Coreg dose to 3.125
Would continue amiodarone load with 400 mg 3 times daily and monitor heart rate
Continue Eliquis for cardioembolic prophylaxis
Appreciate nephrology input regarding diuretics in the setting of CKD 4
Original Note:
Today's Communication / Plan
-
PUJA/CV today
Lasix 40 mg IV after PUJA/CV
Cont amiodarone, has received a 2.4 gram load as of 06/25/23
Impression / Plan
-
PCP: Ashtyn Newby PA-C
Cardiology: Dr. Herrera
Impression:
Acute HFpEF
Newly diagnosed Afib with RVR
DANIEL with CKD 4
Type 2 diabetes
Hypertension
Hyperlipidemia
Polymyalgia rheumatica
Diabetic neuropathy
Obesity
Dysphagia
Holter monitor August 2020: Normal sinus rhythm average 63 bpm occasional PVCs and PACs with rare short atrial and ventricular runs, 2% PVC burden, 1% PAC burden
Echo 08/13/19: EF 50-55%, normal RV, mildly dilated left atrium, aortic sclerosis
Echo 06/23/23: EF 25-30%, global hypokinesis, biatrial enlargement, mild MR, mild TR, small pericardial effusion
Plan:
-Patient is scheduled for a PUJA/CV 06/25/23. Previously cleared for PUJA by GI. Reviewed procedure with patient on 06/24/23 and answered patient's questions. Called patient's son, Uzair, to review and he did not answer so left a detailed message and
asked for a call back.
-Remains volume overloaded. Nephrology managing IV diuretics due to CKD 4 and plan is for Lasix 40 mg IV after PUJA/CV 06/25/23.
-Cre up to 3.3 on 06/24/23, but improved to 3.0 on 06/25/23.
-Patient was taking Lasix 40 mg PO daily prior to admission.
-EF down to 25-30% by echo. Reviewed echo with patient on 06/24/23
-CM might be related to tachyarrhythmia.Rate control has been difficult due to hypotension and initially managed with Cardizem gtt, but stopped due to hypotension. Patient given Digoxin 125 mcg IV x2 doses of 06/21/23 and then started on an
amiodarone gtt 06/22/23. Lopressor 12.5 mg PO q6 hours was ordered 06/22/23 as well. Then started on amiodarone gtt and finally converted to amiodarone 400 mg PO TID on 06/23/23 AM. Patient has received a 2.4 gram load as of 06/25/23 AM.
-Midodrine 5 mg TID added 06/22/23 and BPs tolerating low dose Lopressor. Outpatient dose of losartan 100 mg daily is on hold.
-New to Eliquis 2.5 mg BID this admission and Hgb has been stable.
HPI: 88-year-old woman who has been short of breath for 1 week following what could have been a gastroenteritis, now with shortness of breath and progressive fatigue over the last month or so.� No prior history of atrial fibrillation.� She presented
to the emergency department with marginal blood pressure, heart rate approximately 140, markedly elevated proBNP and evidence of heart failure with atrial fibrillation and rapid ventricular response.� Heart rate has been difficult to control since
admission on IV diltiazem, she is short of breath, no awareness of tachycardia.� She has dysphagia and was planning to see Dr. Sweeney.
Progress Note - Director Of Customer Service
Subjective
Date of Service: June 25, 2023
She feels well and recalls that she is having a CV today
Objective
Labs:
06/25/23 04:44
06/25/23 04:44
Labs
Hgb 10.8 g/dL (12.0-16.0) L 06/25/23 04:44
Hct 32.6 % (37.0-47.0) L 06/25/23 04:44
Plt Count 152 10^3/uL (130-400) 06/25/23 04:44
APTT Cancelled 06/22/23 11:10
Sodium 133 mmol/L (135-145) L 06/25/23 04:44
Potassium 4.7 mmol/L (3.5-5.1) 06/25/23 04:44
BUN 86 mg/dl (7-17) H 06/25/23 04:44
Creatinine 3.0 mg/dL (0.6-1.0) H 06/25/23 04:44
Glucose 165 mg/dl (70-99) H 06/25/23 04:44
Troponins
06/22/23
09:24
Troponin I 0.245 H* D
Vital Signs and I&O:
Vital Signs
Temp Pulse Resp BP Pulse Ox
97.9 F 125 16 126/79 96
06/25/23 07:45 06/25/23 09:00 06/25/23 07:45 06/25/23 07:45 06/25/23 07:45
Vital Signs
Temp Pulse Resp BP Pulse Ox
97.9 F 125 16 126/79 96
06/25/23 07:45 06/25/23 09:00 06/25/23 07:45 06/25/23 07:45 06/25/23 07:45
Intake & Output
06/23/23 06/24/23 06/25/23 06/26/23
06:59 06:59 06:59 06:59
Intake Total 302.8 / 302.8 240 / 240 240 / 240
Output Total 650 / 650 350 / 350 600 / 600
Balance -347.2 / -347.2 -110 / -110 -360 / -360
Physical Exam
Physical Exam
GEN: NAD. AAO to person, place and situation
HEENT: EOMI
LUNGS: Rales B/L without wheeze
CV: Irreg irreg
ABD: +BS
EXT: Trace B/L LE edema
NEURO: Gross non-focal
SKIN: No rash
--- NOTE | 2023-06-25 10:14 | W.PN.UPDATE ---
Update Note
Progress Note Update
seen and examined prior to PUJA /CV. Procedure and risks reviewed. This includes increased risk with advanced age, h/o HF and severely reduced LVF.
The patient then underwent PUJA/CV with successful conversion from afib to sinus john.
hold amiodarone and carvedilol as HR is monitored. Additonal management directed by DCA.
[2023-06-25] MEDS: LASIX 40 MG IV (11:09)
--- NOTE | 2023-06-25 11:48 | PTCARENOTE ---
Pt returned post PUJA/CV awake, alert and oriented. Pt in SB,1st degree block, rate in the 40's to 50's. Room air sat 97. No c/o offered.
[2023-06-25 12:38] LABS: Glucose - Point of Care 174 mg/dl (70-99)
--- NOTE | 2023-06-25 15:32 | W.PN.HOSP.TC ---
Today's Communication/Plan
-
see bold
Assessment / Plan
Assessment / Plan
88 years old female presented with shortness of breath and weakness and was found to have rapid atrial fibrillation
#Atrial fibrillation with rapid ventricular response.� No history of similar episodes in the past.
Appreciate cardiology input, status post IV heparin/IV cardizem
Status post PUJA guided cardioversion on 04/24, currently sinus bradycardia
Currently on eliquis, hold amiodarone/coreg due to bradycardia
Continue to monitor
PT rec HH
# Suspect Acute HFpEF
Continue diuretics as per nephrology
Echocardiogram reviewed, continue fluid restriction
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
#Probable cardiorenal syndrome
Creatinine at 3 today, was 3.3, was 3, baseline 1.77
Nephrology following
#Chronic dysphagia
Patient was supposed to see Dr. Sweeney on 06/24
Appreciate GI input, EGD done in 2021 shows normal esophagus, no evidence of eosinophilic esophagitis, erythema in the antrum, no H. pylori
GI suspects esophageal dysmotility
No contraindications for PUJA cardioversion, follow-up with Dr. Sweeney in the office
# Hyperkalemia
Resolved
Hold losartan, low K diet
#Hyponatremia
Likely due to fluid overload, fluid restrict, Lasix as per nephrology
# Type 2 diabetes
# Hypoglycemia
Hypoglycemia resolved
Continue carb controlled diet, sliding scale insulin
# Type II DC secondary to rapid atrial fibrillation
No chest pain
# Hypovolemic shock/hypotension exacerbated by Cardizem drip
Hold losartan
Continue midodrine 5 mg 3 times daily
# Obesity
Affects all aspects of care
# Gastroesophageal reflux disease/history of hiatal hernia
IV Protonix, as needed Imodium for diarrhea
# Hyperlipidemia
# History of polymyalgia rheumatica/insomnia
Continue with Tylenol twice daily
DVT ppx - eliquis
Full Code
Physical Exam
General: Obese, no acute distress
HEENT: Normocephalic, Atraumatic, EOMI, MMM
Respiratory: Clear to Auscultation bilaterally
Cardiac: Normal S1/S2, tachycardic rate, irregular rhythm
GI: Soft, Nontender, Nondistended, Normal Bowel Sounds
Anticipated Discharge: 24 - 48 hours
Subjective/Interval History
-
Date of Service: June 25, 2023
Patient is lethargic after her procedure. Denies pain.
Objective Data
-
Labs:
Laboratory Results
06/25/23
04:44
WBC 8.6
Hgb 10.8 L
Hct 32.6 L
Plt Count 152
Sodium 133 L
Potassium 4.7
Chloride 103
Carbon Dioxide 21 L
BUN 86 H
Creatinine 3.0 H
Glucose 165 H
Calcium 9.2
Vital Signs:
Vital Signs
Temp Pulse Resp BP Pulse Ox
97.9 F 123 16 146/97 96
06/25/23 07:45 06/25/23 07:45 06/25/23 07:45 06/25/23 04:38 06/25/23 07:45
I&O
06/24/23 06/25/23 06/26/23
06:59 06:59 06:59
Intake Total 240 / 240 240 / 240
Output Total 350 / 350 600 / 600
Balance -110 / -110 -360 / -360
[2023-06-25] MEDS: LIPITOR 80 MG PO (17:54)
[2023-06-25] MEDS: ZETIA 10 MG PO (17:54)
[2023-06-25 18:20] LABS: Glucose - Point of Care 172 mg/dl (70-99)
--- NOTE | 2023-06-25 19:18 | PTCARENOTE ---
Pt's heart rate down in the 30's while working with PT. Pt was sitting on the toilet and bend down to fix her gown. Pt asymptomatic. Heart rate back up in the 50's to 60's while ambulating.
[2023-06-25] MEDS: COREG PO (21:22)
[2023-06-25 22:48] LABS: Glucose - Point of Care 193 mg/dl (70-99)
[2023-06-25] MEDS: TUMS EX (EXTRA STRENGTH) CHEWABLE 2 TABLET PO (22:48)
[2023-06-26] VITALS (8 sets, daily range): BP systolic 125–155; BP diastolic 30–77; PULSE 57; O2SAT 96; BMI 34.8
--- NOTE | 2023-06-26 03:50 | PTCARENOTE ---
Tele remains Sinus john w/ occasional PVCs. HR in the 40-60's at rest. Patient denies any CP but does c/o acid reflux. Administered Tums--see MAR for details. Patient aware of POC, call mosqueda within reach.
[2023-06-26 05:04] LABS: Hematocrit 30.6 % (37.0-47.0); Hemoglobin 10.4 g/dL (12.0-16.0); Mean Corpuscular Hgb 37.3 pg (27.0-31.0); Mean Corpuscular Volume 109.7 fL (81.0-99.0); Mean Platelet Volume 11.8 fL (7.4-10.4); Platelet Count 152 10^3/uL (130-400); Red Blood Cell Count 2.79 10^6/uL (4.20-5.40); White Blood Cell Count 9.9 10^3/uL (4.8-10.8)
[2023-06-26 05:25] LABS: Blood Urea Nitrogen 92 mg/dl (7-17); Calcium 9.1 mg/dl (8.4-10.2); Carbon Dioxide 23 mmol/L (22-30); Chloride 102 mmol/L (98-107); Estimated Creatinine Clearance 13 ml/min; Glucose 161 mg/dl (70-99); Potassium 4.6 mmol/L (3.5-5.1); Sodium 134 mmol/L (135-145)
--- NOTE | 2023-06-26 08:00 | PTCARENOTE ---
resumed care of patient from previous RN. Patient AAOx3. Min assist with walker into the bathroom. Assisted with AM care. Very SOB afterwards. Pulse ox 92%. Assisted to chair. Pulse ox quickly recovered to 96%. Breathing slowed. SB on monitor. HR
50-60s. Pulses palpable. trace edema. Poor appetite reported. Had formed BM. Claudine pad in place for stress inc. Will continue to monitor.
[2023-06-26] MEDS: ProAmatine 5 MG PO (08:30)
[2023-06-26] MEDS: ELIQUIS 2.5 MG PO ×2 (08:31→20:29)
[2023-06-26] MEDS: TYLENOL 650 MG PO ×2 (08:31→20:30)
[2023-06-26] MEDS: NOVOLOG FLEXPEN-LOW RESISTANCE 1 UNITS SC (08:41)
[2023-06-26] MEDS: COREG PO (08:43)
[2023-06-26] MEDS: PACERONE PO (08:43)
--- NOTE | 2023-06-26 08:57 | W.PN.HOSP.TC ---
Today's Communication/Plan
-
see bold
Assessment / Plan
Assessment / Plan
88 years old female presented with shortness of breath and weakness and was found to have rapid atrial fibrillation
#Atrial fibrillation with rapid ventricular response.� No history of similar episodes in the past.
Appreciate cardiology input, status post IV heparin/IV cardizem
Status post PUJA guided cardioversion on 04/24, currently sinus bradycardia
Currently on eliquis, continue amiodarone/coreg with holding parameters as per cardiology
Continue to monitor
PT rec HH
# Suspect Acute HFpEF
Continue diuretics as tolerated as per nephrology
Echocardiogram reviewed, continue fluid restriction
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
#Probable cardiorenal syndrome
Creatinine 3.2 today, was 3, was 3.3, was 3.3, was 3, baseline 1.77
Nephrology following
#Chronic dysphagia
Patient was supposed to see Dr. Sweeney on 06/24
Appreciate GI input, EGD done in 2021 shows normal esophagus, no evidence of eosinophilic esophagitis, erythema in the antrum, no H. pylori
GI suspects esophageal dysmotility
No contraindications for PUJA cardioversion, follow-up with Dr. Sweeney in the office
#Hyperkalemia
Resolved
Hold losartan, low K diet
#Hyponatremia
Likely due to fluid overload, fluid restrict, Lasix as per nephrology
# Type 2 diabetes
# Hypoglycemia
Hypoglycemia resolved
Continue carb controlled diet, sliding scale insulin
# Type II AR secondary to rapid atrial fibrillation
No chest pain
# Hypovolemic shock/hypotension exacerbated by Cardizem drip
Hold losartan
Continue midodrine 5 mg 3 times daily
# Obesity
Affects all aspects of care
# Gastroesophageal reflux disease/history of hiatal hernia
IV Protonix, as needed Imodium for diarrhea
# Hyperlipidemia
# History of polymyalgia rheumatica/insomnia
Continue with Tylenol twice daily
DVT ppx - eliquis
Full Code
Physical Exam
General: Obese, no acute distress
HEENT: Normocephalic, Atraumatic, EOMI, MMM
Respiratory: Clear to Auscultation bilaterally
Cardiac: Normal S1/S2, tachycardic rate, irregular rhythm
GI: Soft, Nontender, Nondistended, Normal Bowel Sounds
Anticipated Discharge: 24 - 48 hours
Subjective/Interval History
-
Date of Service: June 26, 2023
Patient continues to have dyspnea with activity. No palpitations, no chest pain. Her cough persists as well.
Objective Data
-
Labs:
Laboratory Results
06/26/23
04:35
WBC 9.9
Hgb 10.4 L
Hct 30.6 L
Plt Count 152
Sodium 134 L
Potassium 4.6
Chloride 102
Carbon Dioxide 23
BUN 92 H
Creatinine 3.2 H
Glucose 161 H
Calcium 9.1
Vital Signs:
Vital Signs
Temp Pulse Resp BP Pulse Ox
97.7 F 54 22 125/77 94
06/26/23 07:30 06/26/23 08:43 06/26/23 07:30 06/26/23 08:30 06/26/23 08:16
I&O
06/25/23 06/26/23 06/27/23
06:59 06:59 06:59
Intake Total 240 / 240
Output Total 600 / 600 300 / 300
Balance -360 / -360 -300 / -300
--- NOTE | 2023-06-26 11:12 | PTCARENOTE ---
patient inc of diarrhea x1
--- NOTE | 2023-06-26 11:36 | CM ---
CM following for DC planning needs.
Met w/ patient at bedside. Patient reports that she is feeling well.
Reviewed recommendation for home health. Pt. agrees to this and prefers [facility]. Referral sent, await determination.
Anticipated DC plan is for home w/ [facility], if accepted.
Will cont. to follow.
--- NOTE | 2023-06-26 11:36 | W.PN.CARDCBS ---
Addendum entered and electronically signed by Maryam Clement MD 06/26/23 12:42:
I saw and examined the patient.
The Nutrition And Dietetics Instructor's note was reviewed and I agree with the note.
Comment:
I saw and examined the patient.
The Nutrition And Dietetics Instructor's note was reviewed and I agree with the note.
Comment: Patient is maintaining sinus rhythm but has sinus bradycardia. Difficult situation given significant renal dysfunction and low left ventricular ejection fraction. Treatment is limited.
Hopefully left ventricular ejection fraction will improve now that patient is in sinus rhythm. Unable to add guideline directed medical therapy because of bradycardia and renal dysfunction.
-For heart failure defer diuretics to nephrology.
-Continue carvedilol 3.125 twice daily but will need to follow and this medicine may need to be discontinued if bradycardia becomes problematic.
-Patient with sick sinus syndrome. Would not be surprised if she requires pacing at some time in the future.
She unfortunately continues to be dyspneic with exertion.
-Check chest x-ray to rule out increased effusion.
Given atrial fibrillation we will try to suppress with amiodarone.
-She has received about 3.2 g thus far. At this time we will decrease amiodarone to 200 mg twice daily.
-Last EKG stable and QT interval stable.
-Anticoagulation started.
Has had hypotension
-On midodrine and stable with parameters
Original Note:
Today's Communication / Plan
-
Check CXR
Decrease amiodarone to 200 mg TID
Impression / Plan
-
PCP: Ashtyn Newby PA-C
Cardiology: Dr. Herrera
Impression:
Acute HFpEF
Newly diagnosed Afib with RVR s/p successful PUJA/CV 06/25/23
New start to chronic Eliquis OAC
Sinus bradycardia
DANIEL with CKD 4
Type 2 diabetes
h/o hypertension
Hyperlipidemia
Polymyalgia rheumatica
Diabetic neuropathy
Obesity
Dysphagia
Hypotension, new to midodrine 06/22/23
Holter monitor August 2020: Normal sinus rhythm average 63 bpm occasional PVCs and PACs with rare short atrial and ventricular runs, 2% PVC burden, 1% PAC burden
Echo 08/13/19: EF 50-55%, normal RV, mildly dilated left atrium, aortic sclerosis
Echo 06/23/23: EF 25-30%, global hypokinesis, biatrial enlargement, mild MR, mild TR, small pericardial effusion
Plan:
-Patient had a successful PUJA/CV on 06/25/23 and remains in SR with sinus bradycardia. Patient denies feeling lightheaded.
-Patient loaded with amiodarone this admission and has received a 3.2 gram load as of 06/26/23 AM. Will decrease to amiodarone 200 mg TID.
-Initially managed with Cardizem gtt, but stopped due to hypotension. Then Digoxin 125 mcg IV x2 doses of 06/21/23. Then Lopressor 12.5 mg PO q6 hours and then changed to Coreg 12.5 mg BID. Coreg dose lowered to 3.125 mg BID after CV on 06/25/23. Will
try to continue Coreg for GDMT.
-New to Eliquis 2.5 mg BID this admission (age 88, Cre 3.2)
-Remains in acute HF with symptoms of SOB and RICK, but pulse ox has been normal. Check CXR to evaluate for pleural effusion and if present would recommend thoracentesis given DANIEL with attempts at diuresis thus far.
-Nephrology managing IV diuretics due to CKD 4. Overall weight is up compared to admission. Patient was taking Lasix 40 mg PO daily prior to admission.
-Cre 3.3 on 06/24/23, then 3.0 on 06/25/23 and up again to 3.2 on 06/26/23.
-EF down to 25-30% by echo.
-CM might be related to tachyarrhythmia.
-Coreg as above. Outpatient dose of losartan has been on hold since admission due to DANIEL. Not a candidate for aldosterone antagonist due to DANIEL.
-Midodrine 5 mg TID added 06/22/23.
HPI: 88-year-old woman who has been short of breath for 1 week following what could have been a gastroenteritis, now with shortness of breath and progressive fatigue over the last month or so.� No prior history of atrial fibrillation.� She presented
to the emergency department with marginal blood pressure, heart rate approximately 140, markedly elevated proBNP and evidence of heart failure with atrial fibrillation and rapid ventricular response.� Heart rate has been difficult to control since
admission on IV diltiazem, she is short of breath, no awareness of tachycardia.� She has dysphagia and was planning to see Dr. Sweeney.
Progress Note - [employer]ating
Subjective
Date of Service: June 26, 2023
She says she does not feel any better
Objective
Labs:
06/26/23 04:35
06/26/23 04:35
Labs
Hgb 10.4 g/dL (12.0-16.0) L 06/26/23 04:35
Hct 30.6 % (37.0-47.0) L 06/26/23 04:35
Plt Count 152 10^3/uL (130-400) 06/26/23 04:35
APTT Cancelled 06/22/23 11:10
Sodium 134 mmol/L (135-145) L 06/26/23 04:35
Potassium 4.6 mmol/L (3.5-5.1) 06/26/23 04:35
BUN 92 mg/dl (7-17) H 06/26/23 04:35
Creatinine 3.2 mg/dL (0.6-1.0) H 06/26/23 04:35
Glucose 161 mg/dl (70-99) H 06/26/23 04:35
Vital Signs and I&O:
Vital Signs
Temp Pulse Resp BP Pulse Ox
97.7 F 54 22 125/77 94
06/26/23 07:30 06/26/23 08:43 06/26/23 07:30 06/26/23 08:30 06/26/23 08:16
Vital Signs
Temp Pulse Resp BP Pulse Ox
97.7 F 54 22 125/77 94
06/26/23 07:30 06/26/23 08:43 06/26/23 07:30 06/26/23 08:30 06/26/23 08:16
Intake & Output
06/24/23 06/25/23 06/26/23 06/27/23
06:59 06:59 06:59 06:59
Intake Total 240 / 240 240 / 240
Output Total 350 / 350 600 / 600 300 / 300
Balance -110 / -110 -360 / -360 -300 / -300
Physical Exam
Physical Exam
GEN: NAD. AAO to person, place and situation
HEENT: EOMI
LUNGS: Decreased BS at bases B/L
CV: Reg
ABD: +BS
EXT: +1 B/L LE edema
NEURO: Gross non-focal
SKIN: No rash
--- NOTE | 2023-06-26 12:49 | W.PN.NEPH.PH ---
Today's Communication / Plan
-
Will start Lasix 80 mg IV twice daily
Assessment/Plan
-
Acute kidney injury
CKD stage IV with baseline creatinine 1.77
Decompensated congestive heart failure in setting of new onset atrial fibrillation with rapid ventricular response
DEPUTY INSURANCE COMMISSIONER: Ejection fraction 25 to 30%
Hypotension
Diabetes
History of hypertension
PMR history
Dyslipidemia
Obesity
Troponin leak
Plan:
Acute kidney injury: in setting of cardio renal syndrome
-Creatinine is unchanged, uop ~300cc, weights unchanged
-Likely prerenal in mediated in setting of hypotension due to decompensated congestive heart failure in setting of atrial fibrillation with rapid ventricular response
-FeNa <1% --> prerenal disease
-Antihypertensives held, now hemodynamically stable
-s/p cardioversion today in setting of A-fib now bradycardic
-Accurate I's and O's and daily weight
-Initiate Lasix 80 mg IV twice daily, if this does not prove efficacious she may need transient inotropic support as I have little else to offer
-
-
Date of Service: June 26, 2023
CC / HPI / ROS
-
Chief Complaint:
DANIEL
History of Present Illness:
DANIEL on CKD (bl Cr 1.7). Cr i worsened to 3 point
Now in sinus rhythm following cardioversion on 06/25/2023 y
Review of Systems:
UOP around 300 cc
No chest pain
Weight is unchanged
Dysphagia
Labs
-
Labs:
WBC 9.9 10^3/uL (4.8-10.8) 06/26/23 04:35
RBC 2.79 10^6/uL (4.20-5.40) L 06/26/23 04:35
Hgb 10.4 g/dL (12.0-16.0) L 06/26/23 04:35
Hct 30.6 % (37.0-47.0) L 06/26/23 04:35
Plt Count 152 10^3/uL (130-400) 06/26/23 04:35
Sodium 134 mmol/L (135-145) L 06/26/23 04:35
Potassium 4.6 mmol/L (3.5-5.1) 06/26/23 04:35
Chloride 102 mmol/L (98-107) 06/26/23 04:35
Carbon Dioxide 23 mmol/L (22-30) 06/26/23 04:35
BUN 92 mg/dl (7-17) H 06/26/23 04:35
Creatinine 3.2 mg/dL (0.6-1.0) H 06/26/23 04:35
eGFR 13.50 06/26/23 04:35
Glucose 161 mg/dl (70-99) H 06/26/23 04:35
Calcium 9.1 mg/dl (8.4-10.2) 06/26/23 04:35
Dhl-C-Bndulufqpbj Pept 90221 pg/ml 06/21/23 14:55
Albumin 3.2 g/dl (3.5-5.0) L 06/21/23 14:59
Physical Exam
-
Vital Signs:
Vital Signs
Temp Pulse Resp BP Pulse Ox
97.7 F 54 20 125/77 93
06/26/23 11:52 06/26/23 08:43 06/26/23 11:52 06/26/23 08:30 06/26/23 11:52
Cardiovascular:: Regular rate and rhythm (Bradycardic)
Respiratory:: Bilateral: Coarse
Lung Excursion:: Normal
Abdomen:: Nontender and Soft
Bowel Sounds:: Normal
Extremity Edema:: +1: Bilateral:
Suarez Catheter: No
[2023-06-26 12:55] LABS: Glucose - Point of Care 181 mg/dl (70-99)
[2023-06-26] MEDS: ProAmatine PO ×2 (13:43→17:32)
[2023-06-26] MEDS: NOVOLOG FLEXPEN-LOW RESISTANCE SC (13:56)
--- NOTE | 2023-06-26 15:00 | PTCARENOTE ---
sent via stretcher for cxr.
[2023-06-26] MEDS: LASIX 80 MG IV (15:33)
[2023-06-26] MEDS: LIPITOR 80 MG PO (17:32)
[2023-06-26] MEDS: ZETIA 10 MG PO (17:32)
[2023-06-26 17:45] LABS: Glucose - Point of Care 202 mg/dl (70-99)
[2023-06-26] MEDS: NOVOLOG FLEXPEN-LOW RESISTANCE 2 UNITS SC (18:21)
[2023-06-26] MEDS: COREG 3.125 MG PO (20:29)
[2023-06-26] MEDS: PACERONE 200 MG PO (20:30)
[2023-06-26] MEDS: TUMS EX (EXTRA STRENGTH) CHEWABLE 2 TABLET PO (22:31)
[2023-06-26 22:35] LABS: Glucose - Point of Care 239 mg/dl (70-99)
[2023-06-27] VITALS (7 sets, daily range): BP systolic 138–150; BP diastolic 53–69; BMI 34.3
[2023-06-27 04:24] LABS: Hematocrit 30.1 % (37.0-47.0); Hemoglobin 10.3 g/dL (12.0-16.0); Mean Corp Hgb Conc. 34.2 g/dL (33.0-37.0); Mean Corpuscular Hgb 37.2 pg (27.0-31.0); Mean Corpuscular Volume 108.7 fL (81.0-99.0); Mean Platelet Volume 11.4 fL (7.4-10.4); Platelet Count 164 10^3/uL (130-400); Red Blood Cell Count 2.77 10^6/uL (4.20-5.40); White Blood Cell Count 8.4 10^3/uL (4.8-10.8)
[2023-06-27 04:51] LABS: Blood Urea Nitrogen 86 mg/dl (7-17); Calcium 9.1 mg/dl (8.4-10.2); Carbon Dioxide 24 mmol/L (22-30); Chloride 105 mmol/L (98-107); Estimated Creatinine Clearance 13 ml/min; Glucose 182 mg/dl (70-99); Sodium 135 mmol/L (135-145); eGFR 14.03
--- NOTE | 2023-06-27 05:45 | PTCARENOTE ---
patient slept well overnight. no episodes of diarrhea. denies any pain. HR SB 50s-60s with a first degree AVB. bp stable. oob x1 assist with the walker. dyspnea on exertion noted. 95% on RA at rest. lungs diminished, shallow breathing. encouraged
cough/deep breathing exercises.
[2023-06-27 05:57] LABS: Folate > 20.0 ng/ml (2.76-20); Vitamin B12 > 1000 pg/ml (239-931)
--- NOTE | 2023-06-27 07:59 | W.PN.HOSP.TC ---
Today's Communication/Plan
-
see bold
Assessment / Plan
Assessment / Plan
88 years old female presented with shortness of breath and weakness and was found to have rapid atrial fibrillation
#Atrial fibrillation with rapid ventricular response.� No history of similar episodes in the past.
Appreciate cardiology input, status post IV heparin/IV cardizem
Status post PUJA guided cardioversion on 04/24, currently sinus bradycardia
Currently on eliquis, continue amiodarone; coreg discontinued
Continue to monitor
PT rec HH
# Suspect Acute HFpEF
Continue diuretics as needed as per nephrology
Echocardiogram reviewed, continue fluid restriction
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
#Probable cardiorenal syndrome
Creatinine 3.1 today, was 3.2, was 3.3, was 3.3, was 3, baseline 1.77
Nephrology following
#Chronic dysphagia
Patient was supposed to see Dr. Sweeney on 06/24
Appreciate GI input, EGD done in 2021 shows normal esophagus, no evidence of eosinophilic esophagitis, erythema in the antrum, no H. pylori
GI suspects esophageal dysmotility
No contraindications for PUJA cardioversion, follow-up with Dr. Sweeney in the office
#Hyperkalemia
Resolved
Hold losartan, low K diet
#Hyponatremia
Likely due to fluid overload, fluid restrict, Lasix as per nephrology
# Type 2 diabetes
# Hypoglycemia
Hypoglycemia resolved
Continue carb controlled diet, sliding scale insulin
# Type II HI secondary to rapid atrial fibrillation
No chest pain
# Hypovolemic shock/hypotension exacerbated by Cardizem drip
Hold losartan
Blood pressure improved, change midodrine to as needed
# Obesity
Affects all aspects of care
# Gastroesophageal reflux disease/history of hiatal hernia
IV Protonix, as needed Imodium for diarrhea
# Hyperlipidemia
# History of polymyalgia rheumatica/insomnia
Continue with Tylenol twice daily
DVT ppx - eliquis
Full Code
Physical Exam
General: Obese, no acute distress
HEENT: Normocephalic, Atraumatic, EOMI, MMM
Respiratory: Clear to Auscultation bilaterally
Cardiac: Normal S1/S2, tachycardic rate, irregular rhythm
GI: Soft, Nontender, Nondistended, Normal Bowel Sounds
Anticipated Discharge: 24 - 48 hours
Subjective/Interval History
-
Date of Service: June 27, 2023
Patient's breathing mildly improved today.
Objective Data
-
Labs:
Laboratory Results
06/27/23
04:14
WBC 8.4
Hgb 10.3 L
Hct 30.1 L
Plt Count 164
Sodium 135
Potassium 4.0
Chloride 105
Carbon Dioxide 24
BUN 86 H
Creatinine 3.1 H
Glucose 182 H
Calcium 9.1
Vital Signs:
Vital Signs
Temp Pulse Resp BP Pulse Ox
97.7 F 64 18 150/53 95
06/27/23 07:48 06/27/23 07:48 06/27/23 07:48 06/27/23 07:48 06/27/23 07:48
I&O
06/26/23 06/27/23 06/28/23
06:59 06:59 06:59
Intake Total 200 / 200
Output Total 300 / 300 825 / 825
Balance -300 / -300 -625 / -625
[2023-06-27 08:51] LABS: Glucose - Point of Care 171 mg/dl (70-99)
[2023-06-27] MEDS: LASIX 80 MG IV ×2 (08:56→16:07)
[2023-06-27] MEDS: NOVOLOG FLEXPEN-LOW RESISTANCE 1 UNITS SC (08:57)
[2023-06-27] MEDS: PACERONE 200 MG PO ×2 (08:57→19:56)
[2023-06-27] MEDS: ProAmatine 5 MG PO ×2 (08:58→13:06)
[2023-06-27] MEDS: COREG 3.125 MG PO (08:58)
[2023-06-27] MEDS: ELIQUIS 2.5 MG PO ×2 (08:58→19:56)
[2023-06-27] MEDS: TYLENOL 650 MG PO ×2 (08:58→19:57)
--- NOTE | 2023-06-27 09:47 | W.PN.CARDCBS ---
Addendum entered and electronically signed by Ian Gonzalez MD 06/27/23 11:54:
Furosemide 80 mg IV twice daily added yesterday by nephrology
She still feels dyspnea, volume overload but thinks she is getting a little better day by day. Son at bedside
allergies: None
Outpatient medications: Aspirin, atorvastatin, carvedilol 25 twice daily, doxazosin 2 mg at bedtime, ezetimibe, furosemide 40 mg a day, losartan 100 mg a day and fish oil
Current medications: Furosemide 80 mg IV twice daily just started, atorvastatin 80 mg a day, ezetimibe 10 mg a day, insulin, midodrine 5 mg 3 times daily, apixaban 2.5 twice daily, carvedilol 3.125 mg twice daily, amiodarone 200 mg twice daily
PMH/PSH/FH/SH: Reviewed
Review of systems negative except as above
150/53, pulse 64, respirate 18, afebrile, sats 95%
Intake and output -0.6 L, weight is pending, had been stable over last 3 days
Head neck exam, unremarkable lungs with few crackles at bases, JVD still probably moderately elevated, bradycardic, soft systolic murmur, abdomen benign, still with 2+ to 3+ edema, pulses palpable, neuro nonfocal
Hemoglobin is 10.3, BUN and creatinine are 86 and 3.1, which is stable
Chest x-ray effusions, cardiomegaly
Impression:
Presented 06/21/2023 with SOB, fatigue
Acute HFpEF, proBNP 21,200
Newly diagnosed Afib with RVR s/p successful PUJA/CV 06/25/23
New start to chronic Eliquis OAC
Sinus bradycardia
DANIEL with CKD 4
Type 2 diabetes
h/o hypertension
Hyperlipidemia
Polymyalgia rheumatica
Diabetic neuropathy
Obesity
Dysphagia
Hypotension, new to midodrine 06/22/23
Plan:
Acute HFrEF: Modestly improved, continue furosemide 80 mg IV twice daily. I am hopeful that with control of atrial fibrillation tachycardia mediated cardiomyopathy will resolve. Will initiate and uptitrate GDMT as blood pressure and renal function
permit.
Acute on chronic kidney disease: Creatinine has plateaued, hopefully will begin to improve, which would facilitate diuresis
Persistent atrial fibrillation: Now in sinus rhythm/sinus bradycardia following cardioversion and amiodarone therapy. She is bradycardic. Stop carvedilol despite reduced EF. Continue Eliquis at renal dose.
Hypotension: Adequately controlled with midodrine, continue
Eventual repeat echocardiogram. I am hopeful that EF will improve.
Original Note:
Today's Communication / Plan
-
Continue IV Diuresis per nephrology
Continue reduced dose of Coreg and Midodrine
Continue to monitor weight, renal function
Remains in SR, Continue Eliquis
Impression / Plan
-
PCP: Ashtyn Newby PA-C
Cardiology: Dr. Herrera
Impression:
Presented 06/21/2023 with SOB, fatigue
Acute HFpEF, proBNP 21,200
Newly diagnosed Afib with RVR s/p successful PUJA/CV 06/25/23
New start to chronic Eliquis OAC
Sinus bradycardia
DANIEL with CKD 4
Type 2 diabetes
h/o hypertension
Hyperlipidemia
Polymyalgia rheumatica
Diabetic neuropathy
Obesity
Dysphagia
Hypotension, new to midodrine 06/22/23
Holter monitor August 2020: Normal sinus rhythm average 63 bpm occasional PVCs and PACs with rare short atrial and ventricular runs, 2% PVC burden, 1% PAC burden
Echo 08/13/19: EF 50-55%, normal RV, mildly dilated left atrium, aortic sclerosis
Echo 06/23/23: EF 25-30%, global hypokinesis, biatrial enlargement, mild MR, mild TR, small pericardial effusion
Plan:
Presented 06/21/2023 with SOB, fatigue found to have acute heart failure with reduced EF, proBNP 21,200 and new onset Afib w/ RVR.
Paroxysmal atrial fibrillation w/ RVR on presentation 06/21/2023. Was new diagnosis
-Patient had a successful PUJA/CV on 06/25/23 and remains in SR with sinus bradycardia. Patient denies feeling lightheaded.
-Patient loaded with amiodarone this admission and has received a 3.8 gram load as of 06/27/23 AM. Continue amiodarone 200 mg BID
-Initially managed with Cardizem gtt, but stopped due to hypotension. Then Digoxin 125 mcg IV x2 doses of 06/21/23. Then Lopressor 12.5 mg PO q6 hours and then changed to Coreg 12.5 mg BID. Coreg dose lowered to 3.125 mg BID after CV on 06/25/23. Will
try to continue Coreg for GDMT.
-New to Eliquis 2.5 mg BID this admission (age 88, Cre >1.5 at baseline)
-SSS:will need to monitor closely. May need PPM/ICD in further if EF does not improve and/or she becomes more symptomatic from SSS
-Check ECG with Amio load
Acute on chronic HFrEF, proBNP 21,200 on admission
-Still evidence of volume overload w/ symptoms of RICK, but pulse ox has been normal and now on room air. Outpt weight 05/29/2023 was 173 lbs, currently 190 lbs
-Nephrology managing IV diuretics due to CKD 4. Lasix 80 mg IV BID resumed 06/26 (got 1 dose). She reports this am making better urine. {Patient was taking Lasix 40 mg PO daily prior to admission.}
-CKD 4 w/ creat 1.77 as outpt . Cre 3.3 on 06/24/23, then 3.0 on 06/25/23, 3.2 on 06/26/23, 3.1 06/27/2023. T/c RHC if does not respond to diuresis.
-CXR 06/26/2023 with moderate right lower lobe atelectasis versus scarring (progressed) and small right pleural effusion, slightly worse than prior. Does not appear enough to tap
-EF down to 25-30% by echo. CM might be related to tachyarrhythmia.
-GDMT limited due to bradycardia, hypotension, CKD. Coreg as above. Outpatient dose of losartan has been on hold since admission due to DANIEL. Not a candidate for aldosterone antagonist due to DANIEL.
Hypotension
-Midodrine 5 mg TID added 06/22/23.
-This prevents GDMT for CM/HF
HPI: 88-year-old woman who has been short of breath for 1 week following what could have been a gastroenteritis, now with shortness of breath and progressive fatigue over the last month or so.� No prior history of atrial fibrillation.� She presented
to the emergency department with marginal blood pressure, heart rate approximately 140, markedly elevated proBNP and evidence of heart failure with atrial fibrillation and rapid ventricular response.� Heart rate has been difficult to control since
admission on IV diltiazem, she is short of breath, no awareness of tachycardia.� She has dysphagia and was planning to see Dr. Sweeney.
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
Subjective
Date of Service: June 27, 2023
Patient seen and examined. Patient sitting up in chair. Patient reports no longer short of breath at rest but continues to have dyspnea on exertion with activities like ambulating to the bathroom. She denies orthopnea or PND. She is now on room
air. She feels some abdominal bloating.
Son at bedside
Objective
Labs:
06/27/23 04:14
06/27/23 04:14
Labs
Hgb 10.3 g/dL (12.0-16.0) L 06/27/23 04:14
Hct 30.1 % (37.0-47.0) L 06/27/23 04:14
Plt Count 164 10^3/uL (130-400) 06/27/23 04:14
APTT Cancelled 06/22/23 11:10
Sodium 135 mmol/L (135-145) 06/27/23 04:14
Potassium 4.0 mmol/L (3.5-5.1) 06/27/23 04:14
BUN 86 mg/dl (7-17) H 06/27/23 04:14
Creatinine 3.1 mg/dL (0.6-1.0) H 06/27/23 04:14
Glucose 182 mg/dl (70-99) H 06/27/23 04:14
Vital Signs and I&O:
Vital Signs
Temp Pulse Resp BP Pulse Ox
97.7 F 64 18 150/53 95
06/27/23 07:48 06/27/23 09:00 06/27/23 07:48 06/27/23 08:58 06/27/23 08:30
Vital Signs
Temp Pulse Resp BP Pulse Ox
97.7 F 64 18 150/53 95
06/27/23 07:48 06/27/23 09:00 06/27/23 07:48 06/27/23 08:58 06/27/23 08:30
Intake & Output
06/25/23 06/26/23 06/27/23 06/28/23
06:59 06:59 06:59 06:59
Intake Total 240 / 240 200 / 200
Output Total 600 / 600 300 / 300 825 / 825
Balance -360 / -360 -300 / -300 -625 / -625
Physical Exam
Physical Exam
GEN: No distress, awake, Ox3, sitting up in chair
HEENT: supple, anicteric, mmm
LUNGS: crackles at bases with mildly diminished BS bilaterally, no wheezes/rales; on RA
CV: Reg, S1/S2, 1/6 syst LSB, no murmur
ABD: mildly distended/firm, BS+, NT
EXT: +1 pham LE edema, no clubbing or cyanosis
NEURO: Gross non-focal
SKIN: No rash, warm, dry, pink
--- NOTE | 2023-06-27 11:12 | PTCARENOTE ---
patient has ambulated numerous times to for soft/diarrhea stools. patient currently up in chair taking with son.
--- NOTE | 2023-06-27 11:40 | CM ---
CM following for DC planning needs.
Noted PT recommendation on 06/26 for home health.
Met w/ patient, son at bedside. We reviewed DC plans. Plan is for home with [facility]N. Referral has been made to [facility] per discussion on 06/26, accepted. Reviewed this with patient, son. She feels safe to go home, states that her children check in on her
regularly.
Plan will be for home w/ [facility].
Will cont. to follow.
[2023-06-27 13:04] LABS: Glucose - Point of Care 204 mg/dl (70-99)
[2023-06-27] MEDS: NOVOLOG FLEXPEN-LOW RESISTANCE 2 UNITS SC ×2 (13:04→17:50)
--- NOTE | 2023-06-27 13:20 | PTCARENOTE ---
when washing patient noticed red, itchy, raw looking skin under bilat. breast and open area below tail bone , cleaned with saline and optifoam dsg. applied. TT Dr. Cooley, will order something for under breasts.
[2023-06-27] MEDS: FLUSH (NSS) 1 FLUSH IV (16:07)
[2023-06-27 16:39] LABS: Glucose - Point of Care 204 mg/dl (70-99)
--- NOTE | 2023-06-27 17:17 | W.PN.NEPH.PH ---
Today's Communication / Plan
-
- UOP significantly improved
Assessment/Plan
-
Acute kidney injury
CKD stage IV with baseline creatinine 1.77
Decompensated congestive heart failure in setting of new onset atrial fibrillation with rapid ventricular response
ACQUISITION ADVISOR: Ejection fraction 25 to 30%
Hypotension
Diabetes
History of hypertension
PMR history
Dyslipidemia
Obesity
Troponin leak
Plan:
Acute kidney injury: in setting of cardio renal syndrome
-Creatinine is unchanged, uop 2L, weights unchanged
-Likely prerenal in mediated in setting of hypotension due to decompensated congestive heart failure in setting of atrial fibrillation with rapid ventricular response
-FeNa <1% --> prerenal disease
-Antihypertensives held, now hemodynamically stable
-s/p cardioversion, doing well
-Accurate I's and O's and daily weight
-Initiate Lasix 80 mg IV twice daily, proving to be effective. will CTM
-would be cautious about initiating GDMT while cardiorenal in play
-
-
Date of Service: June 27, 2023
CC / HPI / ROS
-
Chief Complaint:
DANIEL
History of Present Illness:
DANIEL on CKD (bl Cr 1.7). Cr i worsened to 3 point
Now in sinus rhythm following cardioversion on 06/25/2023 y
Review of Systems:
UOP around 2L
No chest pain
Weight is unchanged
Dysphagia
Labs
-
Labs:
WBC 8.4 10^3/uL (4.8-10.8) 06/27/23 04:14
RBC 2.77 10^6/uL (4.20-5.40) L 06/27/23 04:14
Hgb 10.3 g/dL (12.0-16.0) L 06/27/23 04:14
Hct 30.1 % (37.0-47.0) L 06/27/23 04:14
Plt Count 164 10^3/uL (130-400) 06/27/23 04:14
Sodium 135 mmol/L (135-145) 06/27/23 04:14
Potassium 4.0 mmol/L (3.5-5.1) 06/27/23 04:14
Chloride 105 mmol/L (98-107) 06/27/23 04:14
Carbon Dioxide 24 mmol/L (22-30) 06/27/23 04:14
BUN 86 mg/dl (7-17) H 06/27/23 04:14
Creatinine 3.1 mg/dL (0.6-1.0) H 06/27/23 04:14
eGFR 14.03 06/27/23 04:14
Glucose 182 mg/dl (70-99) H 06/27/23 04:14
Calcium 9.1 mg/dl (8.4-10.2) 06/27/23 04:14
Uox-D-Aosgjbumbxx Pept 76182 pg/ml 06/21/23 14:55
Albumin 3.2 g/dl (3.5-5.0) L 06/21/23 14:59
Physical Exam
-
Vital Signs:
Vital Signs
Temp Pulse Resp BP Pulse Ox
98.1 F 58 20 138/56 98
06/27/23 15:26 06/27/23 16:07 06/27/23 15:26 06/27/23 16:07 06/27/23 15:26
Cardiovascular:: Regular rate and rhythm
Respiratory:: Bilateral: Coarse
Lung Excursion:: Normal
Abdomen:: Nontender and Soft
Bowel Sounds:: Normal
Extremity Edema:: +2: Bilateral:
Suarez Catheter: No
[2023-06-27] MEDS: MYCOSTATIN OINTMENT 1 APPLIC TOPICAL (17:50)
[2023-06-27] MEDS: ZETIA 10 MG PO (17:52)
[2023-06-27] MEDS: LIPITOR 80 MG PO (17:52)
[2023-06-27] MEDS: DESENEX/MITRAZOL/ZEASORB 1 APPLIC TOPICAL (21:41)
[2023-06-27] MEDS: MYCOSTATIN OINTMENT TOPICAL (21:42)
[2023-06-27 22:03] LABS: Glucose - Point of Care 229 mg/dl (70-99)
[2023-06-27] MEDS: TUMS EX (EXTRA STRENGTH) CHEWABLE 2 TABLET PO (22:34)
--- NOTE | 2023-06-27 23:15 | PTCARENOTE ---
Pt rec'd oob in recliner chair assisted to bathroom where she was given partial bath by pct. New foam drsg placed on sacral area. chair cushion placed
on recliner. pt encouraged to change positions freq. Sinus on telemetry. lungs diminished with crackles noted in bases.
LE + 2 swelling noted. Pt stated she didn't want to elevate legs while in recliner because she was afraid she wouldn't get to bathroom quick enough if she had any more loose stool.
Desenex changed to powder under breast for redness.
[2023-06-28] VITALS (9 sets, daily range): BP systolic 130–169; BP diastolic 53–71; PULSE 65; O2SAT 96; BMI 33.2
[2023-06-28 03:32] LABS: Hematocrit 33.4 % (37.0-47.0); Hemoglobin 11.2 g/dL (12.0-16.0); Mean Corp Hgb Conc. 33.5 g/dL (33.0-37.0); Mean Corpuscular Hgb 37.3 pg (27.0-31.0); Mean Corpuscular Volume 111.3 fL (81.0-99.0); Mean Platelet Volume 11.4 fL (7.4-10.4); Platelet Count 185 10^3/uL (130-400); Red Cell Dist. Width 15.9 % (11.5-14.5); White Blood Cell Count 10.1 10^3/uL (4.8-10.8)
[2023-06-28 03:47] LABS: Blood Urea Nitrogen 85 mg/dl (7-17); Calcium 9.4 mg/dl (8.4-10.2); Carbon Dioxide 27 mmol/L (22-30); Chloride 104 mmol/L (98-107); Estimated Creatinine Clearance 14 ml/min; Glucose 187 mg/dl (70-99); Potassium 3.9 mmol/L (3.5-5.1); Sodium 137 mmol/L (135-145)
--- NOTE | 2023-06-28 04:11 | PTCARENOTE ---
Pt turning self during the night,off sacral area. No complaints this morning. am labs drawn cr improved.
[2023-06-28 06:57] LABS: Glucose - Point of Care 189 mg/dl (70-99)
[2023-06-28] MEDS: NOVOLOG FLEXPEN-LOW RESISTANCE 1 UNITS SC (08:58)
[2023-06-28] MEDS: LASIX 80 MG IV ×2 (09:01→17:19)
[2023-06-28] MEDS: DESENEX/MITRAZOL/ZEASORB 1 APPLIC TOPICAL ×2 (09:02→20:14)
[2023-06-28] MEDS: PACERONE 200 MG PO ×2 (09:02→20:13)
[2023-06-28] MEDS: ELIQUIS 2.5 MG PO ×2 (09:03→20:13)
[2023-06-28] MEDS: MYCOSTATIN OINTMENT TOPICAL (09:03)
[2023-06-28] MEDS: TYLENOL 650 MG PO ×2 (09:03→20:14)
--- NOTE | 2023-06-28 09:11 | W.PN.HOSP.TC ---
Today's Communication/Plan
-
see bold
Assessment / Plan
Assessment / Plan
88 years old female presented with shortness of breath and weakness and was found to have rapid atrial fibrillation
#Atrial fibrillation with rapid ventricular response.� No history of similar episodes in the past.
Appreciate cardiology input, status post IV heparin/IV cardizem
Status post PUJA guided cardioversion on 04/24, currently NSR
Continue on eliquis and amiodarone; coreg discontinued
Continue to monitor
PT rec HH
# Suspect Acute HFpEF
Continue diuretics as needed as per nephrology
Started on hydralazine 10 mg twice a day by cardiology
Cards considering imdur tomorrow
Echocardiogram reviewed, continue fluid restriction
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
#Probable cardiorenal syndrome
Creatinine 2.9 today, was 3.1, was 3.2, was 3.3, was 3.3, was 3, baseline 1.77
Hold losartan. Nephrology following
# Hypovolemic shock/hypotension exacerbated by Cardizem drip
Resolved. Blood pressure stable off midodrine
#Chronic dysphagia
Patient was supposed to see Dr. Sweeney on 06/24
Appreciate GI input, EGD done in 2021 shows normal esophagus, no evidence of eosinophilic esophagitis, erythema in the antrum, no H. pylori
GI suspects esophageal dysmotility
No contraindications for PUJA cardioversion, follow-up with Dr. Sweeney in the office
#Hyperkalemia
Resolved. Hold losartan, low K diet
#Hyponatremia
Resolved
Likely due to fluid overload, fluid restrict, Lasix as per nephrology
# Type 2 diabetes
# Hypoglycemia
Hypoglycemia resolved
Continue carb controlled diet, sliding scale insulin
# Type II DE secondary to rapid atrial fibrillation
No chest pain
#Microcytic anemia
B12 and folic acid high
#Yeast infection under b/l breasts
Antifuncal ointment and powder
# Obesity
Affects all aspects of care
# Gastroesophageal reflux disease/history of hiatal hernia
IV Protonix, as needed Imodium for diarrhea
# Hyperlipidemia
Continue statin/zetia
# History of polymyalgia rheumatica/insomnia
Continue with Tylenol twice daily
DVT ppx - eliquis
Full Code
Total time spent to see the patient on the floor, examine the patient, review data and lab results, discuss treatment plan with patient, nursing staff around 52 minutes.
Physical Exam
General: Obese, no acute distress
HEENT: Normocephalic, Atraumatic, EOMI, MMM
Respiratory: Bibasilar crackles
Cardiac: Normal S1/S2, tachycardic rate, irregular rhythm
GI: Soft, Nontender, Nondistended, Normal Bowel Sounds
Ext: No clubbing or cyanosis, bilateral lower extremity edema noted
Derm: Skin is erythematous and itchy underneath mammary fold
Anticipated Discharge: 24 - 48 hours
Subjective/Interval History
-
Date of Service: June 27, 2023
Dyspnea with activity improved. No fever.
Objective Data
-
Labs:
Laboratory Results
06/27/23
04:14
WBC 8.4
Hgb 10.3 L
Hct 30.1 L
Plt Count 164
Sodium 135
Potassium 4.0
Chloride 105
Carbon Dioxide 24
BUN 86 H
Creatinine 3.1 H
Glucose 182 H
Calcium 9.1
Vital Signs:
Vital Signs
Temp Pulse Resp BP Pulse Ox
98.1 F 64 20 145/53 98
06/27/23 15:26 06/27/23 13:06 06/27/23 15:26 06/27/23 13:06 06/27/23 15:26
I&O
06/26/23 06/27/23 06/28/23
06:59 06:59 06:59
Intake Total 200 / 200
Output Total 300 / 300 825 / 825
Balance -300 / -300 -625 / -625
[2023-06-28] MEDS: APRESOLINE 10 MG PO ×2 (09:12→20:13)
--- NOTE | 2023-06-28 09:48 | W.PN.CARDCBS ---
Today's Communication / Plan
-
For heart failure with reduced ejection fraction in the setting of stable blood pressure hydralazine 10 mg twice daily was added
For similar reasons consider starting isosorbide tomorrow and uptitrating medications as tolerates.
Limited with guideline directed medical therapy for heart failure with reduced ejection fraction given comorbidity
Check proBNP level tomorrow
Diuresis per nephrology
Impression / Plan
-
PCP: Ashtyn Newby PA-C
Cardiology: Dr. Herrera
Impression:
Presented 06/21/2023 with SOB, fatigue
Acute HFpEF, proBNP 21,200
Newly diagnosed Afib with RVR s/p successful PUJA/CV 06/25/23
New start to chronic Eliquis OAC
Sinus bradycardia
DANIEL with CKD 4
Type 2 diabetes
h/o hypertension
Hyperlipidemia
Polymyalgia rheumatica
Diabetic neuropathy
Obesity
Dysphagia
Hypotension, new to midodrine 06/22/23
Holter monitor August 2020: Normal sinus rhythm average 63 bpm occasional PVCs and PACs with rare short atrial and ventricular runs, 2% PVC burden, 1% PAC burden
Echo 08/13/19: EF 50-55%, normal RV, mildly dilated left atrium, aortic sclerosis
Echo 06/23/23: EF 25-30%, global hypokinesis, biatrial enlargement, mild MR, mild TR, small pericardial effusion
Plan:
Presented 06/21/2023 with SOB, fatigue found to have acute heart failure with reduced EF, proBNP 21,200 and new onset Afib w/ RVR.
Paroxysmal atrial fibrillation w/ RVR on presentation 06/21/2023. Was new diagnosis
-Patient had a successful PUJA/CV on 06/25/23 and remains in SR with sinus bradycardia. No current symptoms.
-Patient loaded with amiodarone this admission and has received a 4.4 gram load including 06/28/23 AM. Continue amiodarone 200 mg BID.
-Telemetry stable and heart rates acceptable. Patient understands she is at risk for needing pacemaker/ICD.
-Unfortunately beta-kosta had to be discontinued.
-EKG reviewed and stable with stable QTc. Telemetry reviewed.
Acute on chronic HFrEF, proBNP 21,200 on admission
-Presumed to be secondary to tachycardia from atrial fibrillation. Given renal insufficiency ischemic evaluation was not undertaken.
-Still evidence of volume overload w/ symptoms of RICK, but improving overall. Outpt weight 05/29/2023 was 173 lbs, was up to 191 pounds now 181.
-Nephrology managing IV diuretics due to CKD 4.
-CKD 4 w/ creat 1.77 as outpt . Cre 3.3 on 06/24/23, then 3.0 on 06/25/23, 3.2 on 06/26/23, 3.1 06/27/2023. Improved now 2.9. Follow-up.
-CXR 06/26/2023 with moderate right lower lobe atelectasis versus scarring (progressed) and small right pleural effusion, slightly worse than prior. Does not appear enough to tap
-EF down to 25-30% by echo.
-GDMT limited due to bradycardia, hypotension, CKD. Beta-kosta had to be discontinued. Given DANIEL not an CRUZITO inhibitor/ARB/Aldactone candidate. Not an SGLT2 candidate for the same reason.
-Have started hydralazine 10 mg p.o. twice daily and eventually will start isosorbide. (Have discussed with nephrology through secure text) if pacemaker in the future would resume carvedilol.
-Check proBNP tomorrow
Hypotension
-Midodrine 5 mg TID added 06/22/23. This had been discontinued and now with mild hypertension.
HPI: 88-year-old woman who has been short of breath for 1 week following what could have been a gastroenteritis, now with shortness of breath and progressive fatigue over the last month or so.� No prior history of atrial fibrillation.� She presented
to the emergency department with marginal blood pressure, heart rate approximately 140, markedly elevated proBNP and evidence of heart failure with atrial fibrillation and rapid ventricular response.� Heart rate has been difficult to control since
admission on IV diltiazem, she is short of breath, no awareness of tachycardia.� She has dysphagia and was planning to see Dr. Sweeney.
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
Subjective
Date of Service: June 28, 2023
Feeling better still with dyspnea on exertion. Improving edema. No chest discomfort.
Objective
Labs:
06/28/23 03:23
06/28/23 03:23
Labs
Hgb 11.2 g/dL (12.0-16.0) L 06/28/23 03:23
Hct 33.4 % (37.0-47.0) L 06/28/23 03:23
Plt Count 185 10^3/uL (130-400) 06/28/23 03:23
APTT Cancelled 06/22/23 11:10
Sodium 137 mmol/L (135-145) 06/28/23 03:23
Potassium 3.9 mmol/L (3.5-5.1) 06/28/23 03:23
BUN 85 mg/dl (7-17) H 06/28/23 03:23
Creatinine 2.9 mg/dL (0.6-1.0) H 06/28/23 03:23
Glucose 187 mg/dl (70-99) H 06/28/23 03:23
Vital Signs and I&O:
Vital Signs
Temp Pulse Resp BP Pulse Ox
97.3 F 82 18 162/63 96
06/28/23 06:53 06/28/23 09:12 06/28/23 06:53 06/28/23 09:12 06/28/23 08:30
Vital Signs
Temp Pulse Resp BP Pulse Ox
97.3 F 82 18 162/63 96
06/28/23 06:53 06/28/23 09:12 06/28/23 06:53 06/28/23 09:12 06/28/23 08:30
Intake & Output
06/26/23 06/27/23 06/28/23 06/29/23
06:59 06:59 06:59 06:59
Intake Total 200 / 200
Output Total 300 / 300 825 / 825 1700 / 1700
Balance -300 / -300 -625 / -625 -1700 / -1700
Physical Exam
Physical Exam
General: Well developed, well nourished in NAD.
Heart: Distant heart sounds with regular rate and rhythm
Lungs: Decreased breath sounds at the bases with few crackles
Extremities: Trace to +1 edema bilateral
Neuro: Grossly nonfocal, awake, alert and oriented x3.
[2023-06-28 12:57] LABS: Glucose - Point of Care 267 mg/dl (70-99)
[2023-06-28] MEDS: NOVOLOG FLEXPEN-LOW RESISTANCE 3 UNITS SC (13:24)
--- NOTE | 2023-06-28 13:36 | W.PN.NEPH.PH ---
Today's Communication / Plan
-
- hydralazine initiated
- excellent UOP
- breathing better today
Assessment/Plan
-
Acute kidney injury
CKD stage IV with baseline creatinine 1.77
Decompensated congestive heart failure in setting of new onset atrial fibrillation with rapid ventricular response
OWNER: Ejection fraction 25 to 30%
Hypotension
Diabetes
History of hypertension
PMR history
Dyslipidemia
Obesity
Troponin leak
Plan:
Acute kidney injury: in setting of cardio renal syndrome
-Creatinine is unchanged, uop 2L, weights unchanged
-Likely prerenal in mediated in setting of hypotension due to decompensated congestive heart failure in setting of atrial fibrillation with rapid ventricular response
-FeNa <1% --> prerenal disease
-Antihypertensives held, now hemodynamically stable
-s/p cardioversion, doing well
-Accurate I's and O's and daily weight
-Initiate Lasix 80 mg IV twice daily, proving to be effective. will CTM
-would be cautious about initiating GDMT while cardiorenal in play. initiated hydralazine on 06/28
-
-
Date of Service: June 28, 2023
CC / HPI / ROS
-
Chief Complaint:
DANIEL
History of Present Illness:
DANIEL on CKD (bl Cr 1.7). Cr downtrending to 2.9
Now in sinus rhythm following cardioversion on 06/25/2023 y
Review of Systems:
UOP around 2L
No chest pain
Weight is unchanged
Dysphagia
Labs
-
Labs:
WBC 10.1 10^3/uL (4.8-10.8) 06/28/23 03:23
RBC 3.00 10^6/uL (4.20-5.40) L 06/28/23 03:23
Hgb 11.2 g/dL (12.0-16.0) L 06/28/23 03:23
Hct 33.4 % (37.0-47.0) L 06/28/23 03:23
Plt Count 185 10^3/uL (130-400) 06/28/23 03:23
Sodium 137 mmol/L (135-145) 06/28/23 03:23
Potassium 3.9 mmol/L (3.5-5.1) 06/28/23 03:23
Chloride 104 mmol/L (98-107) 06/28/23 03:23
Carbon Dioxide 27 mmol/L (22-30) 06/28/23 03:23
BUN 85 mg/dl (7-17) H 06/28/23 03:23
Creatinine 2.9 mg/dL (0.6-1.0) H 06/28/23 03:23
eGFR 15.20 06/28/23 03:23
Glucose 187 mg/dl (70-99) H 06/28/23 03:23
Calcium 9.4 mg/dl (8.4-10.2) 06/28/23 03:23
Xwk-I-Yrgbsipivbh Pept 84414 pg/ml 06/21/23 14:55
Albumin 3.2 g/dl (3.5-5.0) L 06/21/23 14:59
Physical Exam
-
Vital Signs:
Vital Signs
Temp Pulse Resp BP Pulse Ox
97.8 F 82 20 162/63 97
06/28/23 11:02 06/28/23 09:12 06/28/23 11:02 06/28/23 09:12 06/28/23 11:02
Cardiovascular:: Irregular rate and rhythm
Respiratory:: Bilateral: Coarse
Lung Excursion:: Normal
Abdomen:: Nontender and Soft
Bowel Sounds:: Normal
Extremity Edema:: +3: Bilateral:
Suarez Catheter: No
[2023-06-28] MEDS: ZETIA 10 MG PO (17:19)
[2023-06-28] MEDS: LIPITOR 80 MG PO (17:19)
--- NOTE | 2023-06-28 18:04 | PTCARENOTE ---
pt continues to be SR on the monitor, HR in the 50s-60s, VSS. Pt offers no complaints at this time. Pt educated on plan of care for the evening and pt verbalized understanding. pt continues to ambulate in the room with RW and has no issues. Pt call
mosqueda within reach.
[2023-06-28 18:11] LABS: Glucose - Point of Care 205 mg/dl (70-99)
[2023-06-28] MEDS: NOVOLOG FLEXPEN-LOW RESISTANCE 2 UNITS SC (18:27)
[2023-06-28] MEDS: MYCOSTATIN OINTMENT 1 APPLIC TOPICAL (20:14)
--- NOTE | 2023-06-28 21:16 | PTCARENOTE ---
Received pt at handoff. AOX3. Assessment noted as documented. Tele- SR w/ 1st deg HB. HR 60s. Pt offers no complaints at this time. Sacral foam dressing c/d/i. Encouraged pt to change positions frequently. Verbalizes understanding. Pt currently in
bed; call panda w/in reach.
[2023-06-28 21:39] LABS: Glucose - Point of Care 218 mg/dl (70-99)
[2023-06-29] VITALS (7 sets, daily range): BP systolic 128–157; BP diastolic 53–71; BMI 33.1
[2023-06-29 05:40] LABS: Blood Urea Nitrogen 81 mg/dl (7-17); Calcium 9.8 mg/dl (8.4-10.2); Carbon Dioxide 29 mmol/L (22-30); Chloride 100 mmol/L (98-107); Estimated Creatinine Clearance 15 ml/min; Glucose 203 mg/dl (70-99); Potassium 3.6 mmol/L (3.5-5.1); Sodium 137 mmol/L (135-145); eGFR 17.32
[2023-06-29 05:45] LABS: NT-proBNP > 27000 pg/ml
[2023-06-29 08:07] LABS: Glucose - Point of Care 213 mg/dl (70-99)
[2023-06-29] MEDS: NOVOLOG FLEXPEN-LOW RESISTANCE 2 UNITS SC ×2 (09:02→17:30)
[2023-06-29] MEDS: LASIX 80 MG IV ×2 (09:03→16:13)
[2023-06-29] MEDS: DESENEX/MITRAZOL/ZEASORB 1 APPLIC TOPICAL ×2 (09:03→19:22)
[2023-06-29] MEDS: TYLENOL 650 MG PO ×2 (09:04→19:21)
[2023-06-29] MEDS: PACERONE 200 MG PO ×2 (09:04→19:21)
[2023-06-29] MEDS: ELIQUIS 2.5 MG PO ×2 (09:04→19:22)
[2023-06-29] MEDS: MYCOSTATIN OINTMENT TOPICAL (09:05)
--- NOTE | 2023-06-29 09:07 | W.PN.HOSP.TC ---
Today's Communication/Plan
-
see bold
Assessment / Plan
Assessment / Plan
88 years old female presented with shortness of breath and weakness and was found to have rapid atrial fibrillation
#Atrial fibrillation with rapid ventricular response.� No history of similar episodes in the past.
Appreciate cardiology input, status post IV heparin/IV cardizem
Status post PUJA guided cardioversion on 04/24, currently NSR
Continue on eliquis and amiodarone; coreg discontinued
Continue to monitor
PT rec HH
# Suspect Acute HFpEF
Continue diuretics as needed as per nephrology
Started on hydralazine 10 mg twice a day and Imdur 30 mg daily by cardiology
Echocardiogram reviewed, continue fluid restriction
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
#Cardiorenal syndrome
Creatinine 2.6 today, was 2.9, was 3.1, was 3.2, was 3.3, was 3.3, was 3, baseline 1.77
Hold losartan. Nephrology following
# Hypovolemic shock/hypotension exacerbated by Cardizem drip
Resolved. Blood pressure stable off midodrine
#Chronic dysphagia
Patient was supposed to see Dr. Sweeney on 06/24
Appreciate GI input, EGD done in 2021 shows normal esophagus, no evidence of eosinophilic esophagitis, erythema in the antrum, no H. pylori
GI suspects esophageal dysmotility
No contraindications for PUJA cardioversion, follow-up with Dr. Sweeney in the office
#Hyperkalemia
Resolved. Hold losartan, low K diet
#Hyponatremia
Resolved
Likely due to fluid overload, fluid restrict, Lasix as per nephrology
# Type 2 diabetes
# Hypoglycemia
Hypoglycemia resolved
Continue carb controlled diet, sliding scale insulin
# Type II [place] secondary to rapid atrial fibrillation
No chest pain
#Microcytic anemia
B12 and folic acid high
#Yeast infection under b/l breasts
Antifuncal ointment and powder
# Obesity
Affects all aspects of care
# Gastroesophageal reflux disease/history of hiatal hernia
IV Protonix, as needed Imodium for diarrhea
# Hyperlipidemia
Continue statin/zetia
# History of polymyalgia rheumatica/insomnia
Continue with Tylenol twice daily
DVT ppx - eliquis
Full Code
Physical Exam
General: Obese, no acute distress
HEENT: Normocephalic, Atraumatic, EOMI, MMM
Respiratory: Bibasilar crackles
Cardiac: Normal S1/S2, tachycardic rate, irregular rhythm
GI: Soft, Nontender, Nondistended, Normal Bowel Sounds
Ext: No clubbing or cyanosis, bilateral lower extremity edema noted
Derm: Skin is erythematous and itchy underneath mammary fold
Anticipated Discharge: 24 - 48 hours
Subjective/Interval History
-
Date of Service: June 29, 2023
Patient's breathing continues to improve.
Objective Data
-
Labs:
Laboratory Results
06/29/23
04:42
Sodium 137
Potassium 3.6
Chloride 100
Carbon Dioxide 29
BUN 81 H
Creatinine 2.6 H
Glucose 203 H
Calcium 9.8
Vital Signs:
Vital Signs
Temp Pulse Resp BP Pulse Ox
97.8 F 79 20 137/55 98
06/29/23 08:08 06/29/23 04:28 06/29/23 08:08 06/29/23 04:28 06/29/23 08:08
I&O
06/28/23 06/29/23 06/30/23
06:59 06:59 06:59
Intake Total 480 / 480
Output Total 1700 / 1700 2400 / 2400 350 / 350
Balance -1700 / -1700 -1920 / -1920 -350 / -350
[2023-06-29] MEDS: APRESOLINE 10 MG PO ×2 (09:38→19:21)
[2023-06-29] MEDS: IMDUR (EXTENDED RELEASE) 30 MG PO (10:58)
[2023-06-29 12:24] LABS: Glucose - Point of Care 316 mg/dl (70-99)
[2023-06-29] MEDS: NOVOLOG FLEXPEN-LOW RESISTANCE 4 UNITS SC (12:24)
--- NOTE | 2023-06-29 12:36 | W.PN.CARDCBS ---
Today's Communication / Plan
-
Continue diuresis per nephrology
Isosorbide added for guideline directed medical therapy
Continue to follow daily weights/input/output.
Impression / Plan
-
PCP: Ashtyn Newby PA-C
Cardiology: Dr. Herrera
Impression:
Presented 06/21/2023 with SOB, fatigue
Acute HFpEF, proBNP 21,200
Newly diagnosed Afib with RVR s/p successful PUJA/CV 06/25/23
New start to chronic Eliquis OAC
Sinus bradycardia
DANIEL with CKD 4
Type 2 diabetes
h/o hypertension
Hyperlipidemia
Polymyalgia rheumatica
Diabetic neuropathy
Obesity
Dysphagia
Hypotension, new to midodrine 06/22/23
Holter monitor August 2020: Normal sinus rhythm average 63 bpm occasional PVCs and PACs with rare short atrial and ventricular runs, 2% PVC burden, 1% PAC burden
Echo 08/13/19: EF 50-55%, normal RV, mildly dilated left atrium, aortic sclerosis
Echo 06/23/23: EF 25-30%, global hypokinesis, biatrial enlargement, mild MR, mild TR, small pericardial effusion
Plan:
Presented 06/21/2023 with SOB, fatigue found to have acute heart failure with reduced EF, proBNP 21,200 and new onset Afib w/ RVR.
Paroxysmal atrial fibrillation w/ RVR on presentation 06/21/2023. Was new diagnosis
-Patient had a successful PUJA/CV on 06/25/23 and remains in SR with sinus bradycardia, improved/stable. No current symptoms.
-Patient loaded with amiodarone this admission and has received a 5 gram load including 06/29/23 AM. Continue amiodarone 200 mg BID and likely could decrease to daily dosing after tomorrow.
-Telemetry stable and heart rates acceptable. Patient understands she is at risk for needing pacemaker/ICD.
-Unfortunately beta-kosta had to be discontinued.
-EKG reviewed and stable with stable QTc. Telemetry reviewed.
Acute on chronic HFrEF, proBNP 21,200 on admission
-Presumed to be secondary to tachycardia from atrial fibrillation. Given renal insufficiency ischemic evaluation was not undertaken.
-Still evidence of volume overload. However now improving overall. Outpt weight 05/29/2023 was 173 lbs, was up to 191 pounds now 180 with very good urine output.
-Nephrology managing IV diuretics due to CKD 4.
-CKD 4 w/ creat 1.77 as outpt . Cre 3.3 on 06/24/23, improved and on 06/29/2023 2.6.
-CXR 06/26/2023 with moderate right lower lobe atelectasis versus scarring (progressed) and small right pleural effusion, slightly worse than prior. Does not appear enough to tap
-EF down to 25-30% by echo.
-GDMT limited due to bradycardia, hypotension, CKD. Beta-kosta had to be discontinued. Given DANIEL not an CRUZITO inhibitor/ARB/Aldactone candidate. Not an SGLT2 candidate for the same reason.
-Have started hydralazine 10 mg p.o. twice daily (06/28/2023) and have now started Imdur (06/29/2023). (Have discussed with nephrology through secure text). She is tolerating with very good blood pressures if pacemaker in the future would resume
carvedilol.
-proBNP however remains very elevated 27,000. Continue diuresis.
Hypotension
-Midodrine 5 mg TID added 06/22/23. This had been discontinued and now with mild hypertension.
HPI: 88-year-old woman who has been short of breath for 1 week following what could have been a gastroenteritis, now with shortness of breath and progressive fatigue over the last month or so.� No prior history of atrial fibrillation.� She presented
to the emergency department with marginal blood pressure, heart rate approximately 140, markedly elevated proBNP and evidence of heart failure with atrial fibrillation and rapid ventricular response.� Heart rate has been difficult to control since
admission on IV diltiazem, she is short of breath, no awareness of tachycardia.� She has dysphagia and was planning to see Dr. Sweeney.
Progress Note - Nonprofit Fundraiser
Subjective
Date of Service: June 29, 2023
Breathing is a little bit better overall. She denies chest pain, palpitations and dizziness.
Objective
Labs:
06/28/23 03:23
06/29/23 04:42
Labs
Hgb 11.2 g/dL (12.0-16.0) L 06/28/23 03:23
Hct 33.4 % (37.0-47.0) L 06/28/23 03:23
Plt Count 185 10^3/uL (130-400) 06/28/23 03:23
APTT Cancelled 06/22/23 11:10
Sodium 137 mmol/L (135-145) 06/29/23 04:42
Potassium 3.6 mmol/L (3.5-5.1) 06/29/23 04:42
BUN 81 mg/dl (7-17) H 06/29/23 04:42
Creatinine 2.6 mg/dL (0.6-1.0) H 06/29/23 04:42
Glucose 203 mg/dl (70-99) H 06/29/23 04:42
Vital Signs and I&O:
Vital Signs
Temp Pulse Resp BP Pulse Ox
98 F 66 20 157/60 97
06/29/23 12:00 06/29/23 10:00 06/29/23 12:00 06/29/23 09:38 06/29/23 12:00
Vital Signs
Temp Pulse Resp BP Pulse Ox
98 F 66 20 157/60 97
06/29/23 12:00 06/29/23 10:00 06/29/23 12:00 06/29/23 09:38 06/29/23 12:00
Intake & Output
06/27/23 06/28/23 06/29/23 06/30/23
06:59 06:59 06:59 06:59
Intake Total 200 / 200 480 / 480
Output Total 825 / 825 1700 / 1700 2400 / 2400 350 / 350
Balance -625 / -625 -1700 / -1700 -1920 / -1920 -350 / -350
Physical Exam
Physical Exam
Genera Well developed, well nourished in NAD.
Heart: Distant heart sounds RRR, no murmurs, No S3, S4, no rubs.
Lungs: Crackles with decreased breath sounds at the bases
Extremities: No clubbing, cyanosis +1 edema bilaterally.
Neuro: Grossly nonfocal, awake, alert and oriented x3.
--- NOTE | 2023-06-29 12:45 | W.PN.NEPH.PH ---
Today's Communication / Plan
-
- Cr downtrending, excellent UOP
Assessment/Plan
-
Acute kidney injury
CKD stage IV with baseline creatinine 1.77
Decompensated congestive heart failure in setting of new onset atrial fibrillation with rapid ventricular response
RDA: Ejection fraction 25 to 30%
Hypotension
Diabetes
History of hypertension
PMR history
Dyslipidemia
Obesity
Troponin leak
Plan:
Acute kidney injury: in setting of cardio renal syndromd
-Creatinine downtrending to 2.6 today, uop 2L, weights decreased
-Likely prerenal in mediated in setting of hypotension due to decompensated congestive heart failure in setting of atrial fibrillation with rapid ventricular response
-FeNa <1% --> prerenal disease
-Antihypertensives held, now hemodynamically stable
-s/p cardioversion, doing well
-Accurate I's and O's and daily weight
-Initiate Lasix 80 mg IV twice daily, proving to be effective. will CTM
-would be cautious about initiating GDMT while cardiorenal in play. initiated hydralazine on 06/28
-
-
Date of Service: June 29, 2023
CC / HPI / ROS
-
Chief Complaint:
DANIEL
History of Present Illness:
DANIEL on CKD (bl Cr 1.7). Cr downtrending to 2.6
Now in sinus rhythm following cardioversion on 06/25/2023 y
Review of Systems:
UOP around 2L
No chest pain
Weight decreased
feeling improved
Dysphagia
Labs
-
Labs:
WBC 10.1 10^3/uL (4.8-10.8) 06/28/23 03:23
RBC 3.00 10^6/uL (4.20-5.40) L 06/28/23 03:23
Hgb 11.2 g/dL (12.0-16.0) L 06/28/23 03:23
Hct 33.4 % (37.0-47.0) L 06/28/23 03:23
Plt Count 185 10^3/uL (130-400) 06/28/23 03:23
Sodium 137 mmol/L (135-145) 06/29/23 04:42
Potassium 3.6 mmol/L (3.5-5.1) 06/29/23 04:42
Chloride 100 mmol/L (98-107) 06/29/23 04:42
Carbon Dioxide 29 mmol/L (22-30) 06/29/23 04:42
BUN 81 mg/dl (7-17) H 06/29/23 04:42
Creatinine 2.6 mg/dL (0.6-1.0) H 06/29/23 04:42
eGFR 17.32 06/29/23 04:42
Glucose 203 mg/dl (70-99) H 06/29/23 04:42
Calcium 9.8 mg/dl (8.4-10.2) 06/29/23 04:42
Peg-F-Ocrcybkdmru Pept > 82462 pg/ml 06/29/23 04:42
Albumin 3.2 g/dl (3.5-5.0) L 06/21/23 14:59
Physical Exam
-
Vital Signs:
Vital Signs
Temp Pulse Resp BP Pulse Ox
98 F 66 20 157/60 97
06/29/23 12:00 06/29/23 10:00 06/29/23 12:00 06/29/23 09:38 06/29/23 12:00
Cardiovascular:: Irregular rate and rhythm
Respiratory:: Bilateral: Coarse
Lung Excursion:: Normal
Abdomen:: Nontender and Soft
Bowel Sounds:: Normal
Extremity Edema:: +2: Bilateral:
Suarez Catheter: No
[2023-06-29 17:09] LABS: Glucose - Point of Care 228 mg/dl (70-99)
[2023-06-29] MEDS: LIPITOR 80 MG PO (17:30)
[2023-06-29] MEDS: ZETIA 10 MG PO (17:30)
[2023-06-29] MEDS: MYCOSTATIN OINTMENT 1 APPLIC TOPICAL (19:22)
[2023-06-29 20:48] LABS: Blood Urea Nitrogen 72 mg/dl (7-17); Calcium 9.2 mg/dl (8.4-10.2); Carbon Dioxide 31 mmol/L (22-30); Chloride 100 mmol/L (98-107); Estimated Creatinine Clearance 15 ml/min; Glucose 241 mg/dl (70-99); Potassium 3.3 mmol/L (3.5-5.1); Sodium 136 mmol/L (135-145); eGFR 17.32
[2023-06-29] MEDS: KCL 40 MEQ PO (21:13)
[2023-06-29 22:45] LABS: Glucose - Point of Care 288 mg/dl (70-99)
[2023-06-30] VITALS (8 sets, daily range): BP systolic 93–163; BP diastolic 54–70; PULSE 70; O2SAT 98; BMI 32.9
--- NOTE | 2023-06-30 00:56 | PTCARENOTE ---
Assumed care of patient at change of shift. Tele monitor shows SR w/ 1st AV block and PVCs. HR in the 60's. Patients potassium level in AM was 3.6, and patient received 80mg IV Lasix BID. Due to frequent PVCs, Heaven FUENTES notified. Orders
obtained to draw BMP level, blood work collected/sent to lab. Potassium 3.3. Heaven FUENTES made aware, and 40meq of KCL PO ordered/ administered--see MAR for details. Patient aware of POC, call mosuqeda within reach.
[2023-06-30 04:15] LABS: Blood Urea Nitrogen 72 mg/dl (7-17); Calcium 9.1 mg/dl (8.4-10.2); Carbon Dioxide 30 mmol/L (22-30); Chloride 102 mmol/L (98-107); Estimated Creatinine Clearance 16 ml/min; Glucose 224 mg/dl (70-99); Potassium 3.8 mmol/L (3.5-5.1); Sodium 135 mmol/L (135-145); eGFR 18.16
--- NOTE | 2023-06-30 06:22 | W.PN.HOSP.TC ---
Today's Communication/Plan
-
.
Assessment / Plan
Assessment / Plan
Physical Exam
General: Obese, no acute distress
HEENT: Normocephalic, Atraumatic, EOMI, MMM
Respiratory: Bibasilar crackles
Cardiac: Normal S1/S2, tachycardic rate, irregular rhythm
GI: Soft, Nontender, Nondistended, Normal Bowel Sounds
Ext: No clubbing or cyanosis, bilateral lower extremity edema noted
Derm: Skin is erythematous and itchy underneath mammary fold
Psych: no agitation
88 years old female presented with shortness of breath and weakness and was found to have rapid atrial fibrillation
#Atrial fibrillation with rapid ventricular response.� No history of similar episodes in the past.
Appreciate cardiology input, status post IV heparin/IV Cardizem
Status post PUJA guided cardioversion on 04/24, currently NSR
Continue on Eliquis and amiodarone; coreg discontinued
Decreasing AMiodarone dose
Continue to monitor
PT rec HH
# Hypokalemia, replace
Add also daily dose of KCl
# Acute HFpEF
Continue diuretic, Lasix 80 mg BID
Started on hydralazine 10 mg twice a day and Imdur 30 mg daily by cardiology
Echocardiogram reviewed, continue fluid restriction
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
#Cardiorenal syndrome
Creatinine 2. 5 today,
Held losartan. Nephrology following, help appreciated.
# Hypovolemic shock/hypotension exacerbated by Cardizem drip
Resolved. Blood pressure stable off midodrine
#Chronic dysphagia
Patient was supposed to see Dr. Sweeney on 06/24
Appreciate GI input, EGD done in 2021 shows normal esophagus, no evidence of eosinophilic esophagitis, erythema in the antrum, no H. pylori
GI suspects esophageal dysmotility
No contraindications for PUJA cardioversion, follow-up with Dr. Sweeney in the office
#Hyperkalemia
Resolved. Hold losartan, low K diet
#Hyponatremia
Resolved
Likely due to fluid overload, fluid restrict, Lasix as per nephrology
# Type 2 diabetes
# Hypoglycemia
Hypoglycemia resolved
Continue carb controlled diet, sliding scale insulin
# Type II [place] secondary to rapid atrial fibrillation
No chest pain
#Microcytic anemia
B12 and folic acid high
#Yeast infection under b/l breasts
Antifuncal ointment and powder
# Obesity
Affects all aspects of care
# Gastroesophageal reflux disease/history of hiatal hernia
IV Protonix, as needed Imodium for diarrhea
# Hyperlipidemia
Continue statin/Zetia
# History of polymyalgia rheumatica/insomnia
Continue with Tylenol twice daily
DVT ppx - Eliquis
Full Code
Total time spent to see the patient, examine the patient on the floor, review data and lab results, discuss treatment plan with patient, nursing staff around 55 minutes
Anticipated Discharge: 24 - 48 hours
Subjective/Interval History
-
Date of Service: June 30, 2023
She feels better
no sob
No chest pain
Objective Data
-
Labs:
Laboratory Results
06/29/23 06/30/23
20:28 03:39
Sodium 136 135
Potassium 3.3 L 3.8
Chloride 100 102
Carbon Dioxide 31 H 30
BUN 72 H 72 H
Creatinine 2.6 H 2.5 H
Glucose 241 H 224 H
Calcium 9.2 9.1
Vital Signs:
Vital Signs
Temp Pulse Resp BP Pulse Ox
97.6 F 75 20 150/70 95
06/30/23 03:34 06/30/23 03:30 06/30/23 03:34 06/30/23 03:30 06/30/23 03:34
I&O
06/28/23 06/29/23 06/30/23
06:59 06:59 06:59
Intake Total 480 / 480 720 / 720
Output Total 1700 / 1700 2400 / 2400 1900 / 1900
Balance -1700 / -1700 -1920 / -1920 -1180 / -1180
--- NOTE | 2023-06-30 07:31 | W.PN.CARDCBS ---
Addendum entered and electronically signed by Danial Streeter MD 06/30/23 12:46:
I saw and examined the patient.
The SMOKE TESTER or PA's note was reviewed and I agree with the note.
Comment: General: Well developed, well nourished in NAD.
Neck: Supple, no JVD, HJR, carotids +2 B/L, no bruits bilaterally.
Heart: Non displaced PMI, RRR, no murmurs, No S3, S4, no rubs.
Lungs: Scattered rhonchi
Extremities: No clubbing, cyanosis or edema bilaterally.
Neuro: Grossly nonfocal, awake, alert and oriented x3.
She appears to be much improved and is on room air. Nephrology managing diuretics. Change amiodarone to 200 mg daily status post 5.2 g load of amiodarone. She remains in sinus rhythm.
Original Note:
Today's Communication / Plan
-
Ongoing diuresis, but near previous dry weight from 2019
Cre stable, BP 163/60 prior to AM meds. Will follow with additions of Imdur ER and hydralazine this past weekend
Reduce amiodarone to 200 mg daily, has received a 5.2 gram load thus far
Impression / Plan
-
PCP: Ashtyn Newby PA-C
Cardiology: Dr. Herrera
Impression:
Presented 06/21/2023 with SOB, fatigue
Acute HFpEF, proBNP 21,200
Newly diagnosed Afib with RVR s/p successful PUJA/CV 06/25/23
New start to chronic Eliquis OAC
Sinus bradycardia
DANIEL with CKD 4
Type 2 diabetes
h/o hypertension
Hyperlipidemia
Polymyalgia rheumatica
Diabetic neuropathy
Obesity
Dysphagia
Hypotension, new to midodrine 06/22/23, then stopped 06/27/23
Holter monitor August 2020: Normal sinus rhythm average 63 bpm occasional PVCs and PACs with rare short atrial and ventricular runs, 2% PVC burden, 1% PAC burden
Echo 08/13/19: EF 50-55%, normal RV, mildly dilated left atrium, aortic sclerosis
Echo 06/23/23: EF 25-30%, global hypokinesis, biatrial enlargement, mild MR, mild TR, small pericardial effusion
Plan:
-Weight is down 12 lbs from a peak weight of 191 lbs this admission. Current weight on 06/30/23 if 179 lbs. Last known dry weight from 08/13/19 was 179 lbs.
-Cre peaked at 3.3 and is improving with diuresis. Cre is 2.5 on 06/30/23. Previous baseline Cre was 1.77.
-Nephrology following and Lasix 80 mg IV BID is ordered. Patient was taking Lasix 40 mg PO daily prior to admission.
-Patient with new rapid Afib this admission and had a successful PUJA/CV 06/25/23. Remains in SR. Amiodarone loaded this admission and she has received a 5.2 gram load as of 06/30/23 AM. Will decreased to amiodarone 200 mg daily as of 06/30/23.
-Patient with sinus bradycardia. Patient started on Coreg this admission and dose was higher while in Afib, but following CV the dose was lowered and then stopped due to ongoing bradycardia. Telemetry reviewed and patient with 9 beat run of what
looks like AIVR on 06/29/23 late night and then PVCs, but otherwise heart rates acceptable. Patient is at risk for needing pacemaker/ICD.
-EF down to 25-30% by echo. CM might be related to tachyarrhythmia. Cannot add BB due to sinus bradycardia, Coreg stopped earlier this admission. Cannot add CRUZITO/ARB/aldosterone antagonist due to DANIEL on CKD 4. Patient was started on Imdur ER 30 mg
daily and hydralazine 10 mg BID on 06/29/23 and 06/28/23 respectively. Nephrology cautioning against aggressive GDMT in the setting of cardiorenal syndrome.
-Midodrine started and stopped this admission for hypotension that improved and then HTN.
HPI: 88-year-old woman who has been short of breath for 1 week following what could have been a gastroenteritis, now with shortness of breath and progressive fatigue over the last month or so.� No prior history of atrial fibrillation.� She presented
to the emergency department with marginal blood pressure, heart rate approximately 140, markedly elevated proBNP and evidence of heart failure with atrial fibrillation and rapid ventricular response.� Heart rate has been difficult to control since
admission on IV diltiazem, she is short of breath, no awareness of tachycardia.� She has dysphagia and was planning to see Dr. Sweeney.
Progress Note - Automation Manager
Subjective
Date of Service: June 30, 2023
She feels less bloated
Objective
Labs:
06/28/23 03:23
06/30/23 03:39
Labs
Hgb 11.2 g/dL (12.0-16.0) L 06/28/23 03:23
Hct 33.4 % (37.0-47.0) L 06/28/23 03:23
Plt Count 185 10^3/uL (130-400) 06/28/23 03:23
APTT Cancelled 06/22/23 11:10
Sodium 135 mmol/L (135-145) 06/30/23 03:39
Potassium 3.8 mmol/L (3.5-5.1) 06/30/23 03:39
BUN 72 mg/dl (7-17) H 06/30/23 03:39
Creatinine 2.5 mg/dL (0.6-1.0) H 06/30/23 03:39
Glucose 224 mg/dl (70-99) H 06/30/23 03:39
Vital Signs and I&O:
Vital Signs
Temp Pulse Resp BP Pulse Ox
97.6 F 75 20 150/70 95
06/30/23 03:34 06/30/23 03:30 06/30/23 03:34 06/30/23 03:30 06/30/23 03:34
Vital Signs
Temp Pulse Resp BP Pulse Ox
97.6 F 75 20 150/70 95
06/30/23 03:34 06/30/23 03:30 06/30/23 03:34 06/30/23 03:30 06/30/23 03:34
Intake & Output
06/28/23 06/29/23 06/30/23 07/01/23
06:59 06:59 06:59 06:59
Intake Total 480 / 480 720 / 720
Output Total 1700 / 1700 2400 / 2400 1900 / 1900
Balance -1700 / -1700 -1920 / -1920 -1180 / -1180
Physical Exam
Physical Exam
GEN: NAD. AAO to person, place and situation
HEENT: EOMI
LUNGS: Decreased BS at bases B/L
CV: Reg
ABD: +BS
EXT: +1 B/L LE edema
NEURO: Gross non-focal
SKIN: No rash
[2023-06-30 07:51] LABS: Magnesium 1.8 mg/dl (1.6-2.3)
[2023-06-30] MEDS: TYLENOL 650 MG PO ×2 (08:20→20:44)
[2023-06-30] MEDS: ELIQUIS 2.5 MG PO ×2 (08:21→20:44)
[2023-06-30] MEDS: IMDUR (EXTENDED RELEASE) 30 MG PO (08:21)
[2023-06-30] MEDS: PACERONE 200 MG PO (08:21)
[2023-06-30] MEDS: KCL 20 MEQ PO ×2 (08:21→20:43)
[2023-06-30] MEDS: MYCOSTATIN OINTMENT 1 APPLIC TOPICAL ×2 (08:22→20:46)
[2023-06-30] MEDS: LASIX 80 MG IV ×2 (08:22→17:45)
[2023-06-30] MEDS: APRESOLINE 10 MG PO ×2 (08:22→20:45)
[2023-06-30 08:36] LABS: Glucose - Point of Care 244 mg/dl (70-99)
[2023-06-30] MEDS: NOVOLOG FLEXPEN-LOW RESISTANCE 2 UNITS SC (08:36)
--- NOTE | 2023-06-30 09:43 | CM ---
Reviewed chart. Met with Mrs. Lorenzana to review discharge plans. She states she is feeling better. She states prior to admission she resides alone in a mobile home with four steps to enter. She states prior to admission she was independent in
the house and uses a single point cane in the community. She states she is independent with adls. She states she has a walker that was her spouses, and single point canes. She states she has a prescription plan and uses [facility]. We
reviewed [facility]NA services with [facility]. She is still agreeable to [facility]. Medical work-up in progress. The discharge plan is to return home with [facility] when medically stable.
--- NOTE | 2023-06-30 12:08 | W.PN.NEPH.PH ---
Today's Communication / Plan
-
cont lasix IV today
Assessment/Plan
-
Acute kidney injury
CKD stage IV with baseline creatinine 1.77 -Dr Avila
Decompensated congestive heart failure in setting of new onset atrial fibrillation with rapid ventricular response s/p CV
X RAY PHYSICIAN: Ejection fraction 25 to 30%
Hypotension
Diabetes
History of hypertension
PMR history
Dyslipidemia
Obesity
Troponin leak
Plan:
Acute kidney injury: in setting of cardio renal syndrome
-Creatinine downtrending to 2.5 today, reaching close to dry wt
Likely change to po diuretics soon
Bp are increasing, meds adjustment per cards, titrate hydralazine
at d/c f/u Dr Avila
-
-
Date of Service: June 30, 2023
CC / HPI / ROS
-
Chief Complaint:
DANIEL
History of Present Illness:
DAINEL on CKD (bl Cr 1.7). Cr downtrending to 2.5
Now in sinus rhythm following cardioversion on 06/25/2023
wt slowly decreasing\\
Bp are increasing now
Review of Systems:
No chest pain
sob better not baseline yet
still with edema
Labs
-
Labs:
WBC 10.1 10^3/uL (4.8-10.8) 06/28/23 03:23
RBC 3.00 10^6/uL (4.20-5.40) L 06/28/23 03:23
Hgb 11.2 g/dL (12.0-16.0) L 06/28/23 03:23
Hct 33.4 % (37.0-47.0) L 06/28/23 03:23
Plt Count 185 10^3/uL (130-400) 06/28/23 03:23
Sodium 135 mmol/L (135-145) 06/30/23 03:39
Potassium 3.8 mmol/L (3.5-5.1) 06/30/23 03:39
Chloride 102 mmol/L (98-107) 06/30/23 03:39
Carbon Dioxide 30 mmol/L (22-30) 06/30/23 03:39
BUN 72 mg/dl (7-17) H 06/30/23 03:39
Creatinine 2.5 mg/dL (0.6-1.0) H 06/30/23 03:39
eGFR 18.16 06/30/23 03:39
Glucose 224 mg/dl (70-99) H 06/30/23 03:39
Calcium 9.1 mg/dl (8.4-10.2) 06/30/23 03:39
Tii-F-Sukajzxuhne Pept > 35923 pg/ml 06/29/23 04:42
Albumin 3.2 g/dl (3.5-5.0) L 06/21/23 14:59
Physical Exam
-
Vital Signs:
Vital Signs
Temp Pulse Resp BP Pulse Ox
98.1 F 69 18 163/60 98
06/30/23 11:30 06/30/23 11:00 06/30/23 11:30 06/30/23 07:36 06/30/23 11:30
Cardiovascular:: Regular rate and rhythm
Respiratory:: Bilateral: CTA
Lung Excursion:: Normal
Abdomen:: Nontender and Soft
Extremity Edema:: +2: Bilateral:
Suarez Catheter: No
[2023-06-30 12:13] LABS: Glucose - Point of Care 290 mg/dl (70-99)
[2023-06-30] MEDS: DESENEX/MITRAZOL/ZEASORB 1 APPLIC TOPICAL ×2 (12:24→20:44)
[2023-06-30] MEDS: NOVOLOG FLEXPEN-LOW RESISTANCE 3 UNITS SC ×2 (12:25→18:01)
--- NOTE | 2023-06-30 15:41 | WOUNDNOTE ---
[facility] RN note: Patient seen for HAPI report for a stage 2 sacral pressure injury. Patient has a small stage 2 lower sacral pressure injury. Patient sitting in recliner with an air chair cushion. Patient can stand with a walker. Silicone border foam
changed. Patient's oral intake fair. Skin on heels intact. Patient admitted 06/21/23 with a fib, PUJA with cardioversion 04/24, dysphagia, DM, obesity. Patient lives at home alone with her children visiting often. VN planned when discharged. Care plan
to be updated. Consult as needed.
[2023-06-30] MEDS: LIPITOR 80 MG PO (17:45)
[2023-06-30] MEDS: ZETIA 10 MG PO (17:45)
[2023-06-30 18:01] LABS: Glucose - Point of Care 257 mg/dl (70-99)
[2023-06-30 22:19] LABS: Glucose - Point of Care 265 mg/dl (70-99)
--- NOTE | 2023-06-30 23:43 | PTCARENOTE ---
Pt. in NSR, rate 60's, with first degree HB. Other vitals stable. OOB to chair and BR with minimal assist, gait steady with walker. Voiding clear yellow urine without difficulty. Pt. hoping to be discharged home soon.
[2023-07-01 03:58] VITALS: BP 145/51
[2023-07-01 05:03] LABS: Blood Urea Nitrogen 63 mg/dl (7-17); Calcium 8.9 mg/dl (8.4-10.2); Carbon Dioxide 32 mmol/L (22-30); Chloride 102 mmol/L (98-107); Estimated Creatinine Clearance 15 ml/min; Glucose 223 mg/dl (70-99); Potassium 3.6 mmol/L (3.5-5.1); Sodium 137 mmol/L (135-145); eGFR 17.32
[2023-07-01 06:00] VITALS: BMI 32.3
--- NOTE | 2023-07-01 06:27 | W.PN.HOSP.TC ---
Addendum entered and electronically signed by Ry Aly MD 07/01/23 12:19:
Addendum
Patient was seen by sharepoint analyst. Okay for discharge.
Spoke with inspector and tester on-call, recommended Lasix 40 mg twice a day at home
Patient will do blood work in a few days knee
Total discharge time spent to see the patient, examine the patient on the floor, review data and lab results, discuss discharge plan with patient, consultants, case managers, nursing staff around 65 minutes
Original Note:
Today's Communication/Plan
-
possible dc
Assessment / Plan
Assessment / Plan
Physical Exam
General: Obese, no acute distress
HEENT: Normocephalic, Atraumatic, EOMI, MMM
Respiratory: Bibasilar crackles
Cardiac: Normal S1/S2, tachycardic rate, irregular rhythm
GI: Soft, Nontender, Nondistended, Normal Bowel Sounds
Ext: No clubbing or cyanosis, bilateral lower extremity edema noted
Derm: Skin is erythematous and itchy underneath mammary fold
Psych: no agitation
88 years old female presented with shortness of breath and weakness and was found to have rapid atrial fibrillation
#Atrial fibrillation with rapid ventricular response.� No history of similar episodes in the past.
Appreciate cardiology input, status post IV heparin/IV Cardizem
Status post PUJA guided cardioversion on 04/24, currently NSR
Continue on Eliquis and amiodarone; coreg discontinued
Decreasing AMiodarone dose
Continue to monitor
PT rec HH
# Hypokalemia, replace
Add also daily dose of KCl
# Acute HFpEF
Continue diuretic, Lasix 80 mg BID
Started on hydralazine 10 mg twice a day and Imdur 30 mg daily by cardiology
Echocardiogram reviewed, continue fluid restriction
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
#Cardiorenal syndrome
Creatinine 2. 5 today,
Held losartan. Nephrology following, help appreciated.
# Hypovolemic shock/hypotension exacerbated by Cardizem drip
Resolved. Blood pressure stable off midodrine
#Chronic dysphagia
Patient was supposed to see Dr. Sweeney on 06/24
Appreciate GI input, EGD done in 2021 shows normal esophagus, no evidence of eosinophilic esophagitis, erythema in the antrum, no H. pylori
GI suspects esophageal dysmotility
No contraindications for PUJA cardioversion, follow-up with Dr. Sweeney in the office
#Hyperkalemia
Resolved. Hold losartan, low K diet
#Hyponatremia
Resolved
Likely due to fluid overload, fluid restrict, Lasix as per nephrology
# Type 2 diabetes
# Hypoglycemia
Hypoglycemia resolved
Continue carb controlled diet, sliding scale insulin
# Type II DE secondary to rapid atrial fibrillation
No chest pain
#Microcytic anemia
B12 and folic acid high
#Yeast infection under b/l breasts
Antifuncal ointment and powder
# Obesity
Affects all aspects of care
# Gastroesophageal reflux disease/history of hiatal hernia
IV Protonix, as needed Imodium for diarrhea
# Hyperlipidemia
Continue statin/Zetia
# History of polymyalgia rheumatica/insomnia
Continue with Tylenol twice daily
DVT ppx - Eliquis
Full Code
Total time spent to see the patient, examine the patient on the floor, review data and lab results, discuss treatment plan with patient, nursing staff around 55 minutes
Anticipated Discharge: Within 24 hours
Subjective/Interval History
-
Date of Service: July 01, 2023
No chest pain
No sob
Objective Data
-
Labs:
Laboratory Results
07/01/23
04:04
Sodium 137
Potassium 3.6
Chloride 102
Carbon Dioxide 32 H
BUN 63 H
Creatinine 2.6 H
Glucose 223 H
Calcium 8.9
Vital Signs:
Vital Signs
Temp Pulse Resp BP Pulse Ox
97.9 F 74 20 145/51 95
07/01/23 03:58 07/01/23 04:01 07/01/23 03:58 07/01/23 03:58 07/01/23 03:58
I&O
06/29/23 06/30/23 07/01/23
06:59 06:59 06:59
Intake Total 480 / 480 720 / 720 240 / 240
Output Total 2400 / 2400 1900 / 1900 2200 / 2200
Balance -1920 / -1919 -1180 / -1180 -1959 / -1959
[2023-07-01 06:55] VITALS: BP 151/54
[2023-07-01 07:07] LABS: Glucose - Point of Care 257 mg/dl (70-99)
[2023-07-01] MEDS: APRESOLINE 10 MG PO (07:36)
[2023-07-01] MEDS: ELIQUIS 2.5 MG PO (07:36)
[2023-07-01] MEDS: PACERONE 200 MG PO (07:37)
[2023-07-01] MEDS: IMDUR (EXTENDED RELEASE) 30 MG PO (07:37)
[2023-07-01] MEDS: TYLENOL 650 MG PO (07:37)
[2023-07-01] MEDS: KCL 20 MEQ PO (07:38)
[2023-07-01] MEDS: LASIX 80 MG IV (07:38)
[2023-07-01] MEDS: MYCOSTATIN OINTMENT 1 APPLIC TOPICAL (07:39)
[2023-07-01] MEDS: DESENEX/MITRAZOL/ZEASORB 1 APPLIC TOPICAL (07:44)
[2023-07-01] MEDS: NOVOLOG FLEXPEN-LOW RESISTANCE 3 UNITS SC (08:13)
[2023-07-01 10:33] VITALS: BP 139/52
--- NOTE | 2023-07-01 11:06 | W.PN.CARDCBS ---
Today's Communication / Plan
-
Cardiovascular stable
Nephrology managing diuretics
Sign off and arrange cardiology follow-up
Impression / Plan
-
PCP: Ashtyn Newby PA-C
Cardiology: Dr. Herrera
Impression:
Presented 06/21/2023 with SOB, fatigue
Acute HFpEF, proBNP 21,200
Newly diagnosed Afib with RVR s/p successful PUJA/CV 06/25/23
New start to chronic Eliquis OAC
Sinus bradycardia
DANIEL with CKD 4
Type 2 diabetes
h/o hypertension
Hyperlipidemia
Polymyalgia rheumatica
Diabetic neuropathy
Obesity
Dysphagia
Hypotension, new to midodrine 06/22/23, then stopped 06/27/23
Holter monitor August 2020: Normal sinus rhythm average 63 bpm occasional PVCs and PACs with rare short atrial and ventricular runs, 2% PVC burden, 1% PAC burden
Echo 08/13/19: EF 50-55%, normal RV, mildly dilated left atrium, aortic sclerosis
Echo 06/23/23: EF 25-30%, global hypokinesis, biatrial enlargement, mild MR, mild TR, small pericardial effusion
Plan:
Weight is down 15 lbs from a peak weight of 191 lbs this admission. Current weight on 07/01/23 if 176 lbs. Last known dry weight from 08/13/19 was 179 lbs.
Cre peaked at 3.3 and is improving with diuresis. Cre is 2.6 on 07/01/23. Previous baseline Cre was 1.77.
Nephrology is managing diuretics
Remains in sinus rhythm status post PUJA/cardioversion
EF down to 25-30% by echo. CM might be related to tachyarrhythmia. Cannot add BB due to sinus bradycardia, Coreg stopped earlier this admission. Cannot add CRUZITO/ARB/aldosterone antagonist due to DANIEL on CKD 4. Patient was started on Imdur ER 30 mg
daily and hydralazine 10 mg BID on 06/29/23 and 06/28/23 respectively. Nephrology cautioning against aggressive GDMT in the setting of cardiorenal syndrome.
Midodrine started and stopped this admission for hypotension that improved and then HTN.
Stable from cardiology viewpoint
Nephrology managing diuretics
Will sign off, call with questions
Will arrange cardiology f/u
HPI: 88-year-old woman who has been short of breath for 1 week following what could have been a gastroenteritis, now with shortness of breath and progressive fatigue over the last month or so.� No prior history of atrial fibrillation.� She presented
to the emergency department with marginal blood pressure, heart rate approximately 140, markedly elevated proBNP and evidence of heart failure with atrial fibrillation and rapid ventricular response.� Heart rate has been difficult to control since
admission on IV diltiazem, she is short of breath, no awareness of tachycardia.� She has dysphagia and was planning to see Dr. Sweeney.
Progress Note - Grapple Crew Leader
Subjective
Date of Service: July 01, 2023
No complaints
Objective
Labs:
06/28/23 03:23
07/01/23 04:04
Labs
Hgb 11.2 g/dL (12.0-16.0) L 06/28/23 03:23
Hct 33.4 % (37.0-47.0) L 06/28/23 03:23
Plt Count 185 10^3/uL (130-400) 06/28/23 03:23
APTT Cancelled 06/22/23 11:10
Sodium 137 mmol/L (135-145) 07/01/23 04:04
Potassium 3.6 mmol/L (3.5-5.1) 07/01/23 04:04
BUN 63 mg/dl (7-17) H 07/01/23 04:04
Creatinine 2.6 mg/dL (0.6-1.0) H 07/01/23 04:04
Glucose 223 mg/dl (70-99) H 07/01/23 04:04
Vital Signs and I&O:
Vital Signs
Temp Pulse Resp BP Pulse Ox
97.5 F 68 20 139/52 97
07/01/23 10:33 07/01/23 10:33 07/01/23 10:33 07/01/23 10:33 07/01/23 10:33
Vital Signs
Temp Pulse Resp BP Pulse Ox
97.5 F 68 20 139/52 97
07/01/23 10:33 07/01/23 10:33 07/01/23 10:33 07/01/23 10:33 07/01/23 10:33
Intake & Output
06/29/23 06/30/23 07/01/23 07/02/23
06:59 06:59 06:59 06:59
Intake Total 480 / 480 720 / 720 240 / 240
Output Total 2400 / 2400 1900 / 1900 2200 / 2200
Balance -1920 / -1920 -1180 / -1180 -1959 / -1959
Physical Exam
Physical Exam
General: Well developed, well nourished in NAD.
Neck: Supple, no JVD, HJR, carotids +2 B/L, no bruits bilaterally.
Heart: Non displaced PMI, RRR, no murmurs, No S3, S4, no rubs.
Lungs: Scattered rhonchi
Extremities: No clubbing, cyanosis or edema bilaterally.
Neuro: Grossly nonfocal, awake, alert and oriented x3.
[2023-07-01 12:02] LABS: Glucose - Point of Care 249 mg/dl (70-99)
[2023-07-01] MEDS: NOVOLOG FLEXPEN-LOW RESISTANCE 2 UNITS SC (12:03)
--- NOTE | 2023-07-01 12:11 | W.DCSUMMARY ---
Discharge Summary
Discharge Data
Date of Admission: 06/21/23
Date of Discharge: 07/01/23
-
Pending Results: No
Hospital Course
88 years old female presented with weakness and shortness of breath for 1 week duration. Patient reported diarrhea and nausea with vomiting at home. She did not have chest pain. In the emergency room, she was found to have rapid atrial
fibrillation and she was started on intravenous Cardizem drip. Her creatinine was 2.9. White blood cell count was 11.4 and potassium was 5.2. Patient had history of diabetes, obesity, chronic kidney disease stage IV, venous insufficiency and
gastroesophageal reflux disease/dysphagia/esophageal dysmotility. Blood pressure went down after starting intravenous Cardizem. Cardizem drip was stopped. Patient was admitted to high-level care. She was seen by landscape supervisor. She was started on
intravenous amiodarone drip and intravenous heparin. The initial plan was to consider transesophageal echocardiogram and cardioversion. Patient was evaluated by gastroenterology and felt there was no contraindication for transesophageal
echocardiogram. Transthoracic echocardiogram showed left ventricular ejection fraction 25 to 30% with global hypokinesis, mild mitral regurgitation, biatrial enlargement, mild tricuspid regurgitation. Metoprolol was given to the patient with
titration of amiodarone. Heparin drip was stopped and she was started on Eliquis. She was started on diuretic therapy with close monitoring of her blood pressure. Oral midodrine was given as needed. Losartan was stopped and she was given Lokelma
with low potassium diet. Potassium level improved. Patient underwent successful cardioversion and she maintained sinus rhythm. Amiodarone drip was stopped and she was started on oral amiodarone. Blood pressure medications were adjusted.
Beta-kosta medication was stopped due to bradycardia and hypotension. Goal directed medical therapy was limited due to ongoing bradycardia, chronic kidney disease and hypotension. She was started on low-dose hydralazine with Imdur. Blood
pressure was monitored. Patient was followed by roll mechanic. Her diuretic therapy was monitored closely with daily check of renal function test. Her creatinine stabilized between 2.5-2.6. Vocational Guidance Counselor recommended to continue Lasix at 40 mg
twice a day at home. Patient remained hemodynamically stable. She was followed by physical therapy and recommended home care services. Patient was discharged in a stable condition.
Discharge Plan
-
Patient Disposition: Home with Home Care
Discharge Diagnosis/Procedures: Paroxysmal atrial fibrillation status post cardioversion, starting new antiarrhythmic medications. Blood thinner called Eliquis(potential side effect of spontaneous bleeding, bleeding after trauma).
Acute on chronic heart failure with reduced ejection fraction. Tachyarrhythmia induced cardiomyopathy, left ventricular ejection fraction down to 25 to 30%.
Chronic kidney disease stage IV
Hypokalemia, replaced. Hyperkalemia, treated.
Diet: 2 Gram Sodium and Restrict fluids to 48 oz
Blood Work: BMP in 5-7 days
Specialty Instructions: Weigh Daily- Call MD for wt gain/loss 3 lbs overnight/5 lbs in 1 week
Activity Restrictions/Additional Instructions:
Note to [facility] Care (if receiving home care through [facility]):
Do not initiate the [facility] Diuretic Protocol
Lower sacrum-clean with saline or soap and water, silicone border foam, change every 3 days and as needed for loosened dressing.
Miconazole powder to breast folds, abdominal/groin folds bid.
Air chair cushion.
Elevate heels off bed with pillow/s.
Referrals:
[facility] [Outside] - in one to two days
Ezequiel Sweeney MD [Active] - (call to reschedule follow up with Dr. Sweeney)
Ashtyn Newby PA [Family Provider] - in one to two weeks
Jaylen Herrera MD [Active] - 07/15/23 1:40 pm (You have an appt to see Dr. Herrera's physician field administrative assistant, María Elena, at the [place] office on 07/15/23 at 1:40 PM. Please call [phone] if you need to reschedule.)
Prescriptions:
New
amiodarone [Pacerone] 200 mg Tablet
200 mg PO DAILY Qty: 30 0RF
isosorbide mononitrate 30 mg Tablet Extended Release 24 Hr
30 mg PO DAILY Qty: 30 0RF
potassium chloride 20 mEq Tablet,Er Particles/Crystals
20 meq PO DAILY Qty: 30 0RF
Eliquis 2.5 mg Tablet
2.5 mg PO BID Qty: 60 0RF
hydralazine 10 mg Tablet
10 mg PO BID Qty: 30 0RF
furosemide [Lasix] 40 mg tablet
40 mg PO BID Qty: 60 0RF
Continued
atorvastatin [Lipitor] 80 mg Tablet
80 mg PO QPM
acetaminophen [Tylenol] 325 mg Tablet
650 mg PO BID
loperamide 2 mg Tablet
2 mg PO Q4HPRN PRN (Reason: diarrhea)
therapeutic multivitamin Tablet
1 tab PO DAILY
bismuth subsalicylate [Pepto-Bismol] 262 mg/15 mL Suspension
262 mg PO BIDPRN PRN (Reason: diarrhea)
ezetimibe [Zetia] 10 mg Tablet
10 mg PO QPM
calcium carbonate-vitamin D3 [Calcium 500 + D] 500 mg-10 mcg (400 unit) Tablet
1 tab PO BID
omega 1-jfv-kjc-fish oil [Fish Oil] 1,000 mg (120 mg-180 mg) Capsule
1 cap PO DAILY
insulin asp prt-insulin aspart [Novolog Mix 70-30FlexPen U-100] 300 UNITS/3 ML insulin pen
15 units SC BID@0800,1700
Discontinued
furosemide [Lasix] 40 mg Tablet
40 mg PO DAILY
carvedilol [Coreg] 25 mg Tablet
25 mg PO BID
aspirin 81 mg Tablet,Delayed Release (Dr/Ec)
81 mg PO QPM
losartan 100 mg Tablet
100 mg PO DAILY
doxazosin 2 mg Tablet
2 mg PO HS
Discharge Orders:
Discharge Patient (As Directed); Ordered 07/01/23
Ordered By: Ry Aly
Care Plan Goals
Care Plan Goals:
Problem: Readiness for enhanced knowledge related to diagnosis and treatment plan
Goal: Understand your diagnosis and treatment plan needs, including medications if applicable.
Instructions: Know your diagnosis, underlying causes and treatment plan options, including medications if applicable. Consult with your health care team to learn about your diagnosis and treatment plan, including medications if applicable.
--- NOTE | 2023-07-01 13:45 | W.PN.NEPH.PH ---
Today's Communication / Plan
-
ok for d/c
Assessment/Plan
-
IMP:
Acute kidney injury
CKD stage IV with baseline creatinine 1.77 -Dr Avila
Decompensated congestive heart failure in setting of new onset atrial fibrillation with rapid ventricular response s/p CV
MACHINE ASSEMBLER SUPERVISOR: Ejection fraction 25 to 30%
Hypotension
Diabetes
History of hypertension
PMR history
Dyslipidemia
Obesity
Troponin leak
Plan:
Acute kidney injury: in setting of cardio renal syndrome
-Creatinine stable at 2.6 today, reached dry wt
change to po diuretics, lasix 40mg BID(home was on 40daily)
Bp are stable, meds adjustment per cards, titrate hydralazine as needed
at d/c f/u Dr Avila
BMP Friday if not Friday
-
-
Date of Service: July 01, 2023
CC / HPI / ROS
-
Chief Complaint:�
DANIEL
History of Present Illness:�
DANIEL on CKD (bl Cr 1.7). Cr stable at 2.6
Now in sinus rhythm following cardioversion on 06/25/2023
wt slowly decreasing\\
Bp are stable
Review of Systems:�
No chest pain
sob better feels baseline
edema improving
Labs
-
Labs:
WBC 10.1 10^3/uL (4.8-10.8) 06/28/23 03:23
RBC 3.00 10^6/uL (4.20-5.40) L 06/28/23 03:23
Hgb 11.2 g/dL (12.0-16.0) L 06/28/23 03:23
Hct 33.4 % (37.0-47.0) L 06/28/23 03:23
Plt Count 185 10^3/uL (130-400) 06/28/23 03:23
Sodium 137 mmol/L (135-145) 07/01/23 04:04
Potassium 3.6 mmol/L (3.5-5.1) 07/01/23 04:04
Chloride 102 mmol/L (98-107) 07/01/23 04:04
Carbon Dioxide 32 mmol/L (22-30) H 07/01/23 04:04
BUN 63 mg/dl (7-17) H 07/01/23 04:04
Creatinine 2.6 mg/dL (0.6-1.0) H 07/01/23 04:04
eGFR 17.32 07/01/23 04:04
Glucose 223 mg/dl (70-99) H 07/01/23 04:04
Calcium 8.9 mg/dl (8.4-10.2) 07/01/23 04:04
Mwd-R-Jfqclvueaxq Pept > 96785 pg/ml 06/29/23 04:42
Albumin 3.2 g/dl (3.5-5.0) L 06/21/23 14:59
Physical Exam
-
Vital Signs:
Vital Signs
Temp Pulse Resp BP Pulse Ox
97.5 F 68 20 139/52 97
07/01/23 10:33 07/01/23 10:33 07/01/23 10:33 07/01/23 10:33 07/01/23 10:33
Cardiovascular:: Regular rate and rhythm
Respiratory:: Bilateral: CTA
Lung Excursion:: Normal
Abdomen:: Nontender and Soft
Extremity Edema:: +1: Bilateral:
Suarez Catheter: No
== END 2023-07-01 16:05 | disposition home health service (06) | DRG 280 ==
LOC: IVU 18:06
PROVIDERS: Family Medicine; Internal Medicine Cardiovascular Disease; Nurse Practitioner Adult Health; Registered Nurse; Student in an Organized Health Care Education/Training Program; ADMITTING PHYSICIAN Internal Medicine; CONSULT PHYSICIAN Internal Medicine Cardiovascular Disease; CONSULT PHYSICIAN Internal Medicine Gastroenterology; CONSULT PHYSICIAN Specialist; EMERGENCY PHYSICIAN Emergency Medicine; FAMILY PHYSICIAN Physician Assistant
PROC: 5A2204Z Restoration of Cardiac Rhythm, Single (ICD-10-PCS; 2023-06-25)
PROC: B24BZZ4 Ultrasonography of Heart with Aorta, Transesophageal (ICD-10-PCS; 2023-06-25)
DX: I48.0 Paroxysmal atrial fibrillation (principal); I21.A1 Myocardial infarction type 2; I50.43 Acute on chronic combined systolic (congestive) and diastolic (congestive) heart failure; R57.1 Hypovolemic shock; I13.0 Hypertensive heart and chronic kidney disease with heart failure and stage 1 through stage 4 chronic kidney disease, or unspecified chronic kidney disease; N18.4 Chronic kidney disease, stage 4 (severe); N17.9 Acute kidney failure, unspecified; I31.39 Other pericardial effusion (noninflammatory); E11.22 Type 2 diabetes mellitus with diabetic chronic kidney disease; E11.649 Type 2 diabetes mellitus with hypoglycemia without coma; E87.5 Hyperkalemia; E86.9 Volume depletion, unspecified; E66.9 Obesity, unspecified; K21.9 Gastro-esophageal reflux disease without esophagitis; E78.00 Pure hypercholesterolemia, unspecified; Z87.891 Personal history of nicotine dependence; Z79.82 Long term (current) use of aspirin; E87.6 Hypokalemia; Z68.32 Body mass index [BMI] 32.0-32.9, adult
CPT/HCPCS: 71045; 71046; 74220; 80048; 80053; 82570; 82607; 82746; 82947; 82962; 83036; 83735; 83880; 84300; 84443; 84484; 85025; 85027; 85730; 92610; 92960; 93005; 93306; 93312; 93320; 93325; 94640; 96365; 96375; 97116; 97162; 97166; 97535; 99291; J1160

== ENCOUNTER 2023-07-03 16:29 | Inpatient (IN) | payer MEDICARE, SELFPAY ==
[2023-07-03] VITALS (16 sets, daily range): BP systolic 91–149; BP diastolic 57–108; BMI 31.6; BMI 31.4
--- NOTE | 2023-07-03 11:29 | ED.GENMED ---
History of Present Illness
General
Chief Complaint: Heart Rate Problem
Time Seen by Provider: 07/03/23 11:28
Travel History
Have you had any contact with someone who has COVID-19?: No
Do you have any symptoms of coronavirus? Fever > 100 degrees, chills, cough, shortness of breath, sore throat, loss of taste or smell, muscle aches, or headache?: No
History of Present Illness
History of Present Illness:
HPI: The patient was sent here by visiting nurse because of high heart rate. She states that visiting nurse also told her yesterday that her heart rate was high 'but not that bad'. She was here in the hospital for an 8-day stay until 2 days ago as
summarized below. The patient has chronic shortness of breath. She has no new symptoms. She cannot sense any palpitations.
EXAM:
GENERAL: Well appearing but appears somewhat generally weak
HEENT: Moist oral mucosa
CARDIOVASCULAR: No murmurs, tachycardic heart rate with occasionally irregular rhythm, No chest wall tenderness
PULMONARY: No respiratory distress, breath sounds are clear and equal
ABDOMEN: Soft with no peritoneal signs, no tenderness
NEUROLOGIC: Excellent strength all extremities, no coordination deficits
PSYCHIATRIC: Appropriate mental status, normal insight and judgement
EXTREMITIES: Nontender, no edema, moves all extremities equally
SKIN: No rash, no lesions
ED COURSE:
11:35 AM: I initially evaluated patient
NUMBER AND COMPLEXITY OF PROBLEMS ADDRESSED AT THE ENCOUNTER
� Chronic conditions affecting care: Atrial fibrillation, CKD stage IV, diabetes, obesity, GERD
� Acute Exacerbation and/or Progression of Chronic Illness: This is a recurrent problem
� Differential Diagnosis includes: Rapid A-fib/flutter, electrolyte abnormality, SVT
AMOUNT AND/OR COMPLEXITY OF DATA TO BE REVIEWED AND ANALYZED
� I performed an independent evaluation of and my interpretation is:
EKG: A-fib 165, PVC, ST abnormality likely rate related
CT:
X-rays:
Laboratory Studies: Troponin 0.054 which is lower than 06/22/2023 at 0.245�she peaked at 0.353 last admission BUN and creatinine chronically elevated, potassium 3.4, white count slightly elevated at 11.1
Other:
� Review of other/old records: The patient was admitted here related to rapid A-fib and was placed on IV Cardizem but then blood pressure dropped and then was on IV amio and IV heparin. At discharge, she was started on Eliquis
2.5 mg twice daily, amiodarone, nitrate, potassium, hydralazine, and Lasix 4 mg twice daily.
� Clinical information was obtained by an independent historian: I spoke to the [id number] at bedside
� Prescriptions/Medications Considered but not given:
� Further testing considered but not performed:
RISK OF COMPLICATIONS AND/OR MORBIDITY OR MORTALITY OF PATIENT MANAGEMENT
� Social determinants of health affecting care: Lives at home and has visiting nurse care
� Discussion with other providers: Discussed with Dr. Dhaliwal; hospitalist for admission
� Escalation of care including admission/observation vs risk of discharge considered: The patient's heart rate in the ED range from 140s to 160s. She is in rapid A-fib/possible flutter. I reviewed old records. We did give a
low-dose of Lopressor around 1:30 PM. Second dose is also been ordered as there has been only slight improvement down to 130s. Blood pressure remained stable. I spoke Dr. Dhaliwal several times for cardiology input but ultimately recommends
hospitalist admission and they will see in consultation. I held off on IV Cardizem as she became hypotensive the last time and ultimately was on IV amiodarone. Cardiology consult still pending.
Past History
Past History
ED Past Medical History: NIDDM
Social History
Living: alone
Phy Exam
Physical Exam
Physical Exam:
See HPI
Course
Orders/Labs/Results
Orders:
Orders
07/03/23 11:21
EKG [Electrocardiogram (*1)] Urgent
Reason for Study: Tachycardia
EKG- Treatment ONCE
07/03/23 11:43
Basic Metabolic Panel Urgent
Complete Blood Count/With Diff Urgent
Free T4 Urgent
Magnesium Urgent
TSH Reflex To Free T4 Urgent
Troponin I Urgent
07/03/23 13:06
Metoprolol [Lopressor] 2.5 mg IV NOW STA
Abnormal Lab Results
07/03/23
11:43
WBC 11.1 H 10^3/uL
(4.8-10.8)
RBC 3.41 L 10^6/uL
(4.20-5.40)
MCV 109.7 H fL
(81.0-99.0)
MCH 37.0 H pg
(27.0-31.0)
RDW 16.5 H %
(11.5-14.5)
MPV 10.6 H fL
(7.4-10.4)
Abs Immat Gran (auto) 0.2 H 10^3/uL
(0-0.05)
Absolute Neuts (auto) 7.5 H 10^3/uL
(1.4-6.5)
Absolute Monos (auto) 1.2 H 10^3/uL
(0.1-0.6)
Immature Gran % 1.4 H %
(0-0.5)
Lymphocytes % 17.5 L %
(20.5-51.1)
Monocytes % 10.6 H %
(1.7-9.3)
Potassium 3.4 L mmol/L
(3.5-5.1)
Carbon Dioxide 32 H mmol/L
(22-30)
BUN 52 H mg/dl
(7-17)
Creatinine 2.8 H mg/dL
(0.6-1.0)
Troponin I 0.054 H* ng/ml
TSH (Reflex) 5.86 H uIU/ml
(0.47-4.68)
07/03/23 11:43
07/03/23 11:43
Vital Signs
Initial and Last Documented VS:
Initial Vital Signs
Temp Pulse Resp BP Pulse Ox
98.4 F 146 18 142/87 97
07/03/23 11:20 07/03/23 11:20 07/03/23 11:20 07/03/23 11:20 07/03/23 11:20
Last Documented Vital Signs
Temp Pulse Resp BP Pulse Ox
98.4 F 134 14 139/90 97
07/03/23 11:20 07/03/23 13:45 07/03/23 13:45 07/03/23 13:00 07/03/23 13:45
*Critical Care Note
Total Time (30-74mins, 75-104mins- exclusive of procedures): Not Applicable
ED Attending Note
-
Portions of this chart may have been created with voice recognition software.� Occasional wrong word or��sound alike� substitutions may have occurred due to the inherent limitations of voice recognition software.
Discharge Plan
Departure
Prescriptions:
No Action
atorvastatin [Lipitor] 80 mg Tablet
80 mg PO QPM
acetaminophen [Tylenol] 325 mg Tablet
650 mg PO BID
loperamide 2 mg Tablet
2 mg PO Q4HPRN PRN (Reason: diarrhea)
therapeutic multivitamin Tablet
1 tab PO DAILY
bismuth subsalicylate [Pepto-Bismol] 262 mg/15 mL Suspension
262 mg PO BIDPRN PRN (Reason: diarrhea)
ezetimibe [Zetia] 10 mg Tablet
10 mg PO QPM
calcium carbonate-vitamin D3 [Calcium 500 + D] 500 mg-10 mcg (400 unit) Tablet
1 tab PO BID
omega 1-ovg-nvf-fish oil [Fish Oil] 1,000 mg (120 mg-180 mg) Capsule
1 cap PO DAILY
insulin asp prt-insulin aspart [Novolog Mix 70-30FlexPen U-100] 300 UNITS/3 ML insulin pen
15 units SC BID@0800,1700
amiodarone [Pacerone] 200 mg Tablet
200 mg PO DAILY Qty: 30 0RF
isosorbide mononitrate 30 mg Tablet Extended Release 24 Hr
30 mg PO DAILY Qty: 30 0RF
potassium chloride 20 mEq Tablet,Er Particles/Crystals
20 meq PO DAILY Qty: 30 0RF
Eliquis 2.5 mg Tablet
2.5 mg PO BID Qty: 60 0RF
hydralazine 10 mg Tablet
10 mg PO BID Qty: 30 0RF
furosemide [Lasix] 40 mg tablet
40 mg PO BID Qty: 60 0RF
Referrals:
Ashtyn Newby PA [Family Provider] -
Interventions
Interventions:
*Risk Screen - Suicide Last Done: 07/03/23 11:44
*General Assessment Last Done: 07/03/23 11:44
*Neglect/Abuse Screening Last Done: 07/03/23 11:44
ED- Fall Risk Assessment Last Done: 07/03/23 11:44
*ED COVID-19 Vaccine History Last Done: 07/03/23 11:44
ED- Cardiac Assessment Last Done: 07/03/23 11:44
ED- Pulmonary Assessment Last Done: 07/03/23 11:44
[2023-07-03 12:14] LABS: % Basophils 1.1 % (0-2); % Eosinophils 2.3 % (0-6); % Immature Granulocytes 1.4 % (0-0.5); % Lymphocytes 17.5 % (20.5-51.1); % Monocytes 10.6 % (1.7-9.3); % Neutrophils 67.1 % (42.2-75.2); Absolute Basophils 0.1 10^3/uL (0-0.2); Absolute Eosinophils 0.3 10^3/uL (0-0.7); Absolute Immature Granulocytes 0.2 10^3/uL (0-0.05); Absolute Lymphocytes 1.9 10^3/uL (1.2-3.4); Absolute Monocytes 1.2 10^3/uL (0.1-0.6); Absolute Neutrophils 7.5 10^3/uL (1.4-6.5); Hematocrit 37.4 % (37.0-47.0); Hemoglobin 12.6 g/dL (12.0-16.0); Mean Corp Hgb Conc. 33.7 g/dL (33.0-37.0); Mean Corpuscular Volume 109.7 fL (81.0-99.0); Mean Platelet Volume 10.6 fL (7.4-10.4); Nucleated Red Blood Cells % 0 %; Platelet Count 218 10^3/uL (130-400); Red Blood Cell Count 3.41 10^6/uL (4.20-5.40); Red Cell Dist. Width 16.5 % (11.5-14.5); White Blood Cell Count 11.1 10^3/uL (4.8-10.8)
[2023-07-03 12:26] LABS: Blood Urea Nitrogen 52 mg/dl (7-17); Calcium 9.9 mg/dl (8.4-10.2); Carbon Dioxide 32 mmol/L (22-30); Chloride 103 mmol/L (98-107); Estimated Creatinine Clearance 14 ml/min; Glucose 87 mg/dl (70-99); Magnesium 1.7 mg/dl (1.6-2.3); Potassium 3.4 mmol/L (3.5-5.1); Sodium 140 mmol/L (135-145); eGFR 15.85
[2023-07-03 12:40] LABS: Troponin I 0.054 ng/ml
[2023-07-03 12:55] LABS: TSH Reflex To Free T4 5.86 uIU/ml (0.47-4.68)
[2023-07-03] MEDS: LOPRESSOR 2.5 MG IV ×2 (13:30→15:23)
--- NOTE | 2023-07-03 14:05 | HPS.HSE ---
Family Physician
-
Family Physician: Ashtyn Newby
Chief Complaint
-
Arrythmia
History of Present Illness
88 female obesity CKD 4 venous insufficiency GERD PMR CAD HFpEF recent hospitalization at this facility 06/21-07/01 for new onset atrial fibrillation RVR during which she was put on therapeutic anticoagulation and underwent successful cardioversion.
Hospitalization was also notable for cardiorenal syndrome for which she was placed on Lasix 40 mg twice a day. Discharged on Eliquis and amiodarone. Few days later, patient unfortunately returns back in A-fib RVR as noted by visiting nurse
services. Reports some palpitation but denies chest pain fevers chills nausea vomiting diarrhea constipation. Patient otherwise feels well though heart rate is noted to be rapid 130s to 140 BP stable
Medical History
Past Medical History
Past Medical History: Reports Other (as above)
Past Surgical History: Reports Other (as above)
Social History
Tobacco: Non-smoker
Alcohol: None
Drug: None
Personal:
Living: Alone
Family History
Family History: Not pertinent (reviewed )
Allergies / Home Medications
Allergies reflects when Allergies were last updated in [employer].
Home Medications with original date entered in [employer]
Allergy/Medication List:
Allergies
Allergy/AdvReac Type Severity Reaction Status Date / Time
No Known Allergies Allergy Verified 09/14/15 09:54
Home Medications
acetaminophen 325 mg tablet (Tylenol) 650 mg PO BID Pain 06/21/23
atorvastatin 80 mg tablet (Lipitor) 80 mg PO QPM High Cholesterol 06/21/23
bismuth subsalicylate 262 mg/15 mL oral suspension (Pepto-Bismol) 262 mg PO BIDPRN PRN diarrhea 06/21/23
calcium carbonate 500 mg-vitamin D3 10 mcg (400 unit) tablet (Calcium 500 + D) 1 tab PO BID Supplement 06/21/23
ezetimibe 10 mg tablet (Zetia) 10 mg PO QPM High Cholesterol 06/21/23
loperamide 2 mg tablet 2 mg PO Q4HPRN PRN diarrhea 06/21/23
omega 5-ivv-nrn-fish oil 1,000 mg (120 mg-180 mg) capsule (Fish Oil) 1 cap PO DAILY High Cholesterol 06/21/23
therapeutic multivitamin 1 tab PO DAILY Supplement 06/21/23
insulin aspar prot-insulin aspart 100 unit/mL (70-30) subcutaneous pen (Novolog Mix 70-30FlexPen U-100) 15 units SC BID@0800,1700 Diabetes 06/22/23
amiodarone 200 mg tablet (Pacerone) 200 mg PO DAILY #30 tabs 07/01/23
apixaban 2.5 mg tablet (Eliquis) 2.5 mg PO BID #60 tabs 07/01/23
furosemide 40 mg tablet (Lasix) 40 mg PO BID #60 tabs 07/01/23
hydralazine 10 mg tablet 10 mg PO BID #30 tabs 07/01/23
isosorbide mononitrate 30 mg tablet,extended release 24 hr 30 mg PO DAILY #30 tabs 07/01/23
potassium chloride 20 mEq tablet,extended release(part/cryst) 20 meq PO DAILY #30 tabs 07/01/23
Review of Systems
-
A 12 point ROS was completed and negative except as noted: Yes
Constitutional: Reports Other (as above)
Physical Exam
Vital Signs
Vital Signs
Temp Pulse Resp BP Pulse Ox
98.4 F 134 14 139/90 97
07/03/23 11:20 07/03/23 13:45 07/03/23 13:45 07/03/23 13:00 07/03/23 13:45
Physical Exam
General: Other (as above)
Laboratory Results
-
07/03/23 11:43
07/03/23 11:43
Laboratory Results
Troponin I 0.054 ng/ml H* 07/03/23 11:43
Impression/Plan
-
ROS
General: Denies fever chills night sweats unexpected weight loss
Neuro: Denies seizure shaking loss of consciousness dizziness vertigo
Psych: denies depression hallucinations confusion manic episodes
Endocrine: Denies polyuria polydipsia polyphagia heat/cold intolerance
HEENT: Denies blindness visual disturbances epistaxis
Pulmonary: denies coughing hemoptysis sneezing sob dyspnea on exertion
Cardiovascular: Reports palpitations denies chest pain leg swelling
Hematology: denies signs symptoms of anemia easy bruising/bleeding
Gastrointestinal: denies nausea vomiting diarrhea constipation hematemesis hematochezia melena
Genito-Urinary: denies retention incontinence dysuria
Musculoskeletal: denies joint pain weakness
Dermatology: denies rash laceration bruising
Physical Exam
General: No pallor, cyanosis, or jaundice. Obese
HEENT: Throat clear. PERRLA Normocephalic atraumatic
NECK: Supple. No JVD Carotid Bruits
RESPIRATORY: Lungs clear to auscultation. No crackles wheezes stridor
CVS: Irregularly irregular rapid heart rate
ABDOMEN: Soft, non-tender. No distension. BS+/normal.
EXTREMITIES: No peripheral cyanosis or edema.
COMMUTATOR REPAIRER: AOx3. No focal deficits.
IMPRESSION:
88 female obesity CKD 4 venous insufficiency GERD PMR CAD HFpEF recent hospitalization at this facility 06/21-07/01 for new onset atrial fibrillation RVR during which she was put on therapeutic anticoagulation and underwent successful cardioversion.
Hospitalization was also notable for cardiorenal syndrome for which she was placed on Lasix 40 mg twice a day. Discharged on Eliquis and amiodarone. Few days later, patient unfortunately returns back in A-fib RVR as noted by visiting nurse
services. Reports some palpitation but denies chest pain fevers chills nausea vomiting diarrhea constipation. Patient otherwise feels well though heart rate is noted to be rapid 130s to 140 BP stable
PLAN:
#Return A-fib RVR
IVU admit
Cardio eval
Starting diltiazem gtt as per discussion with cardio
Hold home amiodarone
Continue home renally dosed Eliquis
#Coronary disease
#Hypertension
#HFpEF
#CKD 4 cardiorenal syndrome
#Mild hypokalemia
Euvolemic
Daily weights I/O
Continue home Lasix, replete potassium as necessary, goal K > 4 Mg>2
Continue home Imdur. hydralazine with holding parameter
#Diabetes
Continue home NovoLog Mix 15 units twice daily
low-dose sliding scale
#Hyperlipidemia
Continue home statin Zetia
DVT prophylaxis Eliquis
GI prophylaxis Protonix
Meds reconciled and resumed as appropriate
Full code
I spent a total of 77 minutes with the patient or on the floor. More than 50% of this time involved counseling and coordination of care.
[2023-07-03] MEDS: KCL 40 MEQ PO ×2 (16:32→22:10)
[2023-07-03] MEDS: CARDIZEM 125 IV (16:32)
--- NOTE | 2023-07-03 16:42 | CON.CAR ---
Addendum entered and electronically signed by Michele Dhaliwal DO 07/03/23 17:39:
I saw and examined the patient.
The District Administrative Assistant's note was reviewed and I agree with the note.
Comment:
Plan:
Recent PUJA/cardioversion and Amiodarone. Home PT noted HR 130s.
Pt admitted for better HR control. IV Cardizem for rate control.
Amiodarone 200 mg TID
Low dose Coreg. Monitor HR as she had previous bradycardia.
Monitor trop and trend until peaks. Cont med tx of nonMI troponin.
She appears euvolemic. Cont Lasix 40 mg BID.
Original Note:
Consultation
Consultation Request
Date/Time Consultation Requested: 07/03/23
Date/Time Consultation Performed: 07/03/23
Requesting Provider: Dr. Gilmore
Performing Provider: Dr. Dhaliwal
Reason for Consultation: Afib with RVR
Medical History
-
History of Present Illness:
Patient came to ER today from home after her home PT noticed an elevated heart rate, she is now being admitted with recurrent atrial fibrillation and rapid ventricular response and cardiology has been consulted. Patient was just admitted to
06/21/2023 until 07/01/2023 for acute heart failure, presumed nonischemic cardiomyopathy related to tachyarrhythmia and newly diagnosed atrial fibrillation and a rapid ventricular response. During that admission the patient was diuresed with IV Lasix
to a discharge weight of 179 pounds. She was discharged to home on Lasix 40 mg PO twice daily. She had a successful PUJA/CV on 06/25/2023 with jewish of sinus rhythm. Prior to that there were attempts at rate control with Cardizem drip that
ultimately had to be stopped due to hypotension. She then received digoxin 125 mcg IV x 2 on 06/21/23. She was then started on Lopressor 12.5 mg PO every 6 hours but changed to Coreg 12.5 mg BID due to reduced EF. Then the Coreg dose had to be
lowered to 3.125 mg BID due to bradycardia and then finally Coreg was stopped due to ongoing bradycardia. Patient had DANIEL initially, but creatinine improved with diuresis. She also initially required midodrine for hypotension but then later had
hypertension and the midodrine was stopped. Her EF was reduced to 25 to 30% by echo and it was felt that this was likely due to tachyarrhythmia.
PMH:
Paroxysmal Afib
Chronic Eliquis OAC
h/o sinus bradycardia
CKD 4
Type 2 diabetes
h/o hypertension
Hyperlipidemia
Polymyalgia rheumatica
Diabetic neuropathy
Obesity
Past Medical History
Past Medical History: Other (in HPI)
Past Surgical History: Gynecological
Social History
Tobacco: Former Smoker
Alcohol: Occasional
Drug: None
Personal:
Living: Alone
Family History
Family History: Reviewed & Not Pertinent
Allergies / Home Medications
Allergy/AdvReac Type Severity Reaction Status Date / Time
No Known Allergies Allergy Verified 09/14/15 09:54
Medication Instructions Recorded Confirmed Type
acetaminophen 325 mg tablet 650 mg PO BID Pain 06/21/23 07/03/23 History
(Tylenol)
atorvastatin 80 mg tablet (Lipitor) 80 mg PO QPM High Cholesterol 06/21/23 07/03/23 History
bismuth subsalicylate 262 mg/15 mL 262 mg PO BIDPRN PRN diarrhea 06/21/23 07/03/23 History
oral suspension (Pepto-Bismol)
calcium carbonate 500 mg-vitamin 1 tab PO BID Supplement 06/21/23 07/03/23 History
D3 10 mcg (400 unit) tablet
(Calcium 500 + D)
ezetimibe 10 mg tablet (Zetia) 10 mg PO QPM High Cholesterol 06/21/23 07/03/23 History
loperamide 2 mg tablet 2 mg PO Q4HPRN PRN diarrhea 06/21/23 07/03/23 History
omega 1-chd-hfe-fish oil 1,000 mg 1 cap PO DAILY High Cholesterol 06/21/23 07/03/23 History
(120 mg-180 mg) capsule (Fish Oil)
therapeutic multivitamin 1 tab PO DAILY Supplement 06/21/23 07/03/23 History
insulin aspar prot-insulin aspart 15 units SC BID@0800,1700 Diabetes 06/22/23 07/03/23 History
100 unit/mL (70-30) subcutaneous
pen (Novolog Mix 70-30FlexPen
U-100)
amiodarone 200 mg tablet (Pacerone) 200 mg PO DAILY #30 tabs 07/01/23 07/03/23 Rx
apixaban 2.5 mg tablet (Eliquis) 2.5 mg PO BID #60 tabs 07/01/23 07/03/23 Rx
furosemide 40 mg tablet (Lasix) 40 mg PO BID #60 tabs 07/01/23 07/03/23 Rx
hydralazine 10 mg tablet 10 mg PO BID #30 tabs 24 07/03/23 Rx
isosorbide mononitrate 30 mg 30 mg PO DAILY #30 tabs 07/01/23 07/03/23 Rx
tablet,extended release 24 hr
potassium chloride 20 mEq 20 meq PO DAILY #30 tabs 07/01/23 07/03/23 Rx
tablet,extended release(part/cryst)
Review of Systems
-
History Source: Patient
All other systems: Negative unless noted
Physical Exam
Vital Signs
Temp Pulse Resp BP Pulse Ox
98.4 F 139 16 125/90 96
07/03/23 11:20 07/03/23 15:30 07/03/23 15:30 07/03/23 15:27 07/03/23 15:30
GEN: NAD. AAO to person, place and situation
HEENT: EOMI
LUNGS: Decreased BS at bases B/L
CV: Irreg irreg and fast
ABD: +BS
EXT: +1 B/L LE edema
NEURO: Gross non-focal
SKIN: No rash
Lab Results
07/03/23 11:43
07/03/23 11:43
Troponin I 0.054 ng/ml H* 07/03/23 11:43
Impression / Plan
-
PCP: Ashtyn Newby PA-C
Cardiology: Dr. Herrera
Impression:
Afib in RVR
newly diagnosed Afib with RVR s/p successful PUJA/CV 06/25/23
Chronic Eliquis OAC
h/o sinus bradycardia
Elevated Troponin
DANIEL with CKD 4
Type 2 diabetes
h/o hypertension
Hyperlipidemia
Polymyalgia rheumatica
Diabetic neuropathy
Obesity
Holter monitor August 2020: Normal sinus rhythm average 63 bpm occasional PVCs and PACs with rare short atrial and ventricular runs, 2% PVC burden, 1% PAC burden
Echo 08/13/19: EF 50-55%, normal RV, mildly dilated left atrium, aortic sclerosis
Echo 06/23/23: EF 25-30%, global hypokinesis, biatrial enlargement, mild MR, mild TR, small pericardial effusion
Plan:
-Patient came to ER today from home after her home PT noticed an elevated heart rate, she is now being admitted with recurrent atrial fibrillation and rapid ventricular response and cardiology has been consulted. Patient was just admitted to
06/21/2023 until 07/01/2023 for acute heart failure, presumed nonischemic cardiomyopathy related to tachyarrhythmia and newly diagnosed atrial fibrillation and a rapid ventricular response. During that admission the patient was diuresed with IV Lasix
to a discharge weight of 179 pounds. She was discharged to home on Lasix 40 mg PO twice daily. She had a successful PUJA/CV on 06/25/2023 with jewish of sinus rhythm. Prior to that there were attempts at rate control with Cardizem drip that
ultimately had to be stopped due to hypotension. She then received digoxin 125 mcg IV x 2 on 06/21/23. She was then started on Lopressor 12.5 mg PO every 6 hours but changed to Coreg 12.5 mg BID due to reduced EF. Then the Coreg dose had to be
lowered to 3.125 mg BID due to bradycardia and then finally Coreg was stopped due to ongoing bradycardia. Patient had DANIEL initially, but creatinine improved with diuresis. She also initially required midodrine for hypotension but then later had
hypertension and the midodrine was stopped. Her EF was reduced to 25 to 30% by echo and it was felt that this was likely due to tachyarrhythmia.
-ECG reviewed by me shows A-fib and rapid ventricular response
-Patient has recurred with atrial fibrillation and a rapid ventricular response following successful PUJA guided cardioversion 06/25/2023. Previously beta-kosta in the form of Coreg had to be reduced and then ultimately stopped due to bradycardia.
-Cardizem gtt started in the ER and running at 10 mg/hr. Would continue Cardizem gtt, but also start Coreg 3.125 mg BID and then increase to help with HR control.
-If HRs cannot be controlled due to bradycardia then consideration for PPM.
-Patient received a greater than 5 gram load of amiodarone last admission. Would not start amiodarone gtt.
-Of note patient was given Digoxin 0.125 mg IV x2 doses back on 06/21/23
-EF down to 25-30% by echo. CM might be related to tachyarrhythmia.
-Cannot add CRUZITO/ARB/aldosterone antagonist due to DANIEL on CKD 4. Patient was started on Imdur ER 30 mg daily and hydralazine 10 mg BID on 06/29/23 and 06/28/23 respectively.
-Initial troponin 0.054 and will be managed as a nonischemic myocardial injury troponin elevation due to rapid A-fib for now.
-Patient does not examine in acute heart failure. Will continue her usual dose of Lasix 40 mg PO BID
[2023-07-03 18:59] LABS: Glucose - Point of Care 125 mg/dl (70-99)
--- NOTE | 2023-07-03 19:29 | PTCARENOTE ---
Patient admitted from ED with SHADIA with RVR. Cardizem IV infusing at 15mg/hr, remains in AF with rates in the 140's. Oriented to the room and plan of care, admission assessment completed. Call mosqueda within reach, report given to the oncoming shift.
[2023-07-03] MEDS: NOVOLOG MIX 70/30 FLEXPEN 15 UNITS SC (19:40)
[2023-07-03] MEDS: LIPITOR 80 MG PO (19:41)
[2023-07-03] MEDS: ZETIA 10 MG PO (19:41)
[2023-07-03] MEDS: TYLENOL 650 MG PO (19:43)
[2023-07-03] MEDS: OSCAL 500 + D 500 MG PO (19:44)
[2023-07-03] MEDS: ELIQUIS 2.5 MG PO (19:44)
[2023-07-03] MEDS: LASIX 40 MG PO (20:05)
[2023-07-03] MEDS: PACERONE 200 MG PO (22:08)
[2023-07-03 22:10] LABS: Glucose - Point of Care 160 mg/dl (70-99)
--- NOTE | 2023-07-03 22:59 | PTCARENOTE ---
Received pt at handoff. AOx3. Tele- Afib 120-130s. Cardizem gtt infusing at 15ml/hr. BP 131/81.
Upon re-assessment, pt BP 93/57 asymptomatic. HR maintaining afib 120s. Cardizem gtt titrated to 10ml/hr d/t low BP. Rocio Gonzalez MD made aware and orders placed. Hydralazine and Coreg not given and PO K 40 ( K 3.4) administered per Rocio Gonzalez MD. Pt
offers no complaints at this time. Pt to bedside commode w/ assist x1. Pt w/ stage 2 pressure injury on lower sacrum. Cleansed w/ saline and silicone border foam placed. Pt educated to reposition self frequently. Wound consult ordered per protocol.
Pt currently resting in bed; call panda w/in reach.
[2023-07-04] VITALS (19 sets, daily range): BP systolic 86–141; BP diastolic 56–92; PULSE 113; BMI 31.2
[2023-07-04] MEDS: LANOXIN 250 MCG IV (00:42)
--- NOTE | 2023-07-04 01:03 | PTCARENOTE ---
MASD noted under b/l breasts. Desenex ordered per nurse protocol.
[2023-07-04] MEDS: CARDIZEM 125 IV (02:39)
[2023-07-04 03:16] LABS: Hematocrit 36.5 % (37.0-47.0); Hemoglobin 12.4 g/dL (12.0-16.0); Mean Corpuscular Hgb 37.6 pg (27.0-31.0); Mean Corpuscular Volume 110.6 fL (81.0-99.0); Mean Platelet Volume 10.8 fL (7.4-10.4); Platelet Count 198 10^3/uL (130-400); Red Cell Dist. Width 16.4 % (11.5-14.5); White Blood Cell Count 10.1 10^3/uL (4.8-10.8)
[2023-07-04 03:36] LABS: Blood Urea Nitrogen 49 mg/dl (7-17); Calcium 9.4 mg/dl (8.4-10.2); Carbon Dioxide 27 mmol/L (22-30); Chloride 105 mmol/L (98-107); Estimated Creatinine Clearance 15 ml/min; Glucose 104 mg/dl (70-99); Magnesium 1.8 mg/dl (1.6-2.3); Potassium 3.9 mmol/L (3.5-5.1); Sodium 141 mmol/L (135-145); eGFR 18.16
[2023-07-04 06:59] LABS: Glucose - Point of Care 126 mg/dl (70-99)
--- NOTE | 2023-07-04 07:21 | PTCARENOTE ---
Patient received from nightshift nurse. Patient is alert and oriented x4, pleasant. Very hard of hearing, wears bilateral hearing aids. Afib with RVR. HR 100s-130s. Audible heart tones, irregular apical pulse. BP 128/92. Palpable pulses, weak
dorsalis pedal pulses. +1 LE and pedal edema. PIV maintained. Cardizem gtt received at 10mg/hr. RA. Oxygen saturation 95%. Upon auscultation, lung sounds diminished throughout. Abdomen round, obese. Hypoactive BS. Voids in BSC with standby assist.
LCW abrasion scabbed and open to air. Bilateral breast MASD has antifungal powder applied. Sacrum has a stage 2 pressure ulcer, present on admission - dressing is clean, dry, intact. Will continue to monitor.
[2023-07-04] MEDS: NOVOLOG FLEXPEN-LOW RESISTANCE SC ×2 (07:33→13:17)
--- NOTE | 2023-07-04 07:37 | W.PN.HOSP.TC ---
Today's Communication/Plan
-
Replete Electrolytes
Rate Rhythm control afib as per Cardio
PT/OT eval
Assessment / Plan
Assessment / Plan
Physical Exam
General: No pallor, cyanosis, or jaundice.� Obese
HEENT: Throat clear. PERRLA Normocephalic atraumatic
NECK: Supple. No JVD Carotid Bruits
RESPIRATORY: Lungs clear to auscultation. No crackles wheezes stridor
CVS: Irregularly irregular tachy
ABDOMEN: Soft, non-tender. No distension. BS+/normal.
EXTREMITIES: No peripheral cyanosis or edema.
BRINE MAKER: AOx3. No focal deficits.
IMPRESSION:
88 female obesity CKD 4 venous insufficiency GERD PMR CAD HFpEF recent hospitalization at this facility 06/21-07/01 for new onset atrial fibrillation RVR during which she was put on therapeutic anticoagulation and underwent successful
cardioversion.� Hospitalization was also notable for cardiorenal syndrome for which she was placed on Lasix 40 mg twice a day.� Discharged on Eliquis and amiodarone.� Few days later, patient unfortunately returns back in A-fib RVR as noted by
visiting nurse services.� Reports some palpitation but denies chest pain fevers chills nausea vomiting diarrhea constipation.� Patient otherwise feels well though heart rate is noted to be rapid 130s to 140 BP stable
PLAN:
#Return A-fib RVR
IVU admit
Cardio eval appreciated
cont dilt gtt amiodarone PO as per cardio
Continue home renally dosed Eliquis
#Coronary disease
#Hypertension
#HFpEF
#CKD 4 cardiorenal syndrome
#Mild hypokalemia
Euvolemic
Daily weights I/O
Continue home Lasix, replete electrolytes as necessary, goal K > 4 Mg>2
Continue home Imdur. hydralazine with holding parameter
#Diabetes
Continue home NovoLog Mix 15 units twice daily
low-dose sliding scale
monitor and titrate insulin regimen as necessary
#Hyperlipidemia
Continue home statin Zetia
DVT prophylaxis Eliquis
GI prophylaxis Protonix
Meds reconciled and resumed as appropriate
Full code
I spent a total of � 52 � minutes with the patient or on the floor. More than 50% of this time involved counseling and coordination of care.
Anticipated Discharge: 24 - 48 hours
Subjective/Interval History
-
Date of Service: July 04, 2023
No acute distress sitting up comfortably in chair. Reports overall feeling well. Patient remains in afib though heart rate better controlled on dilt gtt bp stable.
Objective Data
-
Labs:
Laboratory Results
07/04/23
02:54
WBC 10.1
Hgb 12.4
Hct 36.5 L
Plt Count 198
Sodium 141
Potassium 3.9
Chloride 105
Carbon Dioxide 27
BUN 49 H
Creatinine 2.5 H
Glucose 104 H
Calcium 9.4
Vital Signs:
Vital Signs
Temp Pulse Resp BP Pulse Ox
98.3 F 130 18 126/76 95
07/04/23 06:48 07/04/23 06:48 07/04/23 06:48 07/04/23 02:44 07/04/23 06:48
I&O
07/03/23 07/04/23 07/05/23
06:59 06:59 06:59
Intake Total 360 / 360
Output Total 500 / 500
Balance -140 / -140
[2023-07-04] MEDS: DESENEX/MITRAZOL/ZEASORB 1 APPLIC TOPICAL ×2 (08:26→20:17)
[2023-07-04] MEDS: KCL 20 MEQ PO (08:27)
[2023-07-04] MEDS: PACERONE 200 MG PO ×3 (08:27→22:22)
[2023-07-04] MEDS: ELIQUIS 2.5 MG PO ×2 (08:27→20:17)
[2023-07-04] MEDS: LASIX 40 MG PO ×2 (08:27→20:17)
[2023-07-04] MEDS: PROTONIX 40 MG PO (08:27)
[2023-07-04] MEDS: THERAGRAN 1 TABLET PO (08:27)
[2023-07-04] MEDS: NOVOLOG MIX 70/30 FLEXPEN 15 UNITS SC ×2 (08:27→16:51)
[2023-07-04] MEDS: OSCAL 500 + D 500 MG PO ×2 (08:27→20:23)
[2023-07-04] MEDS: TYLENOL 650 MG PO ×2 (08:27→20:17)
[2023-07-04] MEDS: MAGNESIUM SULFATE 50 IV (11:16)
--- NOTE | 2023-07-04 11:21 | WOUNDNOTE ---
[facility] RN NOTE: Reviewed chart and met with patient, who was sitting in chair. Patient states some discomfort in sacral area that she has had for awhile. She said she has been putting neosporin on the sore area. On assessment, patient has stage 2 PI of
sacrum. No drainage noted on dressing. No odor noted. Blanchable skin surrounds wound. Local wound care provided with 5 layer silicone foam dressing. Patient using Desenex for fungal appearing rash under breasts. Patient reports improving appetite
and states she ambulates with walker. She was able to stand from chair with minimal assistance. Encouraged patient to use air cushion when sitting and change position often. DARLENE Connell given update. Will continue to follow as needed.
[2023-07-04 12:23] LABS: Glucose - Point of Care 247 mg/dl (70-99)
--- NOTE | 2023-07-04 12:31 | CM ---
Addendum entered by CHOLO Kahn 07/04/23 15:25:
VN accepted for CANDELARIA
Original Note:
CM following for DC planning needs.
Patient known to me from prior admission to 06/21-07/01. Pt. was DC'ed at that time to home w/ VN.
Pt. resides alone in a mobile home, 5 KIP. Functionally, patient is indep. at baseline w/ ADLs, mobility using a RW or a SPC. Pt. has mult. family members closeby that assist as needed.
Met w/ patient at bedside. She confirms that she has been receiving VN since DC from [facility] and is pleased w/ them and would like to cont. at time of DC. Will initiate a referral to them for CANDELARIA.
Anticipated DC plan is for [facility].
Will cont. to follow.
--- NOTE | 2023-07-04 13:49 | W.PN.CARDCBS ---
Addendum entered and electronically signed by Ian Gonzalez MD 07/04/23 15:21:
Impression:
Afib in RVR
newly diagnosed Afib with RVR s/p successful PUJA/CV 06/25/23Chronic Eliquis OAC
h/o sinus bradycardia
Elevated Troponin
DANIEL with CKD 4
Type 2 diabetes
h/o hypertension
Hyperlipidemia
Polymyalgia rheumatica
Diabetic neuropathy
Obesity
Holter monitor August 2020: Normal sinus rhythm average 63 bpm occasional PVCs and PACs with rare short atrial and ventricular runs, 2% PVC burden, 1% PAC burden
Echo 08/13/19: EF 50-55%, normal RV, mildly dilated left atrium, aortic sclerosis
Echo 06/23/23: EF 25-30%, global hypokinesis, biatrial enlargement, mild MR, mild TR, small pericardial effusion
Plan:
She appears comfortable but is still has a rapid ventricular response.
Will transition to oral diltiazem plus metoprolol. Continue amiodarone. Digoxin would be another option.
Her heart failure seems reasonably controlled despite her atrial fibrillation.
Renal function remains impaired, defer to hospitalist regarding best management strategy.
Options are somewhat limited, repeat cardioversion may be unlikely to hold up. It may be difficult to get her to PVI and at age 88 this could be problematic. Consideration of an pace and ablate strategy may be warranted.
Will ask electrophysiology to review.
Original Note:
Today's Communication / Plan
-
consider candidacy for repeat CV +/- device +/- PVI due to tachybrady syndrome
currently on amio 200mg TID and IV cardizem drip @10. would attempt to transition IV cardizem to po coreg vs toprol
continue eliquis, but may need to hold if plan for upcoming procedure
continue po lasix 40mg BID
CM regimen limited due to CKD and hypotension
Impression / Plan
-
PCP: Ashtyn Newby PA-C
Cardiology: Dr. Herrera
Impression:
Afib in RVR
newly diagnosed Afib with RVR s/p successful PUJA/CV 06/25/23
Chronic Eliquis OAC
h/o sinus bradycardia
Elevated Troponin
DANIEL with CKD 4
Type 2 diabetes
h/o hypertension
Hyperlipidemia
Polymyalgia rheumatica
Diabetic neuropathy
Obesity
Holter monitor August 2020: Normal sinus rhythm average 63 bpm occasional PVCs and PACs with rare short atrial and ventricular runs, 2% PVC burden, 1% PAC burden
Echo 08/13/19: EF 50-55%, normal RV, mildly dilated left atrium, aortic sclerosis
Echo 06/23/23: EF 25-30%, global hypokinesis, biatrial enlargement, mild MR, mild TR, small pericardial effusion
Plan:
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 She underwent successful PUJA cardioversion on 06/25, however appears to have recurred shortly thereafter and now presents back in rapid AF. She previously did not tolerate Cardizem
drip due to hypotension. Her Coreg had to be stopped due to bradycardia in sinus rhythm and hypotension, at 1 point requiring midodrine. She received greater than 5 g amio load last admission and was discharged on Amio 200 mg daily. Currently she
remains rapid in atrial fibrillation on IV Cardizem drip at 10 as well as p.o. amiodarone 200 mg 3 times daily. She was given IV digoxin x1 overnight due to rapid rates. Unlikely candidate for chronic digoxin therapy given baseline kidney
dysfunction with creatinine in the mid twos.
-Her EF last admission was 25 to 30%, felt to most likely be tachyarrhythmia related. Trop was up to 0.35. This admission, troponin was 0.054. No chest pain. This was previously not investigated further with cath due to risk of ATN in the
setting of CKD stage IV
-would consider utility of repeat CV early next week as well as moving to ablate and pace strategy pending candidacy
-as EF reduced, would need to consider PPM vs ICD.
-if plan for device implant this admission, will need to hold eliquis likely for 72 hours preprocedure in setting of CKD4
-hypotension and bradycardia, as well as CKD, have limited medications for treatment of CHF/CM
-she remains on po lasix 40mg BID and does not examine in acute CHF at present
-reviewed with EP
-d/w nursing
PREADMIT DATA:
-Patient came to ER today from home after her home PT noticed an elevated heart rate, she is now being admitted with recurrent atrial fibrillation and rapid ventricular response and cardiology has been consulted. Patient was just admitted to
06/21/2023 until 07/01/2023 for acute heart failure, presumed nonischemic cardiomyopathy related to tachyarrhythmia and newly diagnosed atrial fibrillation and a rapid ventricular response. During that admission the patient was diuresed with IV Lasix
to a discharge weight of 179 pounds. She was discharged to home on Lasix 40 mg PO twice daily. She had a successful PUJA/CV on 06/25/2023 with mu-ism of sinus rhythm. Prior to that there were attempts at rate control with Cardizem drip that
ultimately had to be stopped due to hypotension. She then received digoxin 125 mcg IV x 2 on 06/21/23. She was then started on Lopressor 12.5 mg PO every 6 hours but changed to Coreg 12.5 mg BID due to reduced EF. Then the Coreg dose had to be
lowered to 3.125 mg BID due to bradycardia and then finally Coreg was stopped due to ongoing bradycardia. Patient had DANIEL initially, but creatinine improved with diuresis. She also initially required midodrine for hypotension but then later had
hypertension and the midodrine was stopped. Her EF was reduced to 25 to 30% by echo and it was felt that this was likely due to tachyarrhythmia.
Progress Note - Patent Searcher
Subjective
Date of Service: July 04, 2023
Denies chest pain, shortness of breath, palpitations
Objective
Labs:
07/04/23 02:54
07/04/23 02:54
Labs
Hgb 12.4 g/dL (12.0-16.0) 07/04/23 02:54
Hct 36.5 % (37.0-47.0) L 07/04/23 02:54
Plt Count 198 10^3/uL (130-400) 07/04/23 02:54
Sodium 141 mmol/L (135-145) 07/04/23 02:54
Potassium 3.9 mmol/L (3.5-5.1) 07/04/23 02:54
BUN 49 mg/dl (7-17) H 07/04/23 02:54
Creatinine 2.5 mg/dL (0.6-1.0) H 07/04/23 02:54
Glucose 104 mg/dl (70-99) H 07/04/23 02:54
Troponins
07/03/23
11:43
Troponin I 0.054 H*
Vital Signs and I&O:
Vital Signs
Temp Pulse Resp BP Pulse Ox
97.9 F 128 16 117/75 96
07/04/23 11:52 07/04/23 11:13 07/04/23 11:52 07/04/23 11:13 07/04/23 11:13
Vital Signs
Temp Pulse Resp BP Pulse Ox
97.9 F 128 16 117/75 96
07/04/23 11:52 07/04/23 11:13 07/04/23 11:52 07/04/23 11:13 07/04/23 11:13
Intake & Output
07/02/23 07/03/23 07/04/23 07/05/23
07:59 07:59 07:59 07:59
Intake Total 370 / 620 510 / 510
Output Total 500 / 500
Balance -130 / 120 510 / 510
Physical Exam
Physical Exam
GEN: No distress, awake, alert, oriented x3. sitting in chair
HEENT: supple, anicteric, mmm, eomi
LUNGS: CTA B/L, no wheezes/rales
CV: Irreg irreg, S1/S2, no murmur
ABD: soft, BS+, NT/ND
EXT: No cyanosis, clubbing. trace edema of B/L LE
NEURO: Gross non-focal
SKIN: Warm, pink, dry. No rash
[2023-07-04 16:52] LABS: Glucose - Point of Care 177 mg/dl (70-99)
[2023-07-04] MEDS: NOVOLOG FLEXPEN-LOW RESISTANCE 1 UNITS SC (17:00)
[2023-07-04] MEDS: COREG 6.25 MG PO (17:45)
[2023-07-04] MEDS: LIPITOR 80 MG PO (17:45)
[2023-07-04] MEDS: ZETIA 10 MG PO (17:45)
[2023-07-04 21:30] LABS: Glucose - Point of Care 157 mg/dl (70-99)
--- NOTE | 2023-07-04 23:10 | PTCARENOTE ---
Received pt at handoff. AOX3. Tele- Afib 80-90s. Cardizem gtt infusing at 10 ml/hr. Pt ambulatory to bathroom w/ rolling walker and standby assist. Sacral foam dressing c/d/i. Offers no complaints at this time. Currently in bed; call panda w/in
reach.
[2023-07-05 02:11] VITALS: BP 121/74
[2023-07-05 02:12] VITALS: BMI 31.7
[2023-07-05 02:47] LABS: Hematocrit 37.2 % (37.0-47.0); Hemoglobin 12.6 g/dL (12.0-16.0); Mean Corp Hgb Conc. 33.9 g/dL (33.0-37.0); Mean Corpuscular Hgb 37.4 pg (27.0-31.0); Mean Corpuscular Volume 110.4 fL (81.0-99.0); Mean Platelet Volume 10.7 fL (7.4-10.4); Platelet Count 203 10^3/uL (130-400); Red Blood Cell Count 3.37 10^6/uL (4.20-5.40); Red Cell Dist. Width 16.5 % (11.5-14.5)
[2023-07-05 03:00] LABS: Blood Urea Nitrogen 52 mg/dl (7-17); Calcium 9.4 mg/dl (8.4-10.2); Carbon Dioxide 29 mmol/L (22-30); Chloride 102 mmol/L (98-107); Estimated Creatinine Clearance 14 ml/min; Glucose 133 mg/dl (70-99); Magnesium 2.4 mg/dl (1.6-2.3); Potassium 4.2 mmol/L (3.5-5.1); Sodium 136 mmol/L (135-145); eGFR 15.85
[2023-07-05] MEDS: CARDIZEM 125 IV (05:23)
[2023-07-05 07:16] VITALS: BP 113/69
--- NOTE | 2023-07-05 07:38 | W.PN.HOSP.TC ---
Today's Communication/Plan
-
Rate Rhythm control afib as per Cardio
PT/OT
glycemic control
blood pressure control
eliquis
Assessment / Plan
Assessment / Plan
Physical Exam
General: No pallor, cyanosis, or jaundice.� Obese
HEENT: Throat clear. PERRLA Normocephalic atraumatic
NECK: Supple. No JVD Carotid Bruits
RESPIRATORY: Lungs clear to auscultation. No crackles wheezes stridor
CVS: Irregularly irregular tachy
ABDOMEN: Soft, non-tender. No distension. BS+/normal.
EXTREMITIES: No peripheral cyanosis or edema.
POST HOLE DIGGER: AOx3. No focal deficits.
IMPRESSION:
88 female obesity CKD 4 venous insufficiency GERD PMR CAD HFpEF recent hospitalization at this facility 06/21-07/01 for new onset atrial fibrillation RVR during which she was put on therapeutic anticoagulation and underwent successful
cardioversion.� Hospitalization was also notable for cardiorenal syndrome for which she was placed on Lasix 40 mg twice a day.� Discharged on Eliquis and amiodarone.� Few days later, patient unfortunately returns back in A-fib RVR as noted by
visiting nurse services.� Reports some palpitation but denies chest pain fevers chills nausea vomiting diarrhea constipation.� Patient otherwise feels well though heart rate is noted to be rapid 130s to 140 BP stable
PLAN:
#Return A-fib RVR
IVU admit
Cardio eval appreciated
amiodarone PO as per cardio, dilt gtt discontinued, Coreg started and titrated up
Continue home renally dosed Eliquis
#Coronary disease
#Hypertension
#HFpEF
#CKD 4 cardiorenal syndrome
#Mild hypokalemia
Euvolemic
Daily weights I/O
Continue home Lasix, replete electrolytes as necessary, goal K > 4 Mg>2
Continue home Imdur. hydralazine with holding parameter
#Diabetes
Continue home NovoLog Mix 15 units twice daily
low-dose sliding scale
monitor and titrate insulin regimen as necessary
#Hyperlipidemia
Continue home statin Zetia
DVT prophylaxis Eliquis
GI prophylaxis Protonix
Meds reconciled and resumed as appropriate
Full code
I spent a total of � 53 � minutes with the patient or on the floor. More than 50% of this time involved counseling and coordination of care.
Anticipated Discharge: 24 - 48 hours
Subjective/Interval History
-
Date of Service: July 05, 2023
No acute distress sitting up comfortably in chair. Reports overall feeling well. Remains in afib but heart rate relatively controlled. Denies palpitations chest pain.
Objective Data
-
Labs:
Laboratory Results
07/05/23
02:09
WBC 11.0 H
Hgb 12.6
Hct 37.2
Plt Count 203
Sodium 136
Potassium 4.2
Chloride 102
Carbon Dioxide 29
BUN 52 H
Creatinine 2.8 H
Glucose 133 H
Calcium 9.4
Vital Signs:
Vital Signs
Temp Pulse Resp BP Pulse Ox
98.1 F 90 18 121/74 94
07/05/23 07:21 07/05/23 02:11 07/05/23 07:21 07/05/23 02:11 07/05/23 07:21
I&O
07/04/23 07/05/23 07/06/23
06:59 06:59 06:59
Intake Total 360 / 370 880 / 880
Output Total 500 / 500 650 / 650
Balance -140 / -130 230 / 230
[2023-07-05 08:19] LABS: Glucose - Point of Care 194 mg/dl (70-99)
[2023-07-05] MEDS: TYLENOL 650 MG PO ×2 (08:21→19:31)
[2023-07-05] MEDS: PROTONIX 40 MG PO (08:21)
[2023-07-05] MEDS: THERAGRAN 1 TABLET PO (08:21)
[2023-07-05] MEDS: CARDIZEM CD 120 MG PO (08:22)
[2023-07-05] MEDS: PACERONE 200 MG PO ×3 (08:22→22:26)
[2023-07-05] MEDS: KCL 20 MEQ PO (08:22)
[2023-07-05] MEDS: ELIQUIS 2.5 MG PO ×2 (08:22→19:32)
[2023-07-05] MEDS: LASIX 40 MG PO ×2 (08:22→19:32)
[2023-07-05] MEDS: OSCAL 500 + D 500 MG PO ×2 (08:22→19:32)
[2023-07-05] MEDS: NOVOLOG FLEXPEN-LOW RESISTANCE 1 UNITS SC (08:23)
[2023-07-05] MEDS: DESENEX/MITRAZOL/ZEASORB 1 APPLIC TOPICAL ×2 (08:23→19:35)
[2023-07-05] MEDS: COREG 6.25 MG PO ×2 (08:24→19:32)
[2023-07-05] MEDS: NOVOLOG MIX 70/30 FLEXPEN 15 UNITS SC ×2 (08:24→18:12)
--- NOTE | 2023-07-05 09:42 | W.PN.CARDCBS ---
Addendum entered and electronically signed by Michele Dhaliwal DO 07/05/23 14:13:
I saw and examined the patient.
The Monologist's note was reviewed and I agree with the note.
Comment:
Plan:
Pt with prior bradycardia and worsened CM, will stop Cardizem for now.
Increase Coreg starting tomorrow
Cont Amiodarone 200 mg TID and eventual repeat cardioversion hopefully as outpt. Likely reducing Amiodarone back to 200 mg daily next 24 hrs.
She remains asymptomatic with her HR.
Cont Eliquis
Cont oral lasix. She does not appear volume overloaded.
She has chronic renal insufficiency and cr is stable overall.
Original Note:
Today's Communication / Plan
-
Stop Cardizem CD
Increase Coreg to 12.5 mg BID starting tomorrow AM
Cont amiodarone 200 mg TID
Impression / Plan
-
PCP: Ashtyn Newby PA-C
Cardiology: Dr. Herrera
Impression:
Afib in RVR
newly diagnosed Afib with RVR s/p successful PUJA/CV 06/25/23
Chronic Eliquis OAC
h/o sinus bradycardia
Elevated Troponin
DANIEL with CKD 4
Chronic HFrEF
CM EF
Type 2 diabetes
h/o hypertension
Hyperlipidemia
Polymyalgia rheumatica
Diabetic neuropathy
Obesity
Holter monitor August 2020: Normal sinus rhythm average 63 bpm occasional PVCs and PACs with rare short atrial and ventricular runs, 2% PVC burden, 1% PAC burden
Echo 08/13/19: EF 50-55%, normal RV, mildly dilated left atrium, aortic sclerosis
Echo 06/23/23: EF 25-30%, global hypokinesis, biatrial enlargement, mild MR, mild TR, small pericardial effusion
Plan:
-Patient remains in AF witb HRs in the low 100s on tele 07/05/23.
-Patient has recurred with atrial fibrillation and a rapid ventricular response following successful PUJA/CV 06/25/2023.�
-Last admission Coreg had to be reduced and then ultimately stopped due to bradycardia, but this admission Coreg has been restarted and is up to 6.25 mg BID and BP is tolerating so will increase Coreg to 12.5 mg BID starting 07/06/23 AM.
-Patient received a greater than 5 gram load of amiodarone last admission. Amiodarone being reloaded this admission at 200 mg TID
-Cardizem gtt initially this admission and then changed to Cardizem CD 120 mg BID, but if patient converts to SR she will likely have sinus bradycardia. Will stop Cardizem CD PO for now as of 07/05/23.
-Of note patient was given Digoxin 0.125 mg IV x2 doses back on 06/21/23 and again digoxin 0.25 mg IV x1 on 07/04/23
-EF down to 25-30% by echo. CM might be related to tachyarrhythmia.
-Cannot add CRUZITO/ARB/aldosterone antagonist due to DANIEL on CKD 4. Patient was started on Imdur ER 30 mg daily and hydralazine 10 mg BID on 06/29/23 and 06/28/23 respectively.
-Initial troponin 0.054 and will be managed as a nonischemic myocardial injury troponin elevation due to rapid A-fib for now.
-Patient does not examine in acute heart failure.� Will continue her usual dose of Lasix 40 mg PO BID
PREADMIT DATA:
-Patient came to ER today from home after her home PT noticed an elevated heart rate, she is now being admitted with recurrent atrial fibrillation and rapid ventricular response and cardiology has been consulted. Patient was just admitted to
06/21/2023 until 07/01/2023 for acute heart failure, presumed nonischemic cardiomyopathy related to tachyarrhythmia and newly diagnosed atrial fibrillation and a rapid ventricular response. During that admission the patient was diuresed with IV Lasix
to a discharge weight of 179 pounds. She was discharged to home on Lasix 40 mg PO twice daily. She had a successful PUJA/CV on 06/25/2023 with latter-day of sinus rhythm. Prior to that there were attempts at rate control with Cardizem drip that
ultimately had to be stopped due to hypotension. She then received digoxin 125 mcg IV x 2 on 06/21/23. She was then started on Lopressor 12.5 mg PO every 6 hours but changed to Coreg 12.5 mg BID due to reduced EF. Then the Coreg dose had to be
lowered to 3.125 mg BID due to bradycardia and then finally Coreg was stopped due to ongoing bradycardia. Patient had DANIEL initially, but creatinine improved with diuresis. She also initially required midodrine for hypotension but then later had
hypertension and the midodrine was stopped. Her EF was reduced to 25 to 30% by echo and it was felt that this was likely due to tachyarrhythmia.
Progress Note - Order Make Up Clerk
Subjective
Date of Service: July 05, 2023
She denies palpitations
Objective
Labs:
07/05/23 02:09
07/05/23 02:09
Labs
Hgb 12.6 g/dL (12.0-16.0) 07/05/23 02:09
Hct 37.2 % (37.0-47.0) 07/05/23 02:09
Plt Count 203 10^3/uL (130-400) 07/05/23 02:09
Sodium 136 mmol/L (135-145) 07/05/23 02:09
Potassium 4.2 mmol/L (3.5-5.1) 07/05/23 02:09
BUN 52 mg/dl (7-17) H 07/05/23 02:09
Creatinine 2.8 mg/dL (0.6-1.0) H 07/05/23 02:09
Glucose 133 mg/dl (70-99) H 07/05/23 02:09
Troponins
07/03/23
11:43
Troponin I 0.054 H*
Vital Signs and I&O:
Vital Signs
Temp Pulse Resp BP Pulse Ox
98.1 F 108 18 113/69 94
07/05/23 07:21 07/05/23 08:22 07/05/23 07:21 07/05/23 08:22 07/05/23 07:21
Vital Signs
Temp Pulse Resp BP Pulse Ox
98.1 F 108 18 113/69 94
07/05/23 07:21 07/05/23 08:22 07/05/23 07:21 07/05/23 08:22 07/05/23 07:21
Intake & Output
07/03/23 07/04/23 07/05/23 07/06/23
06:59 06:59 06:59 06:59
Intake Total 360 / 370 880 / 880
Output Total 500 / 500 650 / 650
Balance -140 / -130 230 / 230
Physical Exam
Physical Exam
GEN: NAD. AAO to person, place and situation
HEENT: EOMI
LUNGS: Decreased BS at bases B/L
CV: Irreg irreg
ABD: +BS
EXT: +1 B/L LE edema
NEURO: Gross non-focal
SKIN: No rash
[2023-07-05 11:06] VITALS: BP 117/78
[2023-07-05 12:48] LABS: Glucose - Point of Care 217 mg/dl (70-99)
[2023-07-05] MEDS: NOVOLOG FLEXPEN-LOW RESISTANCE 2 UNITS SC ×2 (13:11→18:09)
[2023-07-05 15:30] VITALS: BP 120/48
[2023-07-05] MEDS: LIPITOR 80 MG PO (18:00)
[2023-07-05] MEDS: ZETIA 10 MG PO (18:00)
[2023-07-05 18:12] LABS: Glucose - Point of Care 244 mg/dl (70-99)
[2023-07-05 19:30] VITALS: BP 113/76
--- NOTE | 2023-07-05 20:47 | PTCARENOTE ---
Pt received at start of shift, HR A-fib 90s-110s. Pt OOB in chair. Pt set up in bathroom with washcloths and basin, pt washed self. Gown and bed linens changed. Educated pt on plan of care. Pt states no questions at this time. Educated pt on
pressure ulcer prevention. Pt denies any SOB, CP, or lightheadedness/dizziness at this time. Informed pt to notify RN if any changes, call mosqueda within reach.
[2023-07-05 21:56] LABS: Glucose - Point of Care 171 mg/dl (70-99)
[2023-07-05 22:25] VITALS: BP 119/61
[2023-07-06] VITALS (8 sets, daily range): BP systolic 96–138; BP diastolic 52–106; BMI 31.8
[2023-07-06 04:23] LABS: Hematocrit 37.1 % (37.0-47.0); Hemoglobin 12.6 g/dL (12.0-16.0); Mean Corpuscular Hgb 37.2 pg (27.0-31.0); Mean Corpuscular Volume 109.4 fL (81.0-99.0); Mean Platelet Volume 10.8 fL (7.4-10.4); Platelet Count 195 10^3/uL (130-400); Red Blood Cell Count 3.39 10^6/uL (4.20-5.40); Red Cell Dist. Width 16.5 % (11.5-14.5); White Blood Cell Count 11.6 10^3/uL (4.8-10.8)
[2023-07-06 04:49] LABS: Blood Urea Nitrogen 65 mg/dl (7-17); Calcium 9.4 mg/dl (8.4-10.2); Carbon Dioxide 32 mmol/L (22-30); Chloride 97 mmol/L (98-107); Estimated Creatinine Clearance 13 ml/min; Glucose 154 mg/dl (70-99); Magnesium 2.2 mg/dl (1.6-2.3); Potassium 4.3 mmol/L (3.5-5.1); Sodium 136 mmol/L (135-145)
--- NOTE | 2023-07-06 07:21 | W.PN.HOSP.TC ---
Today's Communication/Plan
-
Rate Rhythm control afib as per Cardio
PT/OT
glycemic control
heart rate and blood pressure control
Eliquis
NPO after midnight possible cardioversion
Assessment / Plan
Assessment / Plan
Physical Exam
General: No pallor, cyanosis, or jaundice.� Obese
HEENT: Throat clear. PERRLA Normocephalic atraumatic
NECK: Supple. No JVD Carotid Bruits
RESPIRATORY: Lungs clear to auscultation. No crackles wheezes stridor
CVS: Irregularly irregular tachy
ABDOMEN: Soft, non-tender. No distension. BS+/normal.
EXTREMITIES: No peripheral cyanosis or edema.
WOOD GLUER: AOx3. No focal deficits.
IMPRESSION:
88 female obesity CKD 4 venous insufficiency GERD PMR CAD HFpEF recent hospitalization at this facility 06/21-07/01 for new onset atrial fibrillation RVR during which she was put on therapeutic anticoagulation and underwent successful
cardioversion.� Hospitalization was also notable for cardiorenal syndrome for which she was placed on Lasix 40 mg twice a day.� Discharged on Eliquis and amiodarone.� Few days later, patient unfortunately returns back in A-fib RVR as noted by
visiting nurse services.� Reports some palpitation but denies chest pain fevers chills nausea vomiting diarrhea constipation.� Patient otherwise feels well though heart rate is noted to be rapid 130s to 140 BP stable
PLAN:
#Return A-fib RVR
IVU admit
Cardio eval appreciated
amiodarone PO as per cardio, dilt gtt discontinued, Coreg started and titrated up to 12.5 mg BID, NPO after midnight for possible cardioversion
Continue home renally dosed Eliquis
#Coronary disease
#Hypertension
#HFpEF
#CKD 4 cardiorenal syndrome
#Mild hypokalemia
Euvolemic
Daily weights I/O
Continue home Lasix, replete electrolytes as necessary, goal K > 4 Mg>2
Continue home Imdur. hydralazine with holding parameter
#Diabetes
Continue home NovoLog Mix 15 units twice daily
low-dose sliding scale
monitor and titrate insulin regimen as necessary
#Hyperlipidemia
Continue home statin Zetia
DVT prophylaxis Eliquis
GI prophylaxis Protonix
Full code
I spent a total of � 50 � minutes with the patient or on the floor. More than 50% of this time involved counseling and coordination of care.
Anticipated Discharge: 24 - 48 hours
Subjective/Interval History
-
Date of Service: July 06, 2023
Seen and examined at bedside in no acute distress sitting up comfortably in chair. Denies new acute issues. Reports feeling well denies chest pain palpitations. Remains afib tachy low 100s
Objective Data
-
Labs:
Laboratory Results
07/06/23
03:49
WBC 11.6 H
Hgb 12.6
Hct 37.1
Plt Count 195
Sodium 136
Potassium 4.3
Chloride 97 L
Carbon Dioxide 32 H
BUN 65 H
Creatinine 2.9 H
Glucose 154 H
Calcium 9.4
Vital Signs:
Vital Signs
Temp Pulse Resp BP Pulse Ox
97.9 F 110 18 138/72 97
07/06/23 03:41 07/06/23 03:41 07/06/23 03:41 07/06/23 03:41 07/06/23 03:41
I&O
07/05/23 07/06/23 07/07/23
06:59 06:59 06:59
Intake Total 880 / 880 260 / 260
Output Total 650 / 650 700 / 700
Balance 230 / 230 -440 / -440
[2023-07-06 07:39] LABS: Glucose - Point of Care 180 mg/dl (70-99)
[2023-07-06] MEDS: KCL 20 MEQ PO (07:47)
[2023-07-06] MEDS: PROTONIX 40 MG PO (07:47)
[2023-07-06] MEDS: LASIX 40 MG PO (07:47)
[2023-07-06] MEDS: TYLENOL 650 MG PO ×2 (07:47→19:15)
[2023-07-06] MEDS: OSCAL 500 + D 500 MG PO ×2 (07:47→19:15)
[2023-07-06] MEDS: COREG 12.5 MG PO ×2 (07:48→19:16)
[2023-07-06] MEDS: PACERONE 200 MG PO (07:48)
[2023-07-06] MEDS: THERAGRAN 1 TABLET PO (07:48)
[2023-07-06] MEDS: DESENEX/MITRAZOL/ZEASORB 1 APPLIC TOPICAL ×2 (07:51→19:26)
[2023-07-06] MEDS: ELIQUIS 2.5 MG PO ×2 (07:51→19:16)
[2023-07-06] MEDS: NOVOLOG FLEXPEN-LOW RESISTANCE 1 UNITS SC ×2 (08:23→18:01)
[2023-07-06] MEDS: NOVOLOG MIX 70/30 FLEXPEN 15 UNITS SC ×2 (08:23→18:01)
--- NOTE | 2023-07-06 09:32 | W.PN.CARDCBS ---
Addendum entered and electronically signed by Michele Dhaliwal DO 07/06/23 10:34:
.
First dose of increased Coreg dose this AM.
Original Note:
Today's Communication / Plan
-
Patient remains in AF with HRs in the low 100s on tele Jul 05 and . She remains asymptomatic with regards to her AFib.
Increased Coreg to 12.5 mg BID late Jun 2023 and held Cardizem given CM and prior bradycardia hx. Of note patient was given Digoxin 0.125 mg IV x2 doses back on 06/21/23 and again digoxin 0.25 mg IV x1 on 07/04
Last admit Coreg was stopped for bradycardia but pt is tolerating.
Reduce Amiodarone to 200 mg daily.
Cont Eliquis
Continue rate control strategy for now and consider repeat cardioversion in next 2 weeks. Will make NPO after midnight and consider sooner cardioversion pending HR response.
EF down to 25-30% by echo. CM felt to be related to tachyarrhythmia. Recheck echo once maintaining sinus rhythm to eval for improvement.
Cont medical therapy of nonMI troponin.
She appears euvolemic. Cont Lasix 40 mg PO BID.
She had CRI and her cr remains stable.
Discussed with nursing.
Impression / Plan
-
.
PCP: Ashtyn Newby PA-C
Cardiology: Dr. Herrera
Impression:
Afib in RVR
newly diagnosed Afib with RVR s/p successful PUJA/CV 06/25/23 with recurrent AFib
Chronic Eliquis OAC
Hx sinus bradycardia
NonMI Troponin 0.05, lower than recent admit
DANIEL with CKD 4
Chronic HFrEF
CM EF 25-30% by echo Jun 2023
Type 2 diabetes
Hx hypertension
Hyperlipidemia
Polymyalgia rheumatica
Diabetic neuropathy
Obesity
Holter monitor August 2020: Normal sinus rhythm average 63 bpm occasional PVCs and PACs with rare short atrial and ventricular runs, 2% PVC burden, 1% PAC burden
Echo 08/13/19: EF 50-55%, normal RV, mildly dilated left atrium, aortic sclerosis
Echo 06/23/23: EF 25-30%, global hypokinesis, biatrial enlargement, mild MR, mild TR, small pericardial effusion
Plan:
Patient remains in AF with HRs in the low 100s on tele Jul 05 and . She remains asymptomatic with regards to her AFib.
Increased Coreg to 12.5 mg BID late Jun 2023 and held Cardizem given CM and prior bradycardia hx. Of note patient was given Digoxin 0.125 mg IV x2 doses back on 06/21/23 and again digoxin 0.25 mg IV x1 on 07/04
Last admit Coreg was stopped for bradycardia but pt is tolerating.
Reduce Amiodarone to 200 mg daily.
Cont Eliquis
Continue rate control strategy for now and consider repeat cardioversion in next 2 weeks. Will make NPO after midnight and consider sooner cardioversion pending HR response.
EF down to 25-30% by echo. CM felt to be related to tachyarrhythmia. Recheck echo once maintaining sinus rhythm to eval for improvement.
Cont medical therapy of nonMI troponin.
She appears euvolemic. Cont Lasix 40 mg PO BID.
She had CRI and her cr remains stable.
Discussed with nursing.
PREADMIT DATA:
-Patient came to ER today from home after her home PT noticed an elevated heart rate, she is now being admitted with recurrent atrial fibrillation and rapid ventricular response and cardiology has been consulted. Patient was just admitted to
06/21/2023 until 07/01/2023 for acute heart failure, presumed nonischemic cardiomyopathy related to tachyarrhythmia and newly diagnosed atrial fibrillation and a rapid ventricular response. During that admission the patient was diuresed with IV Lasix
to a discharge weight of 179 pounds. She was discharged to home on Lasix 40 mg PO twice daily. She had a successful PUJA/CV on 06/25/2023 with scientologist of sinus rhythm. Prior to that there were attempts at rate control with Cardizem drip that
ultimately had to be stopped due to hypotension. She then received digoxin 125 mcg IV x 2 on 06/21/23. She was then started on Lopressor 12.5 mg PO every 6 hours but changed to Coreg 12.5 mg BID due to reduced EF. Then the Coreg dose had to be
lowered to 3.125 mg BID due to bradycardia and then finally Coreg was stopped due to ongoing bradycardia. Patient had DANIEL initially, but creatinine improved with diuresis. She also initially required midodrine for hypotension but then later had
hypertension and the midodrine was stopped. Her EF was reduced to 25 to 30% by echo and it was felt that this was likely due to tachyarrhythmia.
Progress Note - Lead Portfolio Manager
Subjective
Date of Service: July 06, 2023
Pt seen and examined. No cp or dyspnea
Objective
Labs:
07/06/23 03:49
07/06/23 03:49
Labs
Hgb 12.6 g/dL (12.0-16.0) 07/06/23 03:49
Hct 37.1 % (37.0-47.0) 07/06/23 03:49
Plt Count 195 10^3/uL (130-400) 07/06/23 03:49
Sodium 136 mmol/L (135-145) 07/06/23 03:49
Potassium 4.3 mmol/L (3.5-5.1) 07/06/23 03:49
BUN 65 mg/dl (7-17) H 07/06/23 03:49
Creatinine 2.9 mg/dL (0.6-1.0) H 07/06/23 03:49
Glucose 154 mg/dl (70-99) H 07/06/23 03:49
Troponins
07/03/23
11:43
Troponin I 0.054 H*
Vital Signs and I&O:
Vital Signs
Temp Pulse Resp BP Pulse Ox
98.2 F 130 18 120/85 97
07/06/23 07:56 07/06/23 07:48 07/06/23 07:56 07/06/23 07:48 07/06/23 08:32
Vital Signs
Temp Pulse Resp BP Pulse Ox
98.2 F 130 18 120/85 97
07/06/23 07:56 07/06/23 07:48 07/06/23 07:56 07/06/23 07:48 07/06/23 08:32
Intake & Output
07/04/23 07/05/23 07/06/23 07/07/23
06:59 06:59 06:59 06:59
Intake Total 360 / 370 880 / 880 260 / 260 480 / 480
Output Total 500 / 500 650 / 650 700 / 700
Balance -140 / -130 230 / 230 -440 / -440 480 / 480
Physical Exam
Physical Exam
General: No acute distress, AAOX3
Neck: Negative JVD
Heart: irregularly irregular, Negative S3 positive S1/S2, Negative S4, No murmur
Lungs: CTA b/l, negative wheezes/rales/rhonchi
Abd: Positive BS, NT/ND, neg rebound/rigidity/guarding
Ext: Negative cyanosis/clubbing/edema
Neuro: nonfocal
--- NOTE | 2023-07-06 10:17 | PTCARENOTE ---
pt continues to be Afib on the monitor, HR in the 100s, VSS. Pt educated on change of medications this am and pt verbalized understanding. pt offers no complaints at this time. pt has been ambulating in room with RW with no issues. call mosqueda within
reach.
[2023-07-06 13:02] LABS: Glucose - Point of Care 202 mg/dl (70-99)
[2023-07-06] MEDS: NOVOLOG FLEXPEN-LOW RESISTANCE 2 UNITS SC (13:03)
[2023-07-06] MEDS: ZETIA 10 MG PO (17:29)
[2023-07-06] MEDS: LIPITOR 80 MG PO (17:29)
[2023-07-06 18:00] LABS: Glucose - Point of Care 196 mg/dl (70-99)
--- NOTE | 2023-07-06 20:30 | PTCARENOTE ---
Pt received at start of shift, HR A-fib 100s-110s. Pt OOB in chair. Pt educated on NPO status starting at 0000 and tentative plan for CV tomorrow. Pt states no further questions at this time. Pt denies any SOB or lightheadedness/dizziness. Informed
to notify RN if any changes, call mosqueda within reach.
[2023-07-06] MEDS: LASIX PO (21:02)
[2023-07-06 21:50] LABS: Glucose - Point of Care 152 mg/dl (70-99)
[2023-07-07 04:09] VITALS: BP 121/74
[2023-07-07 04:37] VITALS: BMI 31.6
[2023-07-07 04:49] LABS: Hematocrit 38.7 % (37.0-47.0); Mean Corp Hgb Conc. 33.6 g/dL (33.0-37.0); Mean Corpuscular Hgb 36.9 pg (27.0-31.0); Mean Corpuscular Volume 109.9 fL (81.0-99.0); Mean Platelet Volume 11.1 fL (7.4-10.4); Platelet Count 178 10^3/uL (130-400); Red Blood Cell Count 3.52 10^6/uL (4.20-5.40); Red Cell Dist. Width 16.6 % (11.5-14.5); White Blood Cell Count 9.8 10^3/uL (4.8-10.8)
[2023-07-07 05:10] LABS: Blood Urea Nitrogen 60 mg/dl (7-17); Carbon Dioxide 30 mmol/L (22-30); Chloride 101 mmol/L (98-107); Estimated Creatinine Clearance 13 ml/min; Glucose 125 mg/dl (70-99); Magnesium 2.2 mg/dl (1.6-2.3); Potassium 4.2 mmol/L (3.5-5.1); Sodium 135 mmol/L (135-145)
[2023-07-07 07:50] VITALS: BP 141/89
[2023-07-07 08:03] LABS: Glucose - Point of Care 147 mg/dl (70-99)
[2023-07-07] MEDS: NOVOLOG FLEXPEN-LOW RESISTANCE SC (08:14)
--- NOTE | 2023-07-07 08:33 | W.PN.CARDCBS ---
Addendum entered and electronically signed by Michele Dhaliwal DO 07/07/23 16:00:
.
Reviewed cardioversion and med changes with pt
Outpt cardiac followup
Reduce Coreg given prior hx of bradycardia
Hold off on resuming Imdur and Hydralazine for now to give more room for bp
Reviewed with pt and primary service.
Original Note:
Today's Communication / Plan
-
Patient remains in AF with HRs 100-120s. She remains asymptomatic with regards to her AFib for the most part with some palpitations.
Cont increased Coreg. Cardizem stopped due to CM and prior bradycardia.
Last admit Coreg was stopped for bradycardia but pt is tolerating.
Cont Amiodarone to 200 mg daily after receiving Amiodarone 200 mg TID this admit and amiodarone load last admit.
Cont Eliquis
Discussed with EP, reasonable to do a cardioversion on second amiodarone load. She is agreeable.
EF down to 25-30% by echo. CM felt to be related to tachyarrhythmia. Recheck echo once maintaining sinus rhythm to eval for improvement as outpt.
Cont medical therapy of nonMI troponin.
She remains euvolemic. Cont Lasix 40 mg PO BID.
Impression / Plan
-
.
PCP: Ashtyn Newby PA-C
Cardiology: Dr. Herrera
Impression:
Afib in RVR
newly diagnosed Afib with RVR s/p successful PUJA/CV 06/25/23 with recurrent AFib
Chronic Eliquis OAC
Hx sinus bradycardia
NonMI Troponin 0.05, lower than recent admit
DANIEL with CKD 4
Chronic HFrEF
CM EF 25-30% by echo Jun 2023
Type 2 diabetes
Hx hypertension
Hyperlipidemia
Polymyalgia rheumatica
Diabetic neuropathy
Obesity
Holter monitor August 2020: Normal sinus rhythm average 63 bpm occasional PVCs and PACs with rare short atrial and ventricular runs, 2% PVC burden, 1% PAC burden
Echo 08/13/19: EF 50-55%, normal RV, mildly dilated left atrium, aortic sclerosis
Echo 06/23/23: EF 25-30%, global hypokinesis, biatrial enlargement, mild MR, mild TR, small pericardial effusion
Plan:
Patient remains in AF with HRs 100-120s. She remains asymptomatic with regards to her AFib for the most part with some palpitations.
Cont increased Coreg. Cardizem stopped due to CM and prior bradycardia.
Last admit Coreg was stopped for bradycardia but pt is tolerating.
Cont Amiodarone to 200 mg daily after receiving Amiodarone 200 mg TID this admit and amiodarone load last admit.
Cont Eliquis
Discussed with EP, reasonable to do a cardioversion on second amiodarone load. She is agreeable.
EF down to 25-30% by echo. CM felt to be related to tachyarrhythmia. Recheck echo once maintaining sinus rhythm to eval for improvement as outpt.
Cont medical therapy of nonMI troponin.
She remains euvolemic. Cont Lasix 40 mg PO BID.
She had CRI and her cr remains stable.
PREADMIT DATA:
-Patient came to ER today from home after her home PT noticed an elevated heart rate, she is now being admitted with recurrent atrial fibrillation and rapid ventricular response and cardiology has been consulted. Patient was just admitted to
06/21/2023 until 07/01/2023 for acute heart failure, presumed nonischemic cardiomyopathy related to tachyarrhythmia and newly diagnosed atrial fibrillation and a rapid ventricular response. During that admission the patient was diuresed with IV Lasix
to a discharge weight of 179 pounds. She was discharged to home on Lasix 40 mg PO twice daily. She had a successful PUJA/CV on 06/25/2023 with rastafari of sinus rhythm. Prior to that there were attempts at rate control with Cardizem drip that
ultimately had to be stopped due to hypotension. She then received digoxin 125 mcg IV x 2 on 06/21/23. She was then started on Lopressor 12.5 mg PO every 6 hours but changed to Coreg 12.5 mg BID due to reduced EF. Then the Coreg dose had to be
lowered to 3.125 mg BID due to bradycardia and then finally Coreg was stopped due to ongoing bradycardia. Patient had DANIEL initially, but creatinine improved with diuresis. She also initially required midodrine for hypotension but then later had
hypertension and the midodrine was stopped. Her EF was reduced to 25 to 30% by echo and it was felt that this was likely due to tachyarrhythmia.
Progress Note - Mammography Technician
Subjective
Date of Service: July 07, 2023
Pt seen and examined. No cp or dyspnea
Objective
Labs:
07/07/23 04:28
07/07/23 04:28
Labs
Hgb 13.0 g/dL (12.0-16.0) 07/07/23 04:28
Hct 38.7 % (37.0-47.0) 07/07/23 04:28
Plt Count 178 10^3/uL (130-400) 07/07/23 04:28
Sodium 135 mmol/L (135-145) 07/07/23 04:28
Potassium 4.2 mmol/L (3.5-5.1) 07/07/23 04:28
BUN 60 mg/dl (7-17) H 07/07/23 04:28
Creatinine 2.9 mg/dL (0.6-1.0) H 07/07/23 04:28
Glucose 125 mg/dl (70-99) H 07/07/23 04:28
Vital Signs and I&O:
Vital Signs
Temp Pulse Resp BP Pulse Ox
97.8 F 109 20 121/74 97
07/07/23 07:47 07/07/23 04:09 07/07/23 07:47 07/07/23 04:09 07/07/23 07:47
Vital Signs
Temp Pulse Resp BP Pulse Ox
97.8 F 109 20 121/74 97
07/07/23 07:47 07/07/23 04:09 07/07/23 07:47 07/07/23 04:09 07/07/23 07:47
Intake & Output
07/05/23 07/06/23 07/07/23 07/08/23
06:59 06:59 06:59 06:59
Intake Total 880 / 880 260 / 260 480 / 480
Output Total 650 / 650 700 / 700 1475 / 1475 150 / 150
Balance 230 / 230 -440 / -440 -995 / -995 -150 / -150
Physical Exam
Physical Exam
General: No acute distress, AAOX3
Neck: Negative JVD
Heart: Irregularly irregular, Negative S3 positive S1/S2, Negative S4, No murmur
Lungs: CTA b/l, negative wheezes/rales/rhonchi
Abd: Positive BS, NT/ND, neg rebound/rigidity/guarding
Ext: Negative cyanosis/clubbing/edema
Neuro: nonfocal
[2023-07-07] MEDS: ELIQUIS 2.5 MG PO (09:03)
[2023-07-07] MEDS: COREG 12.5 MG PO (09:03)
[2023-07-07] MEDS: PACERONE 200 MG PO (09:03)
[2023-07-07] MEDS: PROTONIX 40 MG PO (09:03)
--- NOTE | 2023-07-07 10:09 | ITS.CL.CARDI ---
Fruit [facility]ayer - Cardioversion
Cardioversion
Procedure Report:
Date of Procedure: 07/07/23.
Procedure: Cardioversion.
Indication: Symptomatic atrial fibrillation.
Performing Physician: Madonna Sanchez MD
Technique: The patient was brought to the holding area. Signed informed consent was obtained. A time out was called and performed. The patient was sedated by a member of the anesthesia service. Anticoagulation status was reviewed and was
appropriate. R-2 pads were placed anteriorly and posteriorly. A 200 J synchronized biphasic shock restored normal sinus rhythm without significant bradycardia. There were no complications.
Conclusion: Uncomplicated cardioversion from atrial fibrillation to sinus rhythm with primary av conduction delay.
Recommendation: Routine post cardioversion care. Continue half-way anticoagulation.
cc: Dr Dhaliwal
[2023-07-07 10:56] VITALS: BP 144/64
--- NOTE | 2023-07-07 10:59 | PTCARENOTE ---
Rec'd Pt post CV, A,A+Ox3, denies pain. Pt now in SR 60's.
[2023-07-07] MEDS: LASIX 40 MG PO (11:23)
[2023-07-07] MEDS: KCL 20 MEQ PO (11:23)
[2023-07-07] MEDS: TYLENOL 650 MG PO (11:23)
[2023-07-07] MEDS: THERAGRAN 1 TABLET PO (11:23)
[2023-07-07] MEDS: OSCAL 500 + D 500 MG PO (11:23)
[2023-07-07 11:58] LABS: Glucose - Point of Care 197 mg/dl (70-99)
[2023-07-07] MEDS: DESENEX/MITRAZOL/ZEASORB 1 APPLIC TOPICAL (11:59)
[2023-07-07] MEDS: NOVOLOG MIX 70/30 FLEXPEN 15 UNITS SC (11:59)
[2023-07-07] MEDS: NOVOLOG FLEXPEN-LOW RESISTANCE 1 UNITS SC (12:00)
[2023-07-07 12:04] VITALS: BP 128/56
--- NOTE | 2023-07-07 13:00 | CM ---
dc plans remain home when medically stable. [facility] set up.
--- NOTE | 2023-07-07 14:35 | VNURNOTE ---
Patient is current with [facility] since 07/02, will monitor progress and plan at discharge.
--- NOTE | 2023-07-07 14:53 | W.DCSUMMARY ---
Discharge Summary
Discharge Data
Date of Admission: 07/03/23
Date of Discharge: 07/07/23
-
Pending Results: No
Hospital Course
DISCHARGE DIAGNOSIS:
1. Atrial Fibrillation
2. Hypertension
3. Hyperlipidemia
4. Type 2 diabetes mellitus with diabetic chronic kidney disease
BRIEF HOSPITAL COURSE: This is an 88 year-old female with PMH CKD 4, GERD, PMR, CAD, HFpEF presents to ED for recurrent Atrial Fibrillation and Rapid ventricular response. Patient was hospitalized at this facility 06/21 - 07/01 for new onset AFib
RVR. At that time, she was put on therapeutic anticoagulation and underwent successful PUJA/cardioversion on 06/25 and discharged home on Eliquis and Amiodarone. Few days after discharge, her home PT noticed an elevated heart rate and sent her to the
ED. On presentation to the ED, patient was afebrile, and reported some palpitation but denies Chest pain, fever, chills, nausea, vomiting, diarrhea. Heart rate was noted to be rapid 130s to 140. Blood pressure stable. Examination with ECG at the ED
showed Atrial Fibrillation and rapid ventricular response. Patient was started on Cardizem ggt in the ER and Coreg to help with Heart rate control. Over the course of her hospital stay, she appeared comfortable and remained asymptomatic on
medication. PUJA/Cardioversion done on 07/07 successful with caodaism of sinus rhythm. The patient will be discharged today with Amiodarone 200mg QD, Coreg 3.125 mg BID, Eliquis. Patient is scheduled to follow up with Cardiology 07/15/23.
Hypertension: The patient will be continued on current medication
On the day of discharge, Temperature 97.8, BP 128/56, HR 59, O2 SAT 98% on room air
Physical Examination: The patient is awake, alert, in no acute distress. Lungs are clear to auscultation. Heart is Irregularly Irregular with presence of S1/S2 and no murmur. Abdomen is soft, non tender, non distended. Extremities show no peripheral
edema.
Discharge Plan
-
Patient Disposition: Home (Routine Discharge)
Discharge Diagnosis/Procedures: Atrial fibrillation RVR
Condition: Good
Diet: No restrictions
Activity: No restrictions
Stop these medications:: Pepto-bismol discontinued due to concern interaction with Eliquis
Activity Restrictions/Additional Instructions:
Wound Care Instructions Sacrum- clean with normal saline or soap and water. Apply sacral foam dressing. Change every 3 days or when loose or soiled
Keep pressure off of sacrum by changing positions frequently
Increase protein in your diet
Keep skin dry
Keep heels off-loaded when in recliner
Use air cushion when in recliner.
Cardiology instructions:
-Take amiodarone 200 mg once a day to help keep your heart in a regular rhythm.
-Take Coreg (carvedilol) 3.125 mg twice a day to help your heart muscle get stronger and to help keep your heart rate slower.
-Take Eliquis 2.5 mg twice a day to prevent blood clots and reduce your stroke risk due to Afib (atrial fibrillation).
Referrals:
[facility] [Outside]
Ashtyn Newby PA [Family Provider] - in three to four weeks
Jaylen Herrera MD [Active] - (You have an appt to see Dr. Herrera's physician school office assistant, María Elena, at the [facility] on 07/15/23 at 1:40 PM. Please call [phone] if you need to reschedule.)
Prescriptions:
New
carvedilol 3.125 mg tablet
3.125 mg PO BID Qty: 30 0RF
Continued
atorvastatin [Lipitor] 80 mg Tablet
80 mg PO QPM
acetaminophen [Tylenol] 325 mg Tablet
650 mg PO BID
loperamide 2 mg Tablet
2 mg PO Q4HPRN PRN (Reason: diarrhea)
therapeutic multivitamin Tablet
1 tab PO DAILY
ezetimibe [Zetia] 10 mg Tablet
10 mg PO QPM
calcium carbonate-vitamin D3 [Calcium 500 + D] 500 mg-10 mcg (400 unit) Tablet
1 tab PO BID
omega [id number] oil [Fish Oil] 1,000 mg (120 mg-180 mg) Capsule
1 cap PO DAILY
insulin asp prt-insulin aspart [Novolog Mix 70-30FlexPen U-100] 300 UNITS/3 ML insulin pen
15 units SC BID@0800,1700
amiodarone [Pacerone] 200 mg Tablet
200 mg PO DAILY Qty: 30 0RF
isosorbide mononitrate 30 mg Tablet Extended Release 24 Hr
30 mg PO DAILY Qty: 30 0RF
potassium chloride 20 mEq Tablet,Er Particles/Crystals
20 meq PO DAILY Qty: 30 0RF
Eliquis 2.5 mg Tablet
2.5 mg PO BID Qty: 60 0RF
hydralazine 10 mg Tablet
10 mg PO BID Qty: 30 0RF
furosemide [Lasix] 40 mg tablet
40 mg PO BID Qty: 60 0RF
Discontinued
bismuth subsalicylate [Pepto-Bismol] 262 mg/15 mL Suspension
262 mg PO BIDPRN PRN (Reason: diarrhea)
Discharge Orders:
Discharge Patient (As Directed); Ordered 07/07/23
Ordered By: Jeanette Singleton
Care Plan Goals
Care Plan Goals:
Problem: Readiness for enhanced knowledge related to diagnosis and treatment plan
Goal: Understand your diagnosis and treatment plan needs, including medications if applicable.
Instructions: Know your diagnosis, underlying causes and treatment plan options, including medications if applicable. Consult with your health care team to learn about your diagnosis and treatment plan, including medications if applicable.
== END 2023-07-07 17:03 | disposition home health service (06) | DRG 309 ==
LOC: IVU 16:29
PROVIDERS: Internal Medicine Cardiovascular Disease; ADMITTING PHYSICIAN Internal Medicine; ATTENDING PHYSICIAN Internal Medicine; CONSULT PHYSICIAN Nuclear Medicine Nuclear Cardiology; EMERGENCY PHYSICIAN Emergency Medicine; FAMILY PHYSICIAN Physician Assistant
PROC: 5A2204Z Restoration of Cardiac Rhythm, Single (ICD-10-PCS; 2023-07-07)
DX: I48.0 Paroxysmal atrial fibrillation (principal); I13.0 Hypertensive heart and chronic kidney disease with heart failure and stage 1 through stage 4 chronic kidney disease, or unspecified chronic kidney disease; I50.32 Chronic diastolic (congestive) heart failure; N18.4 Chronic kidney disease, stage 4 (severe); N17.9 Acute kidney failure, unspecified; I5A Non-ischemic myocardial injury (non-traumatic); Z79.01 Long term (current) use of anticoagulants; E87.6 Hypokalemia; Z79.84 Long term (current) use of oral hypoglycemic drugs; E11.22 Type 2 diabetes mellitus with diabetic chronic kidney disease; E11.40 Type 2 diabetes mellitus with diabetic neuropathy, unspecified; E78.00 Pure hypercholesterolemia, unspecified; E66.9 Obesity, unspecified; M35.3 Polymyalgia rheumatica
CPT/HCPCS: 80048; 82962; 83735; 84439; 84443; 84484; 85025; 85027; 92960; 93005; 96374; 96376; 97162; 97166; 99285; J1160

== ENCOUNTER → 2023-09-30 12:48 | Outpatient (REF) | payer OTHER, SELFPAY | LOC: RCS 12:48 | PROVIDERS: ATTENDING PHYSICIAN Physician Assistant Medical; FAMILY PHYSICIAN Physician Assistant | DX: I50.20 Unspecified systolic (congestive) heart failure (principal); I42.9 Cardiomyopathy, unspecified | CPT/HCPCS: 93306 ==

== ENCOUNTER → 2024-01-06 06:24 | Day surgery (SDC) | payer OTHER, SELFPAY ==
[2024-01-06 10:27] LABS: Glucose - Point of Care 141 mg/dl (70-99)
== END ==
LOC: GI 06:24
PROVIDERS: ATTENDING PHYSICIAN Specialist
DX: R13.10 Dysphagia, unspecified (principal); R12 Heartburn; R11.10 Vomiting, unspecified; K31.89 Other diseases of stomach and duodenum; K29.50 Unspecified chronic gastritis without bleeding
CPT/HCPCS: 43239; 88305; 82962; 88342

== ENCOUNTER → 2024-01-21 11:18 | Outpatient (REF) | payer OTHER, SELFPAY | LOC: RAD 11:18 | PROVIDERS: ATTENDING PHYSICIAN Internal Medicine Cardiovascular Disease; FAMILY PHYSICIAN Physician Assistant | DX: Z79.899 Other long term (current) drug therapy (principal) | CPT/HCPCS: 71046 ==

== ENCOUNTER → 2024-08-18 13:44 | Outpatient (REF) | payer OTHER, SELFPAY | LOC: RAD 13:44 | PROVIDERS: ATTENDING PHYSICIAN Internal Medicine Cardiovascular Disease; FAMILY PHYSICIAN Physician Assistant | DX: I48.0 Paroxysmal atrial fibrillation (principal) | CPT/HCPCS: 71046 ==

== ENCOUNTER → 2025-02-22 11:47 | Outpatient (REF) | payer OTHER, SELFPAY | LOC: RAD 11:47 | PROVIDERS: ATTENDING PHYSICIAN Internal Medicine Cardiovascular Disease; FAMILY PHYSICIAN Physician Assistant | DX: Z79.899 Other long term (current) drug therapy (principal) | CPT/HCPCS: 71046 ==

== ENCOUNTER → 2025-03-21 11:04 | Outpatient (REF) | payer OTHER, SELFPAY | LOC: RCS 11:04 | PROVIDERS: ATTENDING PHYSICIAN Internal Medicine Cardiovascular Disease; FAMILY PHYSICIAN Physician Assistant | DX: I48.0 Paroxysmal atrial fibrillation (principal); I50.32 Chronic diastolic (congestive) heart failure | CPT/HCPCS: 71046; 93306 ==